=== PATIENT | female | born 1960 | race Caucasian/White ===

== ENCOUNTER 2017-03-01 17:16 | Emergency (ER) | payer MEDICAID, SELFPAY | END 2017-03-01 19:59 | disposition home or self-care (01) | PROVIDERS: Emergency Provider Emergency Medicine; Family Provider Internal Medicine Adolescent Medicine; Visit Provider Emergency Medicine | DX: R07.89 Other chest pain (principal); D61.818 Other pancytopenia; K74.69 Other cirrhosis of liver; I85.10 Secondary esophageal varices without bleeding; Z79.899 Other long term (current) drug therapy | CPT/HCPCS: 71020; 80053; 82550; 82553; 83605; 84484; 85025; 87040; 93005; 99284 ==

== ENCOUNTER → 2017-03-03 | Outpatient (CLI) | payer MEDICAID, SELFPAY | PROVIDERS: Visit Provider Internal Medicine Adolescent Medicine | DX: D50.9 Iron deficiency anemia, unspecified (principal) | CPT/HCPCS: 36415; 85025 ==

== ENCOUNTER → 2017-03-17 15:50 | Outpatient (CLI) | payer MEDICAID, SELFPAY ==
[2017-03-17 16:14] LABS: Eosinophils # 0.1 K/mm3 (0.0-0.4); Eosinophils % 2.9 % (0.1-12.0); Hematocrit 27.5 % (37.0-47.0); Hemoglobin 8.1 g/dL (12.2-16.2); Lymphocytes # 0.7 K/mm3 (0.7-4.5); Mean Corpuscular HGB Conc 29.3 g/dL (31.8-35.4); Mean Corpuscular Hemoglobin 21.8 pg (27.0-31.2); Mean Corpuscular Volume 74.4 fl (81-99); Mean Platelet Volume 8.9 fl (7.4-10.4); Monocytes # 0.2 K/mm3 (0.1-1.0); Neutrophils # 2.1 K/mm3 (1.8-7.8); Platelet Count 90 K/mm3 (142-424); Red Cell Distribution Width 15.5 % (11.5-17.5)
== END ==
PROVIDERS: PCP Internal Medicine Adolescent Medicine; Visit Provider Internal Medicine Adolescent Medicine
DX: D50.9 Iron deficiency anemia, unspecified (principal)
CPT/HCPCS: 36415; 85025

== ENCOUNTER → 2017-04-24 15:06 | Outpatient (CLI) | payer MEDICAID, SELFPAY ==
[2017-04-24 15:31] LABS: Eosinophils # 0.1 K/mm3 (0.0-0.4); Eosinophils % 2.9 % (0.1-12.0); Hematocrit 29.1 % (37.0-47.0); Hemoglobin 8.3 g/dL (12.2-16.2); Lymphocytes # 0.7 K/mm3 (0.7-4.5); Lymphocytes % 24.9 K/mm3 (10-50); Mean Corpuscular HGB Conc 28.6 g/dL (31.8-35.4); Mean Corpuscular Hemoglobin 21.1 pg (27.0-31.2); Mean Corpuscular Volume 73.8 fl (81-99); Mean Platelet Volume 10.1 fl (7.4-10.4); Monocytes # 0.1 K/mm3 (0.1-1.0); Monocytes % 4.5 % (1.7-9.3); Neutrophils % 66.7 % (37.0-80.0); Platelet Count 74 K/mm3 (142-424); Red Blood Count 3.95 M/mm3 (4.20-5.40); Red Cell Distribution Width 16.9 % (11.5-17.5)
[2017-04-24 16:42] LABS: Alanine Aminotransferase 35 U/L (12-78); Albumin Level 3.7 gm/dL (3.4-5.0); Albumin/Globulin Ratio 0.9 (1.1-1.8); Alkaline Phosphatase 134 U/L (46-116); Anion Gap 11.6 mEq/L (5-15); Aspartate Amino Transferase 38 U/L (15-37); Bilirubin,Total 0.5 mg/dL (0.2-1.0); Blood Urea Nitrogen 8 mg/dL (7-18); Calcium 8.7 mg/dL (8.5-10.1); Carbon Dioxide 28 mmol/L (21.0-32.0); Chloride 101 mmol/L (98-107); Creatinine,Serum 0.61 mg/dL (0.55-1.02); Estimated Glomerular Filt Rate 101 ml/min (>60); GFR (African American) 122 ML/MIN (>60); Globulin 4.3 gm/dl (1.3-3.2); Glucose 124 mg/dL (74-106); Potassium 3.6 mmoL/L (3.5-5.1); Sodium 137 mmol/L (136-145)
== END ==
PROVIDERS: PCP Internal Medicine Adolescent Medicine; Visit Provider Internal Medicine Adolescent Medicine
DX: D50.0 Iron deficiency anemia secondary to blood loss (chronic) (principal)
CPT/HCPCS: 36415; 80053; 85025

== ENCOUNTER → 2018-07-02 16:44 | Outpatient (CLI) | payer SELFPAY ==
[2018-07-02 17:51] LABS: Eosinophils # 0.1 K/mm3 (0.0-0.4); Eosinophils % 3.6 % (0.1-12.0); Hematocrit 27.4 % (37.0-47.0); Lymphocytes # 0.6 K/mm3 (0.7-4.5); Lymphocytes % 25.6 % (10-50); Mean Corpuscular HGB Conc 28.4 g/dL (31.8-35.4); Mean Corpuscular Hemoglobin 19.9 pg (27.0-31.2); Mean Corpuscular Volume 70.2 fl (81-99); Mean Platelet Volume 7.4 fl (7.4-10.4); Monocytes # 0.1 K/mm3 (0.1-1.0); Monocytes % 5.3 % (1.7-9.3); Neutrophils # 1.5 K/mm3 (1.8-7.8); Neutrophils % 64.5 % (37.0-80.0); Platelet Count 100 K/mm3 (142-424); Red Cell Distribution Width 18.3 % (11.5-17.5); White Blood Count 2.3 K/mm3 (4.8-10.8)
[2018-07-02 18:14] LABS: Hemoglobin 7.8 g/dL (12.2-16.2)
[2018-07-02 19:10] LABS: Alanine Aminotransferase 23 U/L (12-78); Albumin Level 3.7 gm/dL (3.4-5.0); Albumin/Globulin Ratio 0.8 (1.1-1.8); Alkaline Phosphatase 111 U/L (46-116); Anion Gap 10.6 mEq/L (5-15); Aspartate Amino Transferase 25 U/L (15-37); Bilirubin,Total 0.4 mg/dL (0.2-1.0); Blood Urea Nitrogen 8 mg/dL (7-18); Calcium 9.1 mg/dL (8.5-10.1); Carbon Dioxide 29 mmol/L (21.0-32.0); Chloride 101 mmol/L (98-107); Creatinine,Serum 0.98 mg/dL (0.55-1.02); Estimated Glomerular Filt Rate 58 ml/min (>60); Ferritin 4 ng/mL (8-388); GFR (African American) 71 ML/MIN (>60); Globulin 4.5 gm/dl (1.3-3.2); Glucose 89 mg/dL (74-106); Potassium 3.6 mmoL/L (3.5-5.1); Sodium 137 mmol/L (136-145); Thyroid Stimulating Hormone 2.18 uIU/ml (0.358-3.740); Total Protein,Serum 8.2 gm/dL (6.4-8.2)
[2018-07-04 09:13] LABS: Iron 14 ug/dL (27-159); UIBC 429 ug/dL (131-425)
[2018-07-05 07:09] LABS: Iron Saturation 3 % (15-55)
== END ==
PROVIDERS: Visit Provider Nurse Practitioner Family
DX: R05 Cough (principal); K74.60 Unspecified cirrhosis of liver; D50.9 Iron deficiency anemia, unspecified
CPT/HCPCS: 36415; 80053; 82728; 83540; 83550; 84443; 85025

== ENCOUNTER 2018-07-25 14:38 | Outpatient (CLI) | payer OTHER, SELFPAY ==
[2018-07-25 14:53] VITALS: BP 115/62; PULSE 86; RESP 18; TEMP 36.7; O2SAT 100
[2018-07-25 15:30] VITALS: BP 141/71; PULSE 81; RESP 18; O2SAT 99
== END 2018-07-25 15:43 | disposition home or self-care (01) ==
LOC: INF 14:38
PROVIDERS: Visit Provider Internal Medicine Medical Oncology
DX: D50.9 Iron deficiency anemia, unspecified (principal)
CPT/HCPCS: 96365; J1439

== ENCOUNTER 2018-08-01 14:32 | Outpatient (CLI) | payer OTHER, SELFPAY ==
[2018-08-01 14:47] VITALS: BP 120/69; PULSE 80; RESP 18; TEMP 36.6; O2SAT 96
[2018-08-01 15:17] VITALS: BP 119/66; PULSE 79; RESP 18; O2SAT 97
[2018-08-01 15:30] VITALS: BP 115/67; PULSE 76; RESP 18; O2SAT 96
== END 2018-08-01 15:30 | disposition home or self-care (01) ==
LOC: INF 14:32
PROVIDERS: Visit Provider Internal Medicine Medical Oncology
DX: D50.9 Iron deficiency anemia, unspecified (principal)
CPT/HCPCS: 96365; J1439

== ENCOUNTER → 2019-03-21 16:08 | Outpatient (CLI) | payer OTHER, SELFPAY ==
[2019-03-21 16:36] LABS: Activated Partial Thrombo Time 26.5 seconds (23.6-34.0); INR 1.07 (0.9-1.1); Prothrombin Time 11.1 seconds (9.4-11.8)
[2019-03-21 16:37] LABS: Eosinophils # 0.1 K/mm3 (0.0-0.4); Eosinophils % 3.4 % (0.1-12.0); Hematocrit 38.6 % (37.0-47.0); Hemoglobin 12.8 g/dL (12.2-16.2); Lymphocytes # 0.8 K/mm3 (0.7-4.5); Lymphocytes % 25.5 % (10-50); Mean Corpuscular HGB Conc 33.2 g/dL (31.8-35.4); Mean Corpuscular Hemoglobin 29.7 pg (27.0-31.2); Mean Corpuscular Volume 89.6 fl (81-99); Mean Platelet Volume 9.2 fl (7.4-10.4); Monocytes # 0.2 K/mm3 (0.1-1.0); Monocytes % 5.1 % (1.7-9.3); Platelet Count 73 K/mm3 (142-424); Red Blood Count 4.31 M/mm3 (4.20-5.40); Red Cell Distribution Width 13.5 % (11.5-17.5); White Blood Count 3.1 K/mm3 (4.8-10.8)
[2019-03-21 16:52] LABS: Ammonia < 10 umol/L (19-54)
[2019-03-21 17:11] LABS: Alanine Aminotransferase 34 U/L (12-78); Albumin Level 3.7 gm/dL (3.4-5.0); Albumin/Globulin Ratio 0.9 (1.1-1.8); Alkaline Phosphatase 164 U/L (46-116); Anion Gap 11.3 mEq/L (5-15); Aspartate Amino Transferase 33 U/L (15-37); Bilirubin,Total 0.5 mg/dL (0.2-1.0); Blood Urea Nitrogen 16 mg/dL (7-18); Carbon Dioxide 29 mmol/L (21.0-32.0); Chloride 99 mmol/L (98-107); Creatinine,Serum 0.67 mg/dL (0.55-1.02); Estimated Glomerular Filt Rate 90 ml/min (>60); GFR (African American) 109 ML/MIN (>60); Glucose 80 mg/dL (74-106); Potassium 4.3 mmoL/L (3.5-5.1); Sodium 135 mmol/L (136-145); Total Protein,Serum 7.7 gm/dL (6.4-8.2)
[2019-03-23 07:49] LABS: Iron 62 ug/dL (27-159); UIBC 308 ug/dL (131-425)
[2019-03-24 17:57] LABS: Iron Saturation 17 % (15-55)
== END ==
PROVIDERS: Visit Provider Internal Medicine Adolescent Medicine
DX: K74.60 Unspecified cirrhosis of liver (principal); D50.9 Iron deficiency anemia, unspecified
CPT/HCPCS: 36415; 80053; 82140; 83540; 83550; 85025; 85610; 85730

== ENCOUNTER → 2019-03-26 08:29 | Outpatient (CLI) | payer OTHER, SELFPAY ==
--- NOTE | 2019-03-26 08:38 | US_ITS ---
PROCEDURE: US ABDOMEN LIMITED CLINICAL INDICATION: NON ALCOHOLIC CIRRHOSIS COMPARISON: ABD US ABD(COMPLETE-MULTI ORGANS from 02/02/2015 FINDINGS: PANCREAS: Unremarkable. No obvious mass or abnormal fluid collection. No ductal dilatation LIVER: The liver has a cirrhotic appearance. There is appropriate direction of blood flow within a prominent portal vein which measures up to 17 mm. Common bile duct is not dilated. RIGHT KIDNEY: Unremarkable. Normal size and echogenicity. No hydronephrosis GALLBLADDER: Gallbladder wall appears slightly thickened measuring up to 4 mm. No gallstones apparent. IMPRESSION: 1. Cirrhotic appearing liver. 2. Enlarged portal vein suggesting portal hypertension with appropriate direction of blood flow within the portal vein. 3. Mild nonspecific gallbladder wall thickening Dictated by: Kiel Gaffney MD 03/27/2019 11:55 Electronically signed by Kiel Gaffney MD in [place] 03/27/2019 11:55
== END ==
PROVIDERS: PCP Internal Medicine Adolescent Medicine; Visit Provider Internal Medicine Adolescent Medicine
DX: K74.60 Unspecified cirrhosis of liver (principal)
CPT/HCPCS: 76705

== ENCOUNTER 2019-09-12 10:42 | Emergency (ER) | payer OTHER, SELFPAY ==
[2019-09-12 10:44] VITALS: BP 162/76; PULSE 95; RESP 21; O2SAT 98; BMI 21.7
--- NOTE | 2019-09-12 11:04 | XR_ITS ---
PROCEDURE: XR LUMBAR SPINE 2-3V CLINICAL INDICATION: pain COMPARISON: ABDPELW/O CT ABD PELVIS W/O CONTRAST from 07/01/2016 FINDINGS: Mild levoscoliosis of the lumbar spine. There is minimal wedging involving L3 superiorly P which was not present on a previous CT scan of 07/01/2016. Calcification noted in the left mid abdominal region at 3 mm and may be due to a E renal stone no other significant anomalies are evident. IMPRESSION: 1. Scoliosis with mild wedging of L3 age indeterminate 2. Left nephrolithiasis Dictated by: Kiel Gaffney MD 09/12/2019 11:53 Electronically signed by Kiel Gaffney MD in [place] 09/12/2019 11:53
--- NOTE | 2019-09-12 11:16 | PC.NURSE ---
Pt to rad. Prior to leaving pt states that she is unable to pee because she only urinates once a day and she has already peed this morning.
--- NOTE | 2019-09-12 12:07 | HMH.EDGENADL ---
ED Disposition Clinical Impression: Sacroiliac joint dysfunction of right side Disposition: Home, Self-Care Condition on Discharge: Good Instructions: DI for Acute Pain -- Adult Prescriptions: methylPREDNISolone [Medrol 4mg tab] 4 mg PO DIRECTED #21 tab Transmission Status: Pending to [facility] 493 Nabumetone 750 mg PO BID 10 Days #20 tab Transmission Status: Pending to [facility] 493 Tizanidine HCl [Zanaflex 4mg tablet] 4 mg PO TID 10 Days #30 tab Transmission Status: Pending to [facility] 493 Referrals: Gold Gongora MD [Primary Care Provider] - - Critical Care Critical Care Time: No Attestation: On 09/12/19, the high probability of a clinically significant, sudden or life threatening deterioration of the following system(s) required my full and direct attention, intervention and personal management. The time I documented below is in addition to time spent performing reported procedures but includes the following listed in this critical care notation. Medical Decision Making - Rufino Inquiry Pt receiving controlled substance: No Vital Signs: 09/12/19 10:44 Pulse Rate [Radial] 95 H Respiratory Rate 21 Blood Pressure [Right Arm] 162/76 H Blood Pressure Mean [Right Arm] 104 Blood Pressure Source [Right Arm] Automatic Cuff Blood Pressure Position [Right Arm] Sitting 02 Sat by Pulse Oximetry 98 Oxygen Delivery Method Room Air - Lab Data Lab results reviewed: Yes: I reviewed the patient's lab results. Orders (Tests/Meds): ED MEDICATIONS Discontinued Medications Generic Name Dose Route Start Last Admin Trade Name Freq PRN Reason Stop Dose Admin Ketorolac Tromethamine 60 mg 09/12/19 12:06 Toradol 60mg/2ml Vial IM 09/12/19 12:07 ONCE ONE Methylprednisolone Sodium Succinate 125 mg 09/12/19 12:06 Solu-Medrol 125mg/2ml Vial IM 09/12/19 12:07 ONCE ONE Orphenadrine Citrate 60 mg 09/12/19 12:06 Norflex 60mg/2ml Vial IM 09/12/19 12:07 ONCE ONE ORDERS Category Date Time Status UA [Urinalysis and Microscopic] Stat Lab 09/12/19 11:12 Ordered - Radiology Data #1 Image(s): L-Spine Preliminary Findings: Normal/NAD General Adult HPI - General Chief complaint: PAIN Stated complaint: back pain Time Seen by Provider: 09/12/19 12:03 Mode of Arrival: Ambulatory Source of Information: Patient Limitations: No Limitations Description of Symptoms (Recalled from ER Triage Doc. by RN): states she bent over and felt a pop in her lower back. states it hurts in her hips and legs. - History of Present Illness HPI narrative: We have a pleasant 58-year-old female who presents to emergency department with acute onset of lower back pain. She states she was at work and she when she bent over to not pick anything up just, twisted she felt a pop in her back and acute pain on the right side with some pain radiating down her leg. She states that this pain is about 8 out of 10 classifies as a sharp sensation. She states it is right at the belt line or maybe a little superior on the right with some pain going down to the gluteal region and also the back of her leg to about the knee. She states that the only alleviating factors is laying flat or standing straight up exacerbating factors include sitting and movement and ambulation. Patient denies any fever shakes or chills. Patient denies any bowel or bladder incontinence.Patient denies any recent cough or shortness of breath, patient denies any sore throat or headache, patient denies any loss of taste or smell, patient denies any malaise or fatigue, patient denies any abdominal pain nausea vomiting or diarrhea. - Related Data Home Medications Medication Instructions Recorded Confirmed Lactulose [Lactulose 10gm/15ml 10 gm PO DAILY 11/06/17 08/01/18 Oral Soln] Ferrous Sulfate [Ferrous Sulfate 325 mg PO DAILY 07/25/18 08/01/18 325mg Tablet] Previous Rx's Medication
[2019-09-12 12:27] VITALS: BP 162/76; PULSE 95; RESP 21; TEMP 36.7; O2SAT 98
== END 2019-09-12 12:37 | disposition home or self-care (01) ==
PROVIDERS: Emergency Provider Family Medicine; PCP Internal Medicine Adolescent Medicine
DX: M53.3 Sacrococcygeal disorders, not elsewhere classified (principal); X50.0XXA Overexertion from strenuous movement or load, initial encounter; Y92.89 Other specified places as the place of occurrence of the external cause
CPT/HCPCS: 72100; 96372; 99282

== ENCOUNTER 2019-09-20 12:57 | Emergency (ER) | payer OTHER, SELFPAY ==
--- NOTE | 2019-09-20 13:12 | XR_ITS ---
PROCEDURE: XR SHOULDER RT MIN 2V CLINICAL INDICATION: fall Pain following injury COMPARISON: No exams were available for comparison FINDINGS: No fracture or dislocation. There are few small sub chondral cystic areas in the humeral head. Artifact is present with curvilinear areas of increased density posterior to the scapula consistent with a garment artifact. IMPRESSION: No acute findings. Dictated by: Kiel Gaffney MD 09/20/2019 13:41 Electronically signed by Kiel Gaffney MD in [place] 09/20/2019 13:41
[2019-09-20 13:14] VITALS: BP 114/78; PULSE 92; RESP 21; TEMP 36.6; O2SAT 100; BMI 20.8
--- NOTE | 2019-09-20 13:19 | HMH.EDUTC ---
[facility] [place] Clinical Impression: Contusion, shoulder /upper arm Disposition: Home, Self-Care Condition on Discharge: Good Instructions: How To Perform RICE (Rest, Ice, Compress, Elevate), How to Use a Sling, DI for Shoulder Pain, Ibuprofen Additional Instructions: *RICE, Rest the extremity, Ice 15-20 minutes 3-4 times daily, Compress- wear the haja wrap as discussed as much as possible to help reduce swelling and pain, Elevate the extremity when at rest *Sling/Haja wrap is for support and help control swelling, use it except in the shower. Be sure that is not to tight but not to loose either *Elevate when resting *Ibuprofen 600-800mg every 6-8 hours as needed for pain an inflammation.Over the counter Muscle rubs like biofreeze may help with sore muscles Immediately follow up with your family doctor for new or worsening of symptoms, or no noticeable improvement over the next 3-5 days Return if needed Straight to ER if any life threatening symptoms Continue taking Nabumetone as prescribed for pain Referrals: Gold Gongora MD [Primary Care Provider] - As needed Time of Disposition: 13:48 Medical Decision Making - Rufino Inquiry Pt receiving controlled substance: No Rufino was queried for this patient: No Vital Signs: 09/20/19 13:14 Temperature 97.9 F Temperature Source Oral Pulse Rate [Left Brachial] 92 H Respiratory Rate 21 Blood Pressure [Left Arm] 114/78 Blood Pressure Mean [Left Arm] 90 Blood Pressure Source [Left Arm] Automatic Cuff Blood Pressure Position [Left Arm] Sitting 02 Sat by Pulse Oximetry 100 Oxygen Delivery Method Room Air Orders (Tests/Meds): ORDERS Category Date Time Status XR shoulder RT min 2V Stat Exams 09/20/19 13:12 Taken - Radiology Data #1 Image(s): Shoulder Image Reviewed: Yes I have reviewed radiologist's interpretation Preliminary Findings: No Fracture Seen No acute findings [facility] [place]PI - General Stated complaint: AO [id number] fell on right shoulder Time Seen by Provider: 09/20/19 13:20 Mode of Arrival: Ambulatory Source of Information: Patient Limitations: No Limitations Description of Symptoms (Recalled from Triage Doc. by RN): PATIENT C/O RIGHT SHOULDER PAIN AFTER FALLING ON 09/17/19 HEENT Symptoms (Recalled from RN notes): No Resp Symptoms (Recalled from RN notes): No Skin Symptoms (Recalled from RN notes): No MS Symptoms (Recalled from RN notes): Yes Functional Status (Recalled from RN notes): WNL - History of Present Illness Provider Complaint: Patient states that she has been staying and helping to care for her grandson at [facility] when she tripped and fell on 09/17/2019 and landed on her right shoulder States that ever since she has been having pain in her right shoulder area and hurts when she moves or raises her arm States they tried to get her to go to the ER right after she fell but she refused and today she came in to get it checked before she went back to the hospital Denies any other injury - Related Data Home Medications Medication Instructions Recorded Confirmed Lactulose [Lactulose 10gm/15ml 10 gm PO DAILY 11/06/17 09/20/19 Oral Soln] Allergies Allergy/AdvReac Type Severity Reaction Status Date / Time No Known Allergies Allergy Unverified 07/19/18 14:32 - Worker's Comp Is this a Worker's Comp case?: No [facility] History - Hepatitis A Screen Drug use history?: No High risk sexual behaviors?: No History of sexually transmitted infection?: No Currently employed?: No Childcare worker?: No Do you have indoor plumbing?: Yes Do you have electricity?: Yes Attestation statement:: This patient has been screened for Hepatitis A risk factors. I have reviewed the patient's past medical history: Yes Medical History: Denies:: Diabetes Mellitus Type 1, Diabetes Mellitus Type 2 Other Medical History: Reports: Anemia - Social History Smoking Status: Never smoker Alcohol Intake: never Substance Use Type: denies use Occu
[2019-09-20 13:52] VITALS: BP 114/78; PULSE 92; RESP 21; TEMP 36.6; O2SAT 100
== END 2019-09-20 14:04 | disposition home or self-care (01) ==
PROVIDERS: Emergency Provider Nurse Practitioner; PCP Internal Medicine Adolescent Medicine
DX: S40.011A Contusion of right shoulder, initial encounter (principal); W01.0XXA Fall on same level from slipping, tripping and stumbling without subsequent striking against object, initial encounter; Y92.019 Unspecified place in single-family (private) house as the place of occurrence of the external cause
CPT/HCPCS: 73030; 99201

== ENCOUNTER 2019-12-31 13:16 | Emergency (ER) | payer OTHER, SELFPAY ==
[2019-12-31 13:23] VITALS: BP 107/71; PULSE 91; RESP 20; TEMP 36.8; O2SAT 98; BMI 23.3
[2019-12-31 13:34] VITALS: BP 142/73; PULSE 97; RESP 19; TEMP 36.8; O2SAT 97; BMI 22.6
--- NOTE | 2019-12-31 13:51 | HMH.EDUTC ---
[facility] [place] Clinical Impression: Low back pain Qualifiers: Chronicity: acute Back pain laterality: bilateral Sciatica presence: with sciatica Sciatica laterality: sciatica of left side Qualified Code(s): M54.42 - Lumbago with sciatica, left side Radiculopathy Qualifiers: Spinal region: unspecified Qualified Code(s): M54.10 - Radiculopathy, site unspecified UTI (urinary tract infection) Qualifiers: Urinary tract infection type: site unspecified Hematuria presence: with hematuria Qualified Code(s): N39.0 - Urinary tract infection, site not specified Disposition: Home, Self-Care Condition on Discharge: Good Instructions: Urinary Tract Infection, DI for Low Back Pain, DI for Sciatica Additional Instructions: Go home and rest. It would be best if you rested tomorrow too. Drink plenty of fluids. No heavy lifting. No twisting. Take the oral medications as directed. The muscle relaxer (robaxin) will make you drowsy, so don't drive or operate heavy machinery after taking it. Follow up with your regular doctor. GO TO THE ER FOR ANY WORSENING SYMPTOMS OR CONCERN, ESPECIALLY BOWEL OR BLADDER ISSUES, SADDLE AREA NUMBNESS, FEVER, ETC Prescriptions: Sulfamethoxazole/Trimethoprim [Bactrim DS tablet] 1 each PO BID 7 Days #14 tab [facility] methylPREDNISolone [Medrol] 4 mg PO DIRECTED 6 Days #21 tab.ds.pk [facility]: [facility] 493 Phenazopyridine HCl [Pyridium 200mg Tablet] 200 pow PO TID #6 tab Transmission Status: Received by [facility] 493 Methocarbamol [Robaxin 500mg Tab] 500 mg PO BIDP PRN #30 tab PRN Reason: Muscle Spasm [facility] Referrals: Gold Gongora MD [Primary Care Provider] - Forms: Work/School Release Time of Disposition: 14:54 Medical Decision Making - Medical Records Medical records reviewed: No: I reviewed the patient's medical records. - Rufino Inquiry Pt receiving controlled substance: No Vital Signs: 12/31/19 13:23 12/31/19 13:34 12/31/19 15:33 Temperature 98.3 F 98.3 F 98.3 F Temperature Source Oral Oral Pulse Rate 97 H Pulse Rate [Radial] 91 H 97 H Respiratory Rate 20 19 19 Blood Pressure 142/73 H Blood Pressure [Right Radial Artery] 107/71 L 142/73 H Blood Pressure Mean [Right Radial Artery] 83 96 Blood Pressure Source Automatic Cuff Blood Pressure Source [Right Radial Artery] Automatic Cuff Blood Pressure Position Sitting Blood Pressure Position [Right Radial Artery] Sitting Sitting 02 Sat by Pulse Oximetry 98 97 Oxygen Delivery Method Room Air Room Air - Lab Data Lab results reviewed: Yes: I reviewed the patient's lab results. Lab Results 12/31/19 15:11: Urine Color [place], Urine Appearance Cloudy, Urine pH 6.0, Ur Specific [place] 1.025, Urine Protein 1+, Urine Glucose (UA) Negative, Urine Ketones Negative, Urine Blood 2+, Urine Nitrate Positive A, Urine Bilirubin 2+ A, Urine Urobilinogen 1, Ur Leukocyte Esterase 1+ A Orders (Tests/Meds): ED MEDICATIONS Discontinued Medications Generic Name Dose Route Start Last Admin Trade Name Freq PRN Reason Stop Dose Admin Ceftriaxone Sodium 1 gm 12/31/19 14:48 12/31/19 15:07 Ceftriaxone 1gm Vial IM 12/31/19 14:49 1 gm ONCE ONE Administration Protocol Ketorolac Tromethamine 60 mg 12/31/19 14:48 12/31/19 15:07 Ketorolac 60mg/2ml Vial IM 12/31/19 14:49 60 mg ONCE ONE Administration Lidocaine HCl 0 ml 12/31/19 14:48 12/31/19 15:07 Lidocaine 1% 5ml Pf Vial IM 12/31/19 14:49 2.1 ml ONCE ONE Administration ORDERS Category Date Time Status Urine Culture Routine Micro 12/31/19 15:12 Ordered - Radiology Data #1 Image(s): L-Spine Image Reviewed: Yes I reviewed the patient's radiology image, Yes I have reviewed radiologist's interpretation Preliminary Findings: Abnormal PROCEDURE: XR LUMBAR SPINE 2-3V CLI
--- NOTE | 2019-12-31 13:57 | XR_ITS ---
PROCEDURE: XR LUMBAR SPINE 2-3V CLINICAL INDICATION: low back pain COMPARISON: CR XR LUMBAR SPINE 2-3V from 09/12/2019 FINDINGS: There is mild wedging of L3 which is increased compared to the previous exam. There is loss of height anteriorly of approximately 30 percent with anterior osteophyte noted. No obvious retropulsion. There is mild lumbar scoliosis convex left. Other findings:None. IMPRESSION: Slight increase wedging of L3 with scoliosis Dictated by: Kiel Gaffney MD 12/31/2019 14:39 Kiel Gaffney MD in [place] 12/31/2019 14:39
[2019-12-31 15:33] VITALS: BP 142/73; PULSE 97; RESP 19; TEMP 36.8; O2SAT 97
[2019-12-31 15:33] LABS: Apearance,Urine Cloudy (Clear); Color,Urine Amber (Yellow); Protein,Urine 1+ (Negative); Specific Gravity, Urine 1.025 (1.005-1.030)
[2019-12-31 15:34] LABS: Bilirubin,Urine 2+ (Negative); Blood, Urine 2+ (Negative); Glucose,Urine (UA) Negative (Negative); Ketones,Urine Negative (Negative); Urobilinogen,Urine 1 EU/dl (0.2)
[2019-12-31 15:35] LABS: UTC Leukocyte Esterase,Urine 1+ (Negative); UTC Nitrate,Urine Positive (Negative)
== END 2019-12-31 15:34 | disposition home or self-care (01) ==
LOC: ER 13:23 → UTC 13:24
PROVIDERS: Emergency Provider Nurse Practitioner Family; PCP Internal Medicine Adolescent Medicine
DX: M54.42 Lumbago with sciatica, left side (principal); M54.10 Radiculopathy, site unspecified; N39.0 Urinary tract infection, site not specified
CPT/HCPCS: 72100; 81003; 87086; 87088; 87186; 96372; 99202

== ENCOUNTER 2020-01-02 13:59 | Observation (INO) | payer OTHER, SELFPAY ==
[2020-01-02] VITALS (10 sets, daily range): BP systolic 96–129; BP diastolic 54–87; PULSE 69–103; RESP 17–20; TEMP 36.8–39.4; O2SAT 95–100; BMI 21.9; BMI 22.3
--- NOTE | 2020-01-02 14:18 | XR_ITS ---
PROCEDURE: XR CHEST PORTABLE CLINICAL HISTORY: cough COMPARISON: CR CXR CHEST(2 VIEWS-NOT PORTABLE) from 05/25/2015 CR CXR CHEST(2 VIEWS-NOT PORTABLE) from 02/12/2017 CR CXR CHEST(2 VIEWS-NOT PORTABLE) from 03/01/2017 FINDINGS: The cardiomediastinal silhouette and pulmonary vascularity are within normal limits. COPD changes. Slightly elevated left hemidiaphragm. No lobar consolidation or collapse. No acute bony abnormalities. IMPRESSION: No acute findings. Dictated by: Kiel Gaffney MD 01/03/2020 17:05 Kiel Gaffney MD in [place] 01/03/2020 17:05
--- NOTE | 2020-01-02 14:21 | CT_ITS ---
PROCEDURE: CT ABDOMEN PELVIS W CON CLINICAL INDICATION: flank pain Bilateral flank pain COMPARISON: CT ABDPELW/O CT ABD PELVIS W/O CONTRAST from 07/01/2016 CR XR LUMBAR SPINE 2-3V from 12/31/2019 TECHNIQUE: IV Contrast: 75ML OPTIRAY 350 Oral Contrast None Axial images obtained with sagittal and coronal reformats. All CT scans at the facility use one or more dose reduction, viz: automated exposure control, ma/kV adjustment per patient size (including targeted exams where dose is matched to indication, i.e. head), or iterative reconstruction technique. FINDINGS: LOWER THORAX: There are mild atelectatic changes in the right lung base. ABDOMEN & PELVIS: The liver has an irregular contour consistent with cirrhosis. There is lobularity of the anterior segment of the right hepatic lobe. The spleen is enlarged at 17 cm. There is enlargement of the splenic vein and the portal vein. The portal vein measures up 2 cm consistent with portal hypertension. There are scattered small varices noted in the gastrohepatic area and in the perisplenic region. There are bilateral renal calculi measuring up to 3 mm in the upper pole on the right and 4 mm in the lower pole on the left. No ureteral calculi are evident. There are small retroperitoneal lymph nodes. The the appendix is mildly thickened at 8 mm however, there is air present within the appendiceal lumen. No stranding of the periappendiceal fat. Multiple unopacified bowel loops in the abdomen or pelvis which could obscure or mimic pathology. If symptoms persist, consider repeat exam with IV and oral contrast.. Calcification is present in the left adnexal region. There are fluid-filled loops of small bowel in the pelvis which are nondistended with few scattered air-fluid levels which are nonspecific. There is mild lumbar scoliosis convex left with mild wedging involving the L3 vertebral body. This has developed since the previous exam with loss of height anteriorly of approximately 30 percent. IMPRESSION: Cirrhosis of the liver with splenomegaly and portal hypertension with large portal vein. Scattered nondistended fluid-filled loops of small bowel in the pelvis. There are few air-fluid levels. This is nonspecific and may be due to enteritis or ileus. Multiple unopacified bowel loops in the abdomen or pelvis which could obscure or mimic pathology. If symptoms persist, consider repeat exam with IV and oral contrast.. The appendix is slightly prominent however, this is similar compared to the previous exam. Mild wedging of L3 with loss of height anteriorly of approximately 30 percent. This is age indeterminate not readily apparent on the previous exam. Bilateral nephrolithiasis. No obstructing ureteral calculi evident. Dictated by: Kiel Gaffney MD 01/02/2020 15:34 Kiel Gaffney MD in [place] 01/02/2020 15:34
[2020-01-02 14:29] LABS: Appearance,Urine CLEAR (Clear); Blood, Urine TRACE-I (Negative); Color,Urine YELLOW (Yellow); Glucose,Urine (UA) TRACE (Negative); Ketones,Urine TRACE (Negative); Leukocyte Esterase,Urine 2+ (Negative); Microscopic, Urine URINE MICROSCOPIC (MICROSCOPIC); Nitrate,Urine POSITIVE (Negative); Protein,Urine 1+ (Negative); Urobilinogen,Urine >=8.0 EU/dl (0.2)
--- NOTE | 2020-01-02 14:29 | PC.NURSE ---
MD stated he wished to initiate sepsis bolus regardless of her not meeting criteria yet, MD stated he still wish to initiate the fluids.
[2020-01-02 14:32] LABS: Basophils % 0.3 % (0.1-2.0); Eosinophils % 0.3 % (0.1-12.0); Hematocrit 28.9 % (37.0-47.0); Hemoglobin 9.1 g/dL (12.2-16.2); Lymphocytes # 0.5 K/mm3 (0.7-4.5); Lymphocytes % 15.2 % (10-50); Mean Corpuscular HGB Conc 31.6 g/dL (31.8-35.4); Mean Corpuscular Hemoglobin 24.2 pg (27.0-31.2); Mean Corpuscular Volume 76.4 fl (81-99); Mean Platelet Volume 9.4 fl (7.4-10.4); Monocytes # 0.2 K/mm3 (0.1-1.0); Neutrophils # 2.4 K/mm3 (1.8-7.8); Neutrophils % 79.3 % (37.0-80.0); Platelet Count 73 K/mm3 (142-424); Red Blood Count 3.78 M/mm3 (4.20-5.40); Red Cell Distribution Width 16.1 % (11.5-17.5)
[2020-01-02 14:32] LABS: Bilirubin,Urine 2+ (Negative)
--- NOTE | 2020-01-02 14:33 | HMH.EDFEV ---
ED Disposition Clinical Impression: Pyelonephritis, Thrombocytopenia Sepsis Qualifiers: Sepsis type: Escherichia coli Sepsis acute organ dysfunction status: without acute organ dysfunction Qualified Code(s): A41.51 - Sepsis due to Escherichia coli [E. coli] Anemia Qualifiers: Anemia type: other cause Other causes of anemia: other cause, not classified Qualified Code(s): D64.89 - Other specified anemias Leukopenia Qualifiers: Leukopenia type: other Qualified Code(s): D72.818 - Other decreased white blood cell count Disposition: Admitted As Inpatient Condition on Discharge: Serious - Critical Care Critical Care Time: Yes Attestation: On 01/02/20, the high probability of a clinically significant, sudden or life threatening deterioration of the following system(s) required my full and direct attention, intervention and personal management. The time I documented below is in addition to time spent performing reported procedures but includes the following listed in this critical care notation. Total Critical Care Time: 30 Vital system(s) involved:: Circulatory Failure, Metabolic Failure, Shock (Septic) My critical care processes included: Assessment & monitoring of V/S, Initial and Re-exams, Data Review/Interpretation, Coordinating Care, Medication Orders and management, Documentation Medical Decision Making - Medical Records Medical records reviewed: Yes: I reviewed the patient's medical records. - Rufino Inquiry Pt receiving controlled substance: No Vital Signs: 01/02/20 14:00 01/02/20 14:30 01/02/20 15:23 Temperature 103 F H Temperature Source Oral Pulse Rate [Right] 103 H 90 86 Respiratory Rate 17 Blood Pressure [Right Arm] 129/83 110/68 107/58 L Blood Pressure Mean [Right Arm] 98 82 74 Blood Pressure Source [Right Arm] Automatic Cuff Automatic Cuff Blood Pressure Position [Right Arm] Sitting Sitting 02 Sat by Pulse Oximetry 98 100 97 Oxygen Delivery Method Room Air Room Air 01/02/20 16:00 Temperature Temperature Source Pulse Rate [Right] 90 Respiratory Rate Blood Pressure [Right Arm] 105/56 L Blood Pressure Mean [Right Arm] 72 Blood Pressure Source [Right Arm] Automatic Cuff Blood Pressure Position [Right Arm] Sitting 02 Sat by Pulse Oximetry 97 Oxygen Delivery Method Room Air - Lab Data Lab Results 01/02/20 14:19: Urine Color Yellow, Urine Appearance Clear, Urine pH 6.0, Ur Specific [place] 1.010, Urine Protein 1+, Urine Glucose (UA) Trace, Urine Ketones Trace, Urine Blood Trace-i, Urine Nitrate Positive, Urine Bilirubin 2+ A, Urine Urobilinogen >=8.0, Ur Leukocyte Esterase 2+ A, Urine RBC 10-20, Urine WBC 5-10, Ur Squamous Epith Cells 3-5, Urine Bacteria 1+ 01/02/20 14:25: WBC 3.0 L, RBC 3.78 L, Hgb 9.1 L, Hct 28.9 L, MCV 76.4 L, MCH 24.2 L, MCHC 31.6 L, RDW 16.1, Plt Count 73 L, MPV 9.4, Neut % (Auto) 79.3, Lymph % (Auto) 15.2, Mcintosh % (Auto) 5.0, Eos % (Auto) 0.3, Baso % (Auto) 0.3, Neut # (Auto) 2.4, Lymph # (Auto) 0.5 L, Mcintosh # (Auto) 0.2, Eos # (Auto) 0.0, Baso # (Auto) 0.0 01/02/20 14:25: Sodium 129 L, Potassium 3.2 L, Chloride 97 L, Carbon Dioxide 23, Anion Gap 12.2, BUN 12, Creatinine 0.90, Estimated Creat Clear 65, Estimated GFR 64, Est GFR ( Amer) 77, Glucose 106 H, Calcium 9.2, Total Bilirubin 1.2, AST 32, ALT 19, Alkaline Phosphatase 130 H, Troponin I < 0.01, Total Protein 8.2, Albumin 4.0, Globulin 4.2 H, Albumin/Globulin Ratio 1.0 L, Lipase 82 01/02/20 14:25: Lactate 1.7 01/02/20 14:25: PT 12.4 H, INR 1.13 H, APTT 28.6 01/02/20 14:25: Ammonia < 9 L Result diagrams: 01/02/20 14:25 01/02/20 14:25 Orders (Tests/Meds): ED MEDICATIONS Generic Name Dose Route Start Last Admin Trade Name Freq PRN Reason Stop Dose Admin Ceftriaxone Sodium 1 gm/ 50 mls @ 100 mls/hr 01/02/20 14:30 01/02/20 14:36 Sodium Chloride IV 01/16/20 14:29 100 mls/hr Q24H DORINA Administration Protocol Sodium Chloride 1,850 mls @ 925 mls/hr 01/02/20 14:28 01/02/20 14:36 Sod
[2020-01-02 14:34] LABS: Bacteria,Urine 1+ /lpf
[2020-01-02 14:35] LABS: Chloride 97 mmol/L (98-107)
[2020-01-02 14:36] LABS: Sodium 129 mmol/L (136-145)
[2020-01-02 14:38] LABS: Blood Urea Nitrogen 12 mg/dl (7-17); Creatinine Clearance Estimated 65 mL/min (50-200); Estimated Glomerular Filt Rate 64 ml/min (>60); GFR (African American) 77 ML/MIN (>60)
[2020-01-02 14:39] LABS: Alanine Aminotransferase 19 U/L (12-78); Alkaline Phosphatase 130 U/L (38-126); Aspartate Amino Transferase 32 U/L (14-36); Bilirubin,Total 1.2 mg/dl (0.2-1.3); Calcium 9.2 mg/dl (8.4-10.2); Carbon Dioxide 23 mmol/L (22.0-30.0); Globulin 4.2 g/dL (1.3-3.2); Glucose 106 mg/dl (74-100); Lipase 82 U/L (23-300); Total Protein,Serum 8.2 g/dl (6.3-8.2)
[2020-01-02 14:40] LABS: Ammonia < 9 umol/L (9-30); Lactic Acid 1.7 mmol/L (0.7-2.1)
[2020-01-02 14:45] LABS: Activated Partial Thrombo Time 28.6 seconds (23.6-34.0); INR 1.13 (0.9-1.1); Prothrombin Time 12.4 seconds (9.4-11.8)
[2020-01-02 15:03] LABS: Troponin I < 0.01 ng/ml (0.00-0.034)
[2020-01-02 15:07] LABS: Anion Gap 12.2 mEq/L (5-15); Potassium 3.2 mmoL/L (3.5-5.1)
--- NOTE | 2020-01-02 16:18 | PC.NURSE ---
Dr Gongora called and spoke to Dr Jon
--- NOTE | 2020-01-02 16:19 | HMH.PHAVTE ---
[facility] Pharmacy VTE Monitoring - Patient Demographics Admission date: 01/02/20 Report Date: 01/02/20 Time: 16:19 Allergies/Adverse Reactions: Patient Allergies No Known Allergies Allergy (Unverified 07/19/18 14:32) Height: 1.68 m Weight: 61.689 kg Patient Problems: Current Active Problems Anemia (Acute) Thrombocytopenia (Acute) Leukopenia (Acute) Pyelonephritis (Acute) Sepsis (Acute) - VTE Risk Labs: VTE Related Lab Results Hgb 9.1 g/dL (12.2-16.2) L 01/02/20 14:25 Hct 28.9 % (37.0-47.0) L 01/02/20 14:25 Plt Count 73 K/mm3 (142-424) L 01/02/20 14:25 PT 12.4 seconds (9.4-11.8) H 01/02/20 14:25 INR 1.13 (0.9-1.1) H 01/02/20 14:25 APTT 28.6 seconds (23.6-34.0) 01/02/20 14:25 BUN 12 mg/dl (7-17) 01/02/20 14:25 Creatinine 0.90 mg/dl (0.52-1.04) 01/02/20 14:25 Estimated Creat Clear 65 mL/min (50-200) 01/02/20 14:25 - Prophylaxis VTE Prophylaxis Ordered?: Yes Types of VTE Prophylaxis: TEDS Knee High Location of Applied Device: Bilateral Lower Extremeties
[2020-01-02 16:30] LABS: Coronavirus 19 IgG Antibody Negative (Negative); Coronavirus 19 IgM Antibody Negative (Negative)
--- NOTE | 2020-01-02 16:42 | PC.NURSE ---
Notified 2nd floor of pt being ready for transport
--- NOTE | 2020-01-02 17:42 | HMH.HP ---
*Admission Date: 01/02/20 *Chief complaint: Fever and chills *History of present illness: 59-year-old white female with history of nonalcoholic cirrhosis and chronic anemia secondary to multiple medical problems who came to the emergency department 2 days ago, was diagnosed with mechanical back pain, and sent home with muscle relaxer. She failed to improve and was on the phone with one of my nurse practitioner colleagues this morning doing a telehealth visit and complained of fever, disorientation and chills. Sent to the emergency department. Found to have pyelonephritis, culture from 2 days ago has grown E. coli, pansensitive, she was given fluid boluses, ceftriaxone, felt much better and transferred to the floor. [facility] History I have reviewed the patient's past medical history: Yes Medical History: Denies:: Cancer, Diabetes Mellitus Type 1, Diabetes Mellitus Type 2, MRSA *Have you ever received a pneumonia vaccine?: No *Have you received a flu vaccine this season?: No Other Medical History: Reports: Anemia Comment:: Nonalcoholic liver cirrhosis Other Surgeries: Yes: Amputation: No Fractures: No - *Social History Last grade of school completed: High school graduate Smoking Status: Never smoker Alcohol Intake: never Substance Use Type: denies use *Occupational Status:: employed Housing: house Household Members: spouse *Travel in the last 8 weeks: None Family Hx:: No significant family history Review of Systems - Review of Systems Review of systems:: pertinent systems reviewed and negative unless documented below - *Neurologic Denies headache(s) Meds Home Medications Medication Instructions Recorded Confirmed Type Lactulose [Lactulose 10gm/15ml 10 gm PO DAILY 11/06/17 01/02/20 History Oral Soln] Methocarbamol [Robaxin 500mg Tab] 500 mg PO BIDP PRN #30 tab 12/31/19 01/02/20 Rx Phenazopyridine HCl [Pyridium 200 pow PO TID 01/02/20 01/02/20 History 200mg Tablet] Sulfamethoxazole/Trimethoprim 1 each PO BID 01/02/20 01/02/20 History [Bactrim DS tablet] methylPREDNISolone [Medrol] 4 mg PO DIRECTED 01/02/20 01/02/20 History Allergies Allergy/AdvReac Type Severity Reaction Status Date / Time No Known Allergies Allergy Unverified 07/19/18 14:32 Exam Vital signs and Labs for Last 24 Hours: Temp Pulse Resp BP Pulse Ox 98.6 F 69 20 96/58 L 97 01/02/20 17:39 01/02/20 17:39 01/02/20 17:39 01/02/20 17:39 01/02/20 17:39 Laboratory Results - last 24 hr 01/02/20 14:19: Urine Color Yellow, Urine Appearance Clear, Urine pH 6.0, Ur Specific [place] 1.010, Urine Protein 1+, Urine Glucose (UA) Trace, Urine Ketones Trace, Urine Blood Trace-i, Urine Nitrate Positive, Urine Bilirubin 2+ A, Urine Urobilinogen >=8.0, Ur Leukocyte Esterase 2+ A, Urine RBC 10-20, Urine WBC 5-10, Ur Squamous Epith Cells 3-5, Urine Bacteria 1+ 01/02/20 14:25: WBC 3.0 L, RBC 3.78 L, Hgb 9.1 L, Hct 28.9 L, MCV 76.4 L, MCH 24.2 L, MCHC 31.6 L, RDW 16.1, Plt Count 73 L, MPV 9.4, Neut % (Auto) 79.3, Lymph % (Auto) 15.2, [place] % (Auto) 5.0, Eos % (Auto) 0.3, Baso % (Auto) 0.3, Neut # (Auto) 2.4, Lymph # (Auto) 0.5 L, [place] # (Auto) 0.2, Eos # (Auto) 0.0, Baso # (Auto) 0.0 01/02/20 14:25: Sodium 129 L, Potassium 3.2 L, Chloride 97 L, Carbon Dioxide 23, Anion Gap 12.2, BUN 12, Creatinine 0.90, Estimated Creat Clear 65, Estimated GFR 64, Est GFR ( Amer) 77, Glucose 106 H, Calcium 9.2, Total Bilirubin 1.2, AST 32, ALT 19, Alkaline Phosphatase 130 H, Troponin I < 0.01, Total Protein 8.2, Albumin 4.0, Globulin 4.2 H, Albumin/Globulin Ratio 1.0 L, Lipase 82 01/02/20 14:25: Lactate 1.7 01/02/20 14:25: PT 12.4 H, INR 1.13 H, APTT 28.6 01/02/20 14:25: Ammonia < 9 L 01/02/20 14:25: SARS-CoV-2 IgG Ab (Rapid) Negative, SARS-CoV-2 IgM Ab (Rapid) Negative I & O for Last 24 hours: Intake & Output 12/31/19 01/01/20 01/02/20 01/03/20 11:59 11:59 11:59 11:59 Intake Total 1999 Balance 1999 Weight 296
[2020-01-02 18:09] LABS: Troponin I < 0.01 ng/ml (0.00-0.034)
[2020-01-02 21:21] LABS: Troponin I < 0.01 ng/ml (0.00-0.034)
[2020-01-03 04:00] VITALS: BP 113/57; PULSE 67; RESP 16; TEMP 36.8; O2SAT 100
[2020-01-03 05:00] VITALS: BMI 22.4
[2020-01-03 06:28] LABS: Basophils % 0.4 % (0.1-2.0); Eosinophils % 1.7 % (0.1-12.0); Hematocrit 26.1 % (37.0-47.0); Lymphocytes # 0.3 K/mm3 (0.7-4.5); Lymphocytes % 18.8 % (10-50); Mean Corpuscular HGB Conc 30.8 g/dL (31.8-35.4); Mean Corpuscular Hemoglobin 24.5 pg (27.0-31.2); Mean Corpuscular Volume 79.3 fl (81-99); Monocytes # 0.1 K/mm3 (0.1-1.0); Monocytes % 6.4 % (1.7-9.3); Neutrophils # 1.1 K/mm3 (1.8-7.8); Neutrophils % 72.7 % (37.0-80.0); Platelet Count 64 K/mm3 (142-424); Red Blood Count 3.29 M/mm3 (4.20-5.40); Red Cell Distribution Width 16.5 % (11.5-17.5)
[2020-01-03 06:35] LABS: Chloride 107 mmol/L (98-107); Sodium 136 mmol/L (136-145)
[2020-01-03 06:37] LABS: Blood Urea Nitrogen 11 mg/dl (7-17); Creatinine Clearance Estimated 96 mL/min (50-200); Estimated Glomerular Filt Rate 102 ml/min (>60); GFR (African American) 123 ML/MIN (>60)
[2020-01-03 06:38] LABS: Albumin/Globulin Ratio 0.9 (1.1-1.8); Alkaline Phosphatase 99 U/L (38-126); Anion Gap 9.2 mEq/L (5-15); Aspartate Amino Transferase 25 U/L (14-36); Bilirubin,Total 0.6 mg/dl (0.2-1.3); Carbon Dioxide 23 mmol/L (22.0-30.0); Globulin 3.5 g/dL (1.3-3.2); Total Protein,Serum 6.5 g/dl (6.3-8.2)
[2020-01-03 07:37] LABS: Hemoglobin 8.1 g/dL (12.2-16.2); White Blood Count 1.5 K/mm3 (4.8-10.8)
[2020-01-03 07:47] LABS: Alanine Aminotransferase 11 U/L (12-78); Glucose 80 mg/dl (74-100)
[2020-01-03 07:48] LABS: Calcium 8.1 mg/dl (8.4-10.2); Potassium 3.2 mmoL/L (3.5-5.1)
[2020-01-03 08:00] VITALS: BP 112/61; PULSE 76; RESP 20; TEMP 36.9; O2SAT 100
--- NOTE | 2020-01-03 08:31 | HMH.PHAINT ---
home medication list clarified with [facility]
--- NOTE | 2020-01-03 08:56 | HMH.ACPN2 ---
Internal Medicine - PN: Subj *Date: 01/03/20 *Time: 08:00 Interval history: Ms. Brothers feels significantly better this morning. Still having some back pain but improved. Afebrile overnight. Denies chest pain, shortness of breath, nausea, vomiting. Urine culture growing E. coli, obtained in ER on Monday. Patient interactive and pleasant on interview. Exam Vital signs and Labs for Last 24 Hours: Temp Pulse Resp BP Pulse Ox 98.5 F 76 20 112/61 100 01/03/20 08:00 01/03/20 08:00 01/03/20 08:00 01/03/20 08:00 01/03/20 08:00 Laboratory Results - last 24 hr 01/02/20 14:19: Urine Color Yellow, Urine Appearance Clear, Urine pH 6.0, Ur Specific [place] 1.010, Urine Protein 1+, Urine Glucose (UA) Trace, Urine Ketones Trace, Urine Blood Trace-i, Urine Nitrate Positive, Urine Bilirubin 2+ A, Urine Urobilinogen >=8.0, Ur Leukocyte Esterase 2+ A, Urine RBC 10-20, Urine WBC 5-10, Ur Squamous Epith Cells 3-5, Urine Bacteria 1+ 01/02/20 14:25: WBC 3.0 L, RBC 3.78 L, Hgb 9.1 L, Hct 28.9 L, MCV 76.4 L, MCH 24.2 L, MCHC 31.6 L, RDW 16.1, Plt Count 73 L, MPV 9.4, Neut % (Auto) 79.3, Lymph % (Auto) 15.2, [place] % (Auto) 5.0, Eos % (Auto) 0.3, Baso % (Auto) 0.3, Neut # (Auto) 2.4, Lymph # (Auto) 0.5 L, [place] # (Auto) 0.2, Eos # (Auto) 0.0, Baso # (Auto) 0.0 01/02/20 14:25: Sodium 129 L, Potassium 3.2 L, Chloride 97 L, Carbon Dioxide 23, Anion Gap 12.2, BUN 12, Creatinine 0.90, Estimated Creat Clear 65, Estimated GFR 64, Est GFR ( Amer) 77, Glucose 106 H, Calcium 9.2, Total Bilirubin 1.2, AST 32, ALT 19, Alkaline Phosphatase 130 H, Troponin I < 0.01, Total Protein 8.2, Albumin 4.0, Globulin 4.2 H, Albumin/Globulin Ratio 1.0 L, Lipase 82 01/02/20 14:25: Lactate 1.7 01/02/20 14:25: PT 12.4 H, INR 1.13 H, APTT 28.6 01/02/20 14:25: Ammonia < 9 L 01/02/20 14:25: SARS-CoV-2 IgG Ab (Rapid) Negative, SARS-CoV-2 IgM Ab (Rapid) Negative 01/02/20 17:33: Troponin I < 0.01 01/02/20 20:15: Troponin I < 0.01 01/03/20 05:56: WBC 1.5 L* D, RBC 3.29 L, Hgb 8.1 L D, Hct 26.1 L, MCV 79.3 L, MCH 24.5 L, MCHC 30.8 L, RDW 16.5, Plt Count 64 L, MPV 9.0, Neut % (Auto) 72.7, Lymph % (Auto) 18.8, [place] % (Auto) 6.4, Eos % (Auto) 1.7, Baso % (Auto) 0.4, Neut # (Auto) 1.1 L, Lymph # (Auto) 0.3 L, [place] # (Auto) 0.1, Eos # (Auto) 0.0, Baso # (Auto) 0.0 01/03/20 05:56: Sodium 136, Potassium 3.2 L, Chloride 107, Carbon Dioxide 23, Anion Gap 9.2, BUN 11, Creatinine 0.60 D, Estimated Creat Clear 96, Estimated GFR 102, Est GFR ( Amer) 123 D, Glucose 80 D, Calcium 8.1 L D, Total Bilirubin 0.6, AST 25, ALT 11 L D, Alkaline Phosphatase 99, Total Protein 6.5, Albumin 3.0 L D, Globulin 3.5 H, Albumin/Globulin Ratio 0.9 L I & O for Last 24 hours: Intake & Output 12/31/19 01/01/20 01/02/20 01/03/20 23:59 23:59 23:59 23:59 Intake Total 2099 480 / 480 Balance 2099 480 / 480 Weight 60.923 kg 61.144 kg - Constitutional no acute distress, thin - *Routine HEENT Exam Head: Present: normocephalic Eye: Present: EOMI, PERRL ENT: Present: mucous membranes moist - *Routine Neck Exam Present: supple. Absent: lymphadenopathy - *Routine Respiratory Exam Present: CTA bilaterally - *Routine Cardiovascular Exam Present: RRR - *Routine Abdominal Exam Present: soft, normoactive bowel sounds. Absent: tenderness - *Routine Extremities Exam Absent: cyanosis, clubbing, edema - Routine Back/Spine/Pelvis Exam Back/Spine: Absent: CVA tenderness - *Routine Skin Exam Present: warm. Absent: rash - *Routine Neurological Exam Present: alert, oriented X3 Assessment and Plan (1) Sepsis Status: Acute Qualifiers: Sepsis type: Escherichia coli Sepsis acute organ dysfunction status: without acute organ dysfunction Qualified Code(s): A41.51 - Sepsis due to Escherichia coli [E. coli] Category: Medical Code(s): A41.9 - Sepsis, unspecified organism (2) Anemia Status: Acute Qualifiers: Anemia type: other cause Other cause
[2020-01-03 15:34] VITALS: BP 102/56; PULSE 63; RESP 18; TEMP 36.8; O2SAT 98
--- NOTE | 2020-01-03 16:45 | PC.NURSE ---
PT IS RESTING IN BED. PT STATES SHE JUST HAS SOME MILD PAIN IN HER LOWER BACK. ALERT AND ORIENTED X4. LUNG SOUNDS CLEAR. ABDOMEN SOFT/NON TENDER. VSS. PT HAS BEEN UP AMBULATING TO THE BATHROOM. WILL CONTINUE TO MONITOR.
[2020-01-03 20:00] VITALS: O2SAT 96
[2020-01-03 20:15] VITALS: BP 111/62; PULSE 79; RESP 19; TEMP 37.4; O2SAT 96
[2020-01-04] VITALS (24 sets, daily range): BP systolic 102–138; BP diastolic 55–89; PULSE 63–83; RESP 17–18; TEMP 36.7–37.8; O2SAT 96–99; BMI 23.1
--- NOTE | 2020-01-04 00:08 | PC.NURSE ---
She is A&Ox3. She reports that she has not slept well despite the fact that it looks like she is sleeping. She stated she has been resting with her eyes closed. She received PRN pain medication for back pain of which she rated a 10/10. She reports 3 BM of diarrhea today. MD fashion photographer stated he did not want a diarrhea panel. She continues in neutropenic precautions r/t WBC 1.5.
[2020-01-04 07:06] LABS: Basophils % 0.6 % (0.1-2.0); Eosinophils % 3.2 % (0.1-12.0); Hematocrit 24.1 % (37.0-47.0); Lymphocytes # 0.5 K/mm3 (0.7-4.5); Mean Corpuscular HGB Conc 31.4 g/dL (31.8-35.4); Mean Corpuscular Hemoglobin 24.6 pg (27.0-31.2); Mean Corpuscular Volume 78.3 fl (81-99); Mean Platelet Volume 9.9 fl (7.4-10.4); Monocytes # 0.1 K/mm3 (0.1-1.0); Monocytes % 5.9 % (1.7-9.3); Neutrophils # 0.8 K/mm3 (1.8-7.8); Neutrophils % 58.2 % (37.0-80.0); Platelet Count 59 K/mm3 (142-424); Red Blood Count 3.08 M/mm3 (4.20-5.40); Red Cell Distribution Width 16.2 % (11.5-17.5); White Blood Count 1.4 K/mm3 (4.8-10.8)
[2020-01-04 07:11] LABS: Hemoglobin 7.6 g/dL (12.2-16.2)
[2020-01-04 07:13] LABS: Chloride 104 mmol/L (98-107); Sodium 132 mmol/L (136-145)
[2020-01-04 07:15] LABS: Blood Urea Nitrogen 7 mg/dl (7-17); Creatinine Clearance Estimated 99 mL/min (50-200); Estimated Glomerular Filt Rate 102 ml/min (>60); GFR (African American) 123 ML/MIN (>60)
[2020-01-04 07:16] LABS: Alanine Aminotransferase 10 U/L (12-78); Albumin Level 2.8 g/dl (3.5-5.0); Albumin/Globulin Ratio 0.8 (1.1-1.8); Alkaline Phosphatase 94 U/L (38-126); Aspartate Amino Transferase 26 U/L (14-36); Bilirubin,Total 0.5 mg/dl (0.2-1.3); Calcium 7.9 mg/dl (8.4-10.2); Carbon Dioxide 23 mmol/L (22.0-30.0); Globulin 3.5 g/dL (1.3-3.2); Glucose 82 mg/dl (74-100); Magnesium 1.8 mg/dl (1.6-2.3); Total Protein,Serum 6.3 g/dl (6.3-8.2)
--- NOTE | 2020-01-04 08:11 | P.PN_ITS ---
Internal Medicine - PN: Subj *Date: 01/04/20 *Time: 08:11 Interval history: Patient had no fevers, back pain is better, she feels extremely fatigued. Exam Vital signs and Labs for Last 24 Hours: Temp Pulse Resp BP Pulse Ox 98.5 F 63 18 138/89 99 01/04/20 08:00 01/04/20 08:00 01/04/20 08:00 01/04/20 08:00 01/04/20 08:00 Laboratory Results - last 24 hr 01/04/20 06:51: WBC 1.4 L*, RBC 3.08 L, Hgb 7.6 L*, Hct 24.1 L, MCV 78.3 L, MCH 24.6 L, MCHC 31.4 L, RDW 16.2, Plt Count 59 L, MPV 9.9, Neut % (Auto) 58.2, Lymph % (Auto) 32.0, [place] % (Auto) 5.9, Eos % (Auto) 3.2, Baso % (Auto) 0.6, Neut # (Auto) 0.8 L*, Lymph # (Auto) 0.5 L, [place] # (Auto) 0.1, Eos # (Auto) 0.0, Baso # (Auto) 0.0 01/04/20 06:51: Sodium 132 L, Potassium 3.0 L, Chloride 104, Carbon Dioxide 23, Anion Gap 8.0, BUN 7 D, Creatinine 0.60, Estimated Creat Clear 99, Estimated GFR 102, Est GFR ( Amer) 123, Glucose 82, Calcium 7.9 L, Magnesium 1.8, Total Bilirubin 0.5, AST 26, ALT 10 L, Alkaline Phosphatase 94, Total Protein 6.3, Albumin 2.8 L, Globulin 3.5 H, Albumin/Globulin Ratio 0.8 L I & O for Last 24 hours: Intake & Output 01/01/20 01/02/20 01/03/20 01/04/20 11:59 11:59 11:59 11:59 Intake Total 2580 / 2580 1370 / 1370 Output Total 500 / 500 Balance 2580 / 2580 870 / 870 Weight 134 lb 12.8 oz 138 lb 8 oz Microbiology Reports for the Last 24 Hours: Microbiology 01/02/20 14:19 Urine,Clean Catch Urine Culture - Preliminary Narrative: Pleasant, alert, oriented. Lungs clear, heart rate regular. No CVA tenderness. Neurologic exam intact. Oropharynx mucosa moist but pale. Sclera pale. Abdomen soft and nontender. Assessment and Plan (1) Sepsis Status: Acute Qualifiers: Sepsis type: Escherichia coli Sepsis acute organ dysfunction status: without acute organ dysfunction Qualified Code(s): A41.51 - Sepsis due to Escherichia coli [E. coli] Category: Medical Code(s): A41.9 - Sepsis, unspecified organism Overall improving. Continue current antibiotics. Switch to p.o. tomorrow with hopeful discharge (2) Anemia Status: Acute Qualifiers: Anemia type: other cause Other causes of anemia: other cause, not classified Qualified Code(s): D64.89 - Other specified anemias Category: Medical Code(s): D64.9 - Anemia, unspecified Given her history of autoimmune anemia and pancytopenia patient needs 2 units of packed cells today, combination of infectious complication and hemodilution. (3) Pyelonephritis Status: Acute Category: Medical Code(s): N12 - Tubulo-interstitial nephritis, not specified as acute or chronic (4) Thrombocytopenia Status: Acute Category: Medical Code(s): D69.6 - Thrombocytopenia, unspecified (5) Cirrhosis Status: Chronic Category: Medical Code(s): K74.60 - Unspecified cirrhosis of liver (6) Leukopenia Status: Acute Qualifiers: Leukopenia type: other Qualified Code(s): D72.818 - Other decreased white blood cell count Category: Medical Code(s): D72.819 - Decreased white blood cell count, unspecified
--- NOTE | 2020-01-04 16:38 | PC.NURSE ---
PT AO*4, DENIES DIZZINESS AND SOA, TWO UNITS RBCS INFUSED THIS SHIFT, NO COMPLICATINS NOTED, TOLERATED WELL, PT DENIES N/V/D, AMBULATES TOLERATED TO RESTROOM, TOLERATING RA WELL, LUNG SOUNDS CLEAR, MEDICATED*1 WITH PRN MORPHINE PER MAR, ADEQUATE PAIN CONTROL ACHIEVED, PT ROLERATED DIET WELL, ATE NEARLY ALL OF HER THREE MEALS, NO NEEDS AT THIS TIME WILL CONTINUE TO MONITOR
[2020-01-04 16:50] LABS: Hemoglobin 9.7 g/dL (12.2-16.2)
--- NOTE | 2020-01-04 22:03 | PC.NURSE ---
She is A&Ox4. She received PRN pain medication for back pain that she rated 10/10. She refused TEDS. Denies nausea, vomiting, and diarrhea. States he last BM was on 01/04/20. She continues on RA. Continues in neutropenic precautions r/t WBC 1.4. She reports that she ambulates independently.
--- NOTE | 2020-01-05 03:35 | PC.NURSE ---
no changes since prior assessment or note
[2020-01-05 04:00] VITALS: BP 115/64; PULSE 72; RESP 18; TEMP 36.6; O2SAT 94
[2020-01-05 05:00] VITALS: BMI 22.8
[2020-01-05 06:16] LABS: Lymphocytes # 0.3 K/mm3 (0.7-4.5); Monocytes # 0.1 K/mm3 (0.1-1.0); Neutrophils # 0.7 K/mm3 (1.8-7.8); White Blood Count 1.1 K/mm3 (4.8-10.8)
[2020-01-05 06:18] LABS: Chloride 105 mmol/L (98-107); Potassium 3.4 mmoL/L (3.5-5.1); Sodium 134 mmol/L (136-145)
[2020-01-05 06:21] LABS: Blood Urea Nitrogen 6 mg/dl (7-17); Creatinine Clearance Estimated 119 mL/min (50-200); Estimated Glomerular Filt Rate 126 ml/min (>60); GFR (African American) 152 ML/MIN (>60)
[2020-01-05 06:22] LABS: Anion Gap 9.4 mEq/L (5-15); Basophils % 0.1 % (0.1-2.0); Calcium 8.3 mg/dl (8.4-10.2); Carbon Dioxide 23 mmol/L (22.0-30.0); Glucose 83 mg/dl (74-100); Lymphocytes % 29.3 % (10-50); Mean Corpuscular HGB Conc 34.9 g/dL (31.8-35.4); Mean Corpuscular Hemoglobin 27.5 pg (27.0-31.2); Mean Corpuscular Volume 78.8 fl (81-99); Mean Platelet Volume 9.2 fl (7.4-10.4); Monocytes % 7.4 % (1.7-9.3); Neutrophils % 61.2 % (37.0-80.0); Red Blood Count 2.98 M/mm3 (4.20-5.40); Red Cell Distribution Width 16.3 % (11.5-17.5)
[2020-01-05 06:24] LABS: Hemoglobin 8.2 g/dL (12.2-16.2)
[2020-01-05 06:25] LABS: Hematocrit 23.5 % (37.0-47.0); Platelet Count 50 K/mm3 (142-424)
[2020-01-05 08:00] VITALS: BP 112/65; PULSE 77; RESP 18; RESP 20; TEMP 36.8; O2SAT 96; O2SAT 97
--- NOTE | 2020-01-05 08:02 | HMH.ACPN2 ---
Internal Medicine - PN: Subj *Date: 01/05/20 *Time: 08:02 Interval history: Patient feels better than yesterday but still feels very fatigued, denies fevers, reports that her back pain is improving. Labs from this morning reviewed in detail with patient. Exam Vital signs and Labs for Last 24 Hours: Temp Pulse Resp BP Pulse Ox 97.8 F 72 18 115/64 94 L 01/05/20 04:00 01/05/20 04:00 01/05/20 04:00 01/05/20 04:00 01/05/20 04:00 Laboratory Results - last 24 hr 01/04/20 09:00: Blood Type A Positive, Antibody Screen Negative, Crossmatch (AHG) See Detail 01/04/20 16:30: Hgb 9.7 L D, Hct 30.0 L 01/05/20 05:45: WBC 1.1 L*, RBC 2.98 L, Hgb 8.2 L D, Hct 23.5 L*, MCV 78.8 L, MCH 27.5, MCHC 34.9, RDW 16.3, Plt Count 50 L, MPV 9.2, Neut % (Auto) 61.2, Lymph % (Auto) 29.3, [place] % (Auto) 7.4, Eos % (Auto) 2.0, Baso % (Auto) 0.1, Neut # (Auto) 0.7 L*, Lymph # (Auto) 0.3 L, [place] # (Auto) 0.1, Eos # (Auto) 0.0, Baso # (Auto) 0.0 01/05/20 05:45: Sodium 134 L, Potassium 3.4 L, Chloride 105, Carbon Dioxide 23, Anion Gap 9.4, BUN 6 L, Creatinine 0.50 L, Estimated Creat Clear 119, Estimated GFR 126, Est GFR ( Amer) 152 D, Glucose 83, Calcium 8.3 L I & O for Last 24 hours: Intake & Output 01/02/20 01/03/20 01/04/20 01/05/20 11:59 11:59 11:59 11:59 Intake Total 2580 / 2580 1370 / 1370 2709 / 2709 Output Total 500 / 500 Balance 2580 / 2580 870 / 870 2709 / 2709 Weight 134 lb 12.8 oz 138 lb 8 oz 137 lb 1 oz Microbiology Reports for the Last 24 Hours: Microbiology 01/02/20 14:19 Urine,Clean Catch Urine Culture - Preliminary Gram Positive Cocci 01/02/20 14:25 Blood Blood Culture - Preliminary NO GROWTH AFTER 48 HOURS 01/02/20 14:25 Blood Blood Culture - Preliminary NO GROWTH AFTER 48 HOURS Narrative: Patient appears more talkative and a little bit more energetic but still appears chronically and acutely ill but not toxic. Lungs are clear, better air entry. No CVA tenderness today. Abdomen soft, minimal left flank pain but improving. Heart rate regular. Neurologic exam nonfocal. Oropharynx clear. No evidence of skin rash or petechiae. Assessment and Plan (1) Sepsis Status: Acute Qualifiers: Sepsis type: Escherichia coli Sepsis acute organ dysfunction status: without acute organ dysfunction Qualified Code(s): A41.51 - Sepsis due to Escherichia coli [E. coli] Category: Medical Code(s): A41.9 - Sepsis, unspecified organism (2) Anemia Status: Acute Qualifiers: Anemia type: other cause Other causes of anemia: other cause, not classified Qualified Code(s): D64.89 - Other specified anemias Category: Medical Code(s): D64.9 - Anemia, unspecified Anemia secondary to chronic iron deficiency secondary to poor absorption from her multiple GI issues and liver cirrhosis. Pancytopenia is also attributed to this according to most recent hematology note. Her blood counts have responded to transfusion but white count and platelet count are somewhat low, I think from the pressure of the infection and her acute illness. Plan for some Solu-Medrol today to see if this helps her counts tomorrow and helps her feel better secondary to physiologic stress. Continue current IV antibiotics. (3) Pyelonephritis Status: Acute Category: Medical Code(s): N12 - Tubulo-interstitial nephritis, not specified as acute or chronic (4) Thrombocytopenia Status: Acute Category: Medical Code(s): D69.6 - Thrombocytopenia, unspecified (5) Cirrhosis Status: Chronic Category: Medical Code(s): K74.60 - Unspecified cirrhosis of liver (6) Leukopenia Status: Acute Qualifiers: Leukopenia type: other Qualified Code(s): D72.818 - Other decreased white blood cell count Category: Medical Code(s): D72.819 - Decreased white blood cell count, unspecified
[2020-01-05 16:00] VITALS: BP 122/66; PULSE 68; RESP 17; TEMP 36.9; O2SAT 96
--- NOTE | 2020-01-05 17:13 | PC.NURSE ---
SHE IS AO*4, DENIES PAIN, DENIES SOA, NO N.V.D, HAS TOLERATED DIET WELL, TOLERATES AMBULATION TO BATHROOM WELL, ON ROOM AIR, HAS RESTED FOR MOST OF SHIFT BUT DOES AMBULATE FREQUENTLY, STATES THAT SHE FEELS BETTER, NO NEEDS AT THIS TIME, WILL CONTINUE TO MONITOR.
[2020-01-05 19:54] VITALS: BP 126/71; PULSE 75; RESP 18; TEMP 36.4; O2SAT 99
--- NOTE | 2020-01-06 02:38 | PC.NURSE ---
Pt is alert and oriented x4. No acute changes noted from previous shift. Pt rested well with eyes closed t/o shift with no complaints. Denies pain when asked by this RN. Tolerated RA well with no c/o SOA. Bilateral breath sounds noted clear t/o upon auscultation. Abdomen noted soft and non-tender upon palpation. No edema noted. Refused TEDS. Tolerated independent ambulation well in room. Adequate urine output noted. Urine noted clear and bright yellow in color. VSS. Remains safe. Call light within reach. Will continue to monitor.
[2020-01-06 03:49] VITALS: BP 125/69; PULSE 55; RESP 18; TEMP 36.4; O2SAT 95
[2020-01-06 05:00] VITALS: BMI 22.6
[2020-01-06 07:03] LABS: Basophils % 0.1 % (0.1-2.0); Eosinophils % 0.5 % (0.1-12.0); Hematocrit 34.2 % (37.0-47.0); Hemoglobin 10.8 g/dL (12.2-16.2); Lymphocytes # 0.3 K/mm3 (0.7-4.5); Lymphocytes % 12.5 % (10-50); Mean Corpuscular HGB Conc 31.7 g/dL (31.8-35.4); Mean Corpuscular Hemoglobin 25.4 pg (27.0-31.2); Mean Corpuscular Volume 80.4 fl (81-99); Mean Platelet Volume 9.6 fl (7.4-10.4); Monocytes % 1.8 % (1.7-9.3); Neutrophils % 85.1 % (37.0-80.0); Platelet Count 71 K/mm3 (142-424); Red Blood Count 4.26 M/mm3 (4.20-5.40); Red Cell Distribution Width 16.4 % (11.5-17.5); White Blood Count 2.4 K/mm3 (4.8-10.8)
[2020-01-06 07:07] LABS: MANUAL DIFFERENTIAL MANUAL DIFFERENTIAL (MANUAL DIFF)
[2020-01-06 07:11] LABS: Chloride 106 mmol/L (98-107); Sodium 135 mmol/L (136-145)
[2020-01-06 07:14] LABS: Alanine Aminotransferase 15 U/L (12-78); Albumin Level 3.3 g/dl (3.5-5.0); Albumin/Globulin Ratio 0.9 (1.1-1.8); Alkaline Phosphatase 121 U/L (38-126); Aspartate Amino Transferase 30 U/L (14-36); Bilirubin,Total 0.6 mg/dl (0.2-1.3); Blood Urea Nitrogen 8 mg/dl (7-17); Calcium 8.8 mg/dl (8.4-10.2); Carbon Dioxide 24 mmol/L (22.0-30.0); Creatinine Clearance Estimated 117 mL/min (50-200); Estimated Glomerular Filt Rate 126 ml/min (>60); GFR (African American) 152 ML/MIN (>60); Globulin 3.8 g/dL (1.3-3.2); Glucose 150 mg/dl (74-100); Total Protein,Serum 7.1 g/dl (6.3-8.2)
[2020-01-06 07:53] VITALS: BP 110/57; PULSE 80; RESP 18; TEMP 36.6; O2SAT 95
--- NOTE | 2020-01-06 08:33 | HMH.DCSUM ---
General - General Admission date:: 01/02/20 Discharge date: 01/06/20 HPI HPI: 59-year-old white female with history of nonalcoholic cirrhosis and chronic anemia secondary to multiple medical problems who came to the emergency department 2 days ago, was diagnosed with mechanical back pain, and sent home with muscle relaxer. She failed to improve and was on the phone with one of my nurse practitioner colleagues this morning doing a telehealth visit and complained of fever, disorientation and chills. Sent to the emergency department. Found to have pyelonephritis, culture from 2 days ago has grown E. coli, pansensitive, she was given fluid boluses, ceftriaxone, felt much better and transferred to the floor. Hospital Course Hospital Course: Patient was admitted, initially improved with treatment for sepsis and her pyelonephritis. [place] somewhat tired and lethargic over the next couple of days, noted to have some pancytopenia. 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 This morning she feels much better, all cell lines have improved and she wishes to be discharged home. Plan will be to discharge home today with cefdinir for her pyelonephritis orally, 5 days of steroids to assist with her pancytopenia issues and then follow-up in office on with labs. Objective Vital signs: Temp Pulse Resp BP Pulse Ox 97.8 F 80 18 110/57 L 95 01/06/20 07:53 01/06/20 07:53 01/06/20 07:53 01/06/20 07:53 01/06/20 07:53 no acute distress, thin, chronically ill appearing - *Routine HEENT Exam Head: Present: normocephalic Eye: Present: EOMI, PERRL ENT: Present: mucous membranes moist - *Routine Neck Exam Present: supple - *Routine Respiratory Exam Present: CTA bilaterally - *Routine Cardiovascular Exam Present: RRR - *Routine Abdominal Exam Present: soft, normoactive bowel sounds. Absent: tenderness - *Routine Extremities Exam Absent: cyanosis, clubbing, edema - *Routine Skin Exam Present: warm. Absent: rash - Detailed Eye Exam Eyelids: Bilateral normal inspection Results Labs on day of discharge: Labs from last 24 hours 01/06/20 01/06/20 06:03 06:03 WBC 2.4 L D RBC 4.26 D Hgb 10.8 L Hct 34.2 L MCV 80.4 L MCH 25.4 L MCHC 31.7 L RDW 16.4 Plt Count 71 L D MPV 9.6 Neut % (Auto) 85.1 H Lymph % (Auto) 12.5 [place] % (Auto) 1.8 Eos % (Auto) 0.5 Baso % (Auto) 0.1 Neut # (Auto) 2.0 Lymph # (Auto) 0.3 L [place] # (Auto) 0.0 L Eos # (Auto) 0.0 Baso # (Auto) 0.0 Sodium 135 L Potassium 4.0 Chloride 106 Carbon Dioxide 24 Anion Gap 9.0 BUN 8 D Creatinine 0.50 L Estimated Creat Clear 117 Estimated GFR 126 Est GFR ( Amer) 152 Glucose 150 H Calcium 8.8 Total Bilirubin 0.6 AST 30 ALT 15 D Alkaline Phosphatase 121 Total Protein 7.1 Albumin 3.3 L Globulin 3.8 H Albumin/Globulin Ratio 0.9 L Preliminary micro results at discharge 01/02/20 14:19 Urine Culture - Preliminary Urine,Clean Catch Gram Positive Cocci 01/02/20 14:25 Blood Culture - Preliminary Blood NO GROWTH AFTER 48 HOURS 01/02/20 14:25 Blood Culture - Preliminary Blood NO GROWTH AFTER 48 HOURS DS: Diagnosis - Discharge Diagnosis (1) Sepsis Status: Resolved (2) Anemia Status: Chronic (3) Pyelonephritis Status: Resolved (4) Thrombocytopenia Status: Chronic (5) Cirrhosis Status: Chronic (6) Leukopenia Status: Chronic Discharge Plan - Patient Discharge Instructions ACTIVITY: Continue current activity DIET: continue same diet Patient Instructions: Kidney Infection, Cirrhosis, Escherichia coli Infection, Platelet Count, DI for Kidney Infection - Follow up Plan Follow up with: Gold Gongora MD [Primary Care Provider] - 01/09/20 Deedee Bains MD [Staff Physician] - 2 weeks Disposition: [place]
--- NOTE | 2020-01-06 08:37 | PC.NURSE ---
made aware that patient urine culture came back MRSA
--- NOTE | 2020-01-06 09:34 | HMH.PHAINT ---
DISCHARGE COUNSELING COMPLETED ON PATIENT. NEW PRESCRIPTIONS INCLUDE CEFDINIR AND PREDNISONE. BOTH OF THESE PRESCRIPTIONS WERE SENT TO [facility] IN [place]. PATIENT IS TO CONTINUE ALL OTHER HOME MEDICATIONS WITH THE EXCEPTION OF BACRIM, MEDROL, AND PYRIDIUM. PATIENT VERBALIZED UNDERSTANDING AND HAD NO QUESTIONS AT THIS TIME. -EMMA GONZALEZ, JEMIMAD
[2020-01-06 09:47] LABS: Lymphocytes % 6 % (10-50); Monocytes % 2 % (2-9); Neutrophils % 92 % (42-76); Platelet Estimate Slight Decrease; RBC Morphology Normal; Total Cells Counted 100
--- NOTE | 2020-01-06 09:50 | HMH.ACPN ---
Internal Medicine - PN: Subj *Date: 01/06/20 *Time: 09:50 Exam Vital signs and Labs for Last 24 Hours: Temp Pulse Resp BP Pulse Ox 97.8 F 80 18 110/57 L 95 01/06/20 07:53 01/06/20 07:53 01/06/20 07:53 01/06/20 07:53 01/06/20 07:53 Laboratory Results - last 24 hr 01/06/20 06:03: WBC 2.4 L D, RBC 4.26 D, Hgb 10.8 L, Hct 34.2 L, MCV 80.4 L, MCH 25.4 L, MCHC 31.7 L, RDW 16.4, Plt Count 71 L D, MPV 9.6, Neut % (Auto) 85.1 H, Lymph % (Auto) 12.5, [place] % (Auto) 1.8, Eos % (Auto) 0.5, Baso % (Auto) 0.1, Neut # (Auto) 2.0, Lymph # (Auto) 0.3 L, [place] # (Auto) 0.0 L, Eos # (Auto) 0.0, Baso # (Auto) 0.0, Total Counted 100, Neutrophils % (Manual) 92 H, Lymphocytes % (Manual) 6 L, Monocytes % (Manual) 2, Platelet Estimate Slight decrease, RBC Morphology Normal 01/06/20 06:03: Sodium 135 L, Potassium 4.0, Chloride 106, Carbon Dioxide 24, Anion Gap 9.0, BUN 8 D, Creatinine 0.50 L, Estimated Creat Clear 117, Estimated GFR 126, Est GFR ( Amer) 152, Glucose 150 H, Calcium 8.8, Total Bilirubin 0.6, AST 30, ALT 15 D, Alkaline Phosphatase 121, Total Protein 7.1, Albumin 3.3 L, Globulin 3.8 H, Albumin/Globulin Ratio 0.9 L I & O for Last 24 hours: Intake & Output 01/03/20 01/04/20 01/05/20 01/06/20 23:59 23:59 23:59 23:59 Intake Total 480 / 480 2440 / 2440 2879 / 3359 980 / 980 Output Total 500 / 500 1900 / 2500 925 / 925 Balance 480 / 480 1940 / 1940 979 / 859 55 / 55 Weight 61.144 kg 62.823 kg 62.171 kg 61.802 kg Microbiology Reports for the Last 24 Hours: Microbiology 01/02/20 14:19 Urine,Clean Catch Urine Culture - Preliminary Staphylococcus aureus Assessment and Plan (1) Sepsis Status: Resolved Qualifiers: Sepsis type: Escherichia coli Sepsis acute organ dysfunction status: without acute organ dysfunction Qualified Code(s): A41.51 - Sepsis due to Escherichia coli [E. coli] Category: Medical Code(s): A41.9 - Sepsis, unspecified organism (2) Anemia Status: Chronic Qualifiers: Anemia type: other cause Other causes of anemia: other cause, not classified Qualified Code(s): D64.89 - Other specified anemias Category: Medical Code(s): D64.9 - Anemia, unspecified (3) Pyelonephritis Status: Resolved Category: Medical Code(s): N12 - Tubulo-interstitial nephritis, not specified as acute or chronic (4) Thrombocytopenia Status: Chronic Category: Medical Code(s): D69.6 - Thrombocytopenia, unspecified (5) Cirrhosis Status: Chronic Category: Medical Code(s): K74.60 - Unspecified cirrhosis of liver (6) Leukopenia Status: Chronic Qualifiers: Leukopenia type: other Qualified Code(s): D72.818 - Other decreased white blood cell count Category: Medical Code(s): D72.819 - Decreased white blood cell count, unspecified The patient's infection will respond to the chosen ABx?: Yes Is the patient receiving the right drug, dose, and route?: Yes Could a more targeted ABx be ordered?: No (PT DISCHARGED ON PO CEFDINIR, URINE CULTURE CONSIDERED CONTAMINANT BY PCP)
--- NOTE | 2020-01-31 12:47 | PC.NURSE ---
VERIFICATION FOR BLOOD TRANSFUSION 01/04/2020, [facility] ROOM 213, VERIFICATION TIMED OUT DURING DOWNTIME PERIOD, BLOOD PRODUCT VERIFIED WITH LARRY BUCHANAN RN, START TIME: 1050 END TIME: 1255 VTBI: 230 ML
== END 2020-01-06 10:03 | disposition home or self-care (01) ==
LOC: ER 14:10 → 2ND 16:10
PROVIDERS: Internal Medicine Adolescent Medicine; Admitting Provider Internal Medicine Adolescent Medicine; Emergency Provider Emergency Medicine; PCP Internal Medicine Adolescent Medicine; Visit Provider Internal Medicine Adolescent Medicine
DX: D64.89 Other specified anemias (principal); N12 Tubulo-interstitial nephritis, not specified as acute or chronic; A41.9 Sepsis, unspecified organism; D69.6 Thrombocytopenia, unspecified; K74.60 Unspecified cirrhosis of liver
CPT/HCPCS: 36430; 36415; 71045; 74177; 80048; 80053; 81001; 82140; 83605; 83690; 83735; 84484; 85007; 85014; 85018; 85025; 85610; 85730; 86328; 86850; 87040; 87086; 87088; 87186; 96365; 96366; 96367; 99284; G0378; P9016; Q9967

== ENCOUNTER → 2020-01-23 13:34 | Outpatient (CLI) | payer OTHER, SELFPAY ==
[2020-01-23 14:22] LABS: Basophils % 0.7 % (0.1-2.0); Eosinophils # 0.1 K/mm3 (0.0-0.4); Hematocrit 36.7 % (37.0-47.0); Hemoglobin 11.9 g/dL (12.2-16.2); Lymphocytes # 0.6 K/mm3 (0.7-4.5); Lymphocytes % 24.1 % (10-50); Mean Corpuscular HGB Conc 32.5 g/dL (31.8-35.4); Mean Corpuscular Hemoglobin 26.1 pg (27.0-31.2); Mean Corpuscular Volume 80.2 fl (81-99); Mean Platelet Volume 8.1 fl (7.4-10.4); Monocytes # 0.1 K/mm3 (0.1-1.0); Monocytes % 3.2 % (1.7-9.3); Neutrophils # 1.7 K/mm3 (1.8-7.8); Platelet Count 93 K/mm3 (142-424); Red Blood Count 4.57 M/mm3 (4.20-5.40); Red Cell Distribution Width 17.3 % (11.5-17.5); White Blood Count 2.4 K/mm3 (4.8-10.8)
[2020-01-23 15:45] LABS: Iron 49 ug/dL (37-170)
[2020-01-23 15:56] LABS: Total Iron Binding Capacity 355 ug/dL (265-497)
[2020-01-23 16:20] LABS: Ferritin 90.6 ng/ml (11.1-264)
== END ==
PROVIDERS: Visit Provider Internal Medicine Medical Oncology
DX: D50.9 Iron deficiency anemia, unspecified (principal)
CPT/HCPCS: 36415; 82728; 83540; 83550; 85025

== ENCOUNTER 2020-01-29 14:49 | Outpatient (CLI) | payer OTHER, SELFPAY ==
[2020-01-29 14:53] VITALS: BP 125/87; PULSE 88; RESP 18; TEMP 36.2; O2SAT 99
[2020-01-29 15:45] VITALS: BP 132/75; PULSE 91; RESP 18; O2SAT 99
== END 2020-01-29 15:52 | disposition home or self-care (01) ==
LOC: INF 14:49
PROVIDERS: Visit Provider Internal Medicine Medical Oncology
DX: D50.9 Iron deficiency anemia, unspecified (principal)
CPT/HCPCS: 96365; J1439

== ENCOUNTER → 2020-03-16 15:00 | Outpatient (CLI) | payer OTHER, SELFPAY ==
--- NOTE | 2020-03-16 15:12 | XR_ITS ---
PROCEDURE: XR SACROILIAC JOINT BI MIN 3V CLINICAL INDICATION: SACROCOCCYGEAL DISORDERS,LT HIP PAIN,LOW BACK PAIN COMPARISON: No exams were available for comparison FINDINGS: No fracture or dislocation. No lytic or blastic change. There is normal mineralization. The joint spaces are well-preserved. No significant degenerative/arthritic changes. No erosive changes evident. Other findings:None. IMPRESSION: Negative SI joints Dictated by: Kiel Gaffney MD 03/16/2020 16:15 Kiel Gaffney MD in [facility] 03/16/2020 16:15
--- NOTE | 2020-03-16 15:12 | XR_ITS ---
PROCEDURE: XR LUMBAR SPINE MIN 4V CLINICAL INDICATION: SACROCOCCYGEAL DISORDERS,LT HIP PAIN,LOW BACK PAIN COMPARISON: CR XR LUMBAR SPINE 2-3V from 12/31/2019 FINDINGS: Chronic wedge compression changes involves the L3 vertebral body with loss of height anteriorly of approximately 30 percent. There is degenerative disc disease at L2-L3. No acute fracture or dislocation evident. No lytic or blastic change. IMPRESSION: Degenerative disc disease at L2-L3 with chronic wedge compression changes at L3. Dictated by: Kiel Gaffney MD 03/16/2020 16:03 Kiel Gaffney MD in [facility] 03/16/2020 16:03
--- NOTE | 2020-03-16 15:12 | XR_ITS ---
PROCEDURE: XR HIP RT 2-3V W/PELVIS CLINICAL INDICATION: SACROCOCCYGEAL DISORDERS,LT HIP PAIN,LOW BACK PAIN COMPARISON: No exams were available for comparison FINDINGS: No fracture or dislocation is evident. No significant degenerative change. No lytic or blastic change. Unremarkable soft tissues. IMPRESSION: Negative right hip Dictated by: Kiel Gaffney MD 03/16/2020 16:13 Kiel Gaffney MD in [facility] 03/16/2020 16:13
--- NOTE | 2020-03-16 15:12 | XR_ITS ---
PROCEDURE: XR HIP LT 2-3V W/PELVIS CLINICAL INDICATION: SACROCOCCYGEAL DISORDERS,LT HIP PAIN,LOW BACK PAIN COMPARISON: CR XR HIP RT 2-3V W/PELVIS from 03/16/2020 FINDINGS: No fracture or dislocation. No lytic or blastic change. There is slight decrease in the left hip joint space suggesting minimal osteoarthritic change. IMPRESSION: Minimal osteoarthritis of the left hip Dictated by: Kiel Gaffney MD 03/16/2020 16:14 Kiel Gaffney MD in [facility] 03/16/2020 16:14
[2020-03-16 15:23] LABS: Basophils % 0.3 % (0.1-2.0); Eosinophils # 0.1 K/mm3 (0.0-0.4); Eosinophils % 1.3 % (0.1-12.0); Hematocrit 33.1 % (37.0-47.0); Hemoglobin 10.6 g/dL (12.2-16.2); Lymphocytes # 0.7 K/mm3 (0.7-4.5); Mean Corpuscular Hemoglobin 28.7 pg (27.0-31.2); Mean Corpuscular Volume 89.7 fl (81-99); Mean Platelet Volume 7.8 fl (7.4-10.4); Monocytes # 0.2 K/mm3 (0.1-1.0); Monocytes % 4.1 % (1.7-9.3); Neutrophils # 4.6 K/mm3 (1.8-7.8); Neutrophils % 82.4 % (37.0-80.0); Platelet Count 162 K/mm3 (142-424); Red Blood Count 3.69 M/mm3 (4.20-5.40); Red Cell Distribution Width 19.5 % (11.5-17.5); White Blood Count 5.5 K/mm3 (4.8-10.8)
[2020-03-16 16:07] LABS: Alanine Aminotransferase 23 U/L (12-78); Albumin Level 3.9 g/dl (3.5-5.0); Albumin/Globulin Ratio 0.9 (1.1-1.8); Alkaline Phosphatase 372 U/L (38-126); Anion Gap 13.4 mEq/L (5-15); Aspartate Amino Transferase 34 U/L (14-36); Bilirubin,Total 1.3 mg/dl (0.2-1.3); Blood Urea Nitrogen 11 mg/dl (7-17); Calcium 9.8 mg/dl (8.4-10.2); Carbon Dioxide 28 mmol/L (22.0-30.0); Chloride 96 mmol/L (98-107); Estimated Glomerular Filt Rate 102 ml/min (>60); GFR (African American) 123 ML/MIN (>60); Globulin 4.4 g/dL (1.3-3.2); Glucose 93 mg/dl (74-100); Potassium 4.4 mmoL/L (3.5-5.1); Sodium 133 mmol/L (136-145); Total Protein,Serum 8.3 g/dl (6.3-8.2)
== END ==
PROVIDERS: Visit Provider Internal Medicine Adolescent Medicine
DX: M54.5 Low back pain (principal); M53.3 Sacrococcygeal disorders, not elsewhere classified; M25.552 Pain in left hip; D50.9 Iron deficiency anemia, unspecified
CPT/HCPCS: 36415; 72110; 72202; 73502; 80053; 85025

== ENCOUNTER → 2020-03-27 14:14 | Outpatient (CLI) | payer OTHER, SELFPAY ==
--- NOTE | 2020-03-27 14:19 | MR_ITS ---
PROCEDURE: MR LUMBAR SPINE WO CON CLINICAL INDICATION: COLLAPSE OF LUMBAR VERTEBRA FALL SEPTEMBER 2019, LOW BACK PAIN, COMPRESSION FX. PRIOR XRAYS COMPARISON: CR XR LUMBAR SPINE 2-3V from 12/31/2019 CR XR LUMBAR SPINE MIN 4V from 03/16/2020 TECHNIQUE: Standard multiplanar multiecho sequences are performed without contrast. 3-D MIP and myelographic images are also rendered and reviewed FINDINGS: There is normal alignment. Spinal cord ends at the L1 level. L1-L2: Unremarkable. L2-L3: Degenerative disc disease. There is a Schmorl's node along the inferior endplate of L2. There are mild wedge compression changes L3 superiorly. Along the superior endplate of L3 there is focal increased T2 signal centrally and anteriorly which is contiguous with the endplate and also contiguous with the Schmorl's node along the inferior endplate of L2. The compression changes at L3 have been present since 12/31/2019 as seen on previous radiograph. There is approximately 30 percent loss of height anteriorly of L3. There is decreased T1 and increased T2 signal at L2 and L3. There is concentric bulging disc with an associated broad-based left paracentral, foraminal and lateral disc protrusion/disc osteophyte complex. There is fullness of the soft tissues on the left in the paravertebral region. There is severe left lateral recess narrowing and left-sided foraminal narrowing. Endplate osteophytes are present posteriorly and eccentric toward the left. Facet and ligamentum hypertrophy noted at this level as well contributing to the lateral recess and foraminal narrowing and canal stenosis. L3-L4: Mild facet and ligamentum hypertrophy. Increased T1 signal noted at L4 consistent with lipomatosis involvement. L4-5: Unremarkable. L5-S1: Unremarkable. IMPRESSION: 1. There is an abnormal appearance of L2 and L3 with compression change of L3 of approximately 30 percent. Bone marrow edema is noted at L2 and L3 with Schmorl's nodes and a prominent left paracentral foraminal and lateral disc osteophyte complex along with facet and ligamentum hypertrophy causing severe left lateral recess and foraminal narrowing with canal stenosis at this level. There is some prominence of the soft tissues in the left paravertebral region. The overall findings does raise the suspicion of spondylo discitis. Please correlate with clinical parameters. 2. Other degenerative changes as described above. Dictated by: Kiel Gaffney MD 03/28/2020 05:48 Kiel Gaffney MD in [place] 03/28/2020 05:48
== END ==
PROVIDERS: PCP Internal Medicine Adolescent Medicine; Visit Provider Internal Medicine Adolescent Medicine
DX: M48.56XA Collapsed vertebra, not elsewhere classified, lumbar region, initial encounter for fracture (principal)
CPT/HCPCS: 72148; 76376

== ENCOUNTER → 2020-04-02 14:35 | Outpatient (POV) | payer OTHER, SELFPAY ==
[2020-04-02 14:54] VITALS: BP 110/71; PULSE 65; RESP 18; TEMP 36.8; O2SAT 99; BMI 19.4
--- NOTE | 2020-04-02 17:18 | HMH.PMCON ---
Assessment and Plan (1) Compression fracture Status: Acute Category: Medical (2) Low back pain Status: Acute Category: Medical Code(s): M54.5 - Low back pain - Assessment and plan all Dx Assessment and Plan for all problems:: We will refer the patient to a neurosurgeon as soon as possible. We will provide her with a brace. Patient is uninterested in injections at this time. I will follow-up with her after she seen by the surgeon. Dr. Villalobos has reviewed this note and agrees with this plan of care. This note was dictated using voice recognition software and may contain errors or omissions HPI - Data of Consult Consult date: 04/02/20 Requesting Physician: Melva Turner APRN Primary Care Provider: Gold Gongora MD - Consult Narrative Reason for consult: Compression fracture History of present illness: Ms. Leblanc is a 59 year old female who presents today for consultation in regards to her compression fracture she has compression changes at L3 that were present 12/31/2019 but she has L3 compression changes at this time. She does have a Schmorl's node also in that area. I discussed with Dr. Solitario in regards to kyphoplasty at this time he feels more comfortable sending her to a surgeon. Patient is not interested in any epidural injections. Patient and I discussed bracing to which she states you will not touch my body . I did provide her with a brace to go home with. I asked her if she would like to go to the emergency room she states no patient states that her pain is a 10 out of 10. She does look visibly uncomfortable patient states that she will have to get disability. CC: Melva Turner APRN [facility] History I have reviewed the patient's past medical history: Yes Medical History: Reports:: Valvular Heart Disease Denies:: Cancer, Diabetes Mellitus Type 1, Diabetes Mellitus Type 2, MRSA *Have you ever received a pneumonia vaccine?: Yes *Have you received a flu vaccine this season?: Yes Other Medical History: Reports: Anemia, Arthritis, Cataracts, Liver Disease Other Surgeries: Yes: Amputation: No Fractures: No - *Social History Smoking Status: Never smoker Alcohol Intake: never Substance Use Type: denies use *Occupational Status:: employed Housing: house Household Members: significant other *Travel in the last 8 weeks: None Family Hx:: Unable to obtain Review of Systems - Review of Systems ROS General: no recent weight change, no fever, no sleep disturbances Respiratory: no cough, no shortness of air, no recurring pulmonary infections Cardiovascular/Peripheral Vascular: No chest pain, No palpitations, no edema, no shortness of breath. Gastrointestinal: no new onset incontinence, normal bowel movements reported Genitourinary: no new onset incontinence Musculoskeletal: Back pain Psychiatric: normal mood/ affect Neurological: [denies new onset weakness in extremities], [denies new onset balance issues] Meds Home Medications Medication Instructions Recorded Confirmed Type Lactulose [Lactulose 10gm/15ml 10 gm PO DAILY 11/06/17 01/29/20 History Oral Soln] Allergies Allergy/AdvReac Type Severity Reaction Status Date / Time No Known Allergies Allergy Unverified 01/23/20 13:11 Objective Vital signs: Temp Pulse Resp BP Pulse Ox 98.2 F 65 18 110/71 99 04/02/20 14:54 04/02/20 14:54 04/02/20 14:54 04/02/20 14:54 04/02/20 14:54 Narrative: Physical Exam General: Alert and oriented x3, no acute distress, pleasant and cooperative, [on room air] Lungs: Resps E/U, Symmetrical chest expansion, Eyes: PERRL Musculoskeletal: Flexion and extension of lumbar spine somewhat guarded secondary to pain, deep tendon reflexes normal, strength in upper and lower extremities [5/5], [abnormal gait noted] Neurological: speech clear, 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
== END ==
PROVIDERS: PCP Internal Medicine Adolescent Medicine; Visit Provider Clinical Nurse Specialist Family Health
DX: S32.038A Other fracture of third lumbar vertebra, initial encounter for closed fracture (principal)
CPT/HCPCS: 99202; G0463

== ENCOUNTER 2020-06-28 12:15 | Emergency (ER) | payer OTHER, SELFPAY ==
[2020-06-28 12:15] VITALS: BP 125/69; PULSE 80; RESP 17; TEMP 37; O2SAT 99; BMI 16.9
--- NOTE | 2020-06-28 12:37 | XR_ITS ---
PROCEDURE: XR FEMUR RT 2V CLINICAL INDICATION: PAIN COMPARISON: No exams were available for comparison FINDINGS: No fracture or dislocation. No lytic or blastic change. There is normal mineralization. The joint spaces are well-preserved. No significant degenerative/arthritic changes. No erosive changes evident. Other findings:None. IMPRESSION: No acute findings. Dictated by: Kiel Gaffney MD 06/28/2020 13:15 Kiel Gaffney MD in [place] 06/28/2020 13:15
--- NOTE | 2020-06-28 12:39 | HMH.EDUTC ---
[facility] [place] Clinical Impression: Sciatic leg pain Disposition: Home, Self-Care Condition on Discharge: Good Instructions: Sciatica, DI for Sciatica, Methocarbamol, Methylprednisolone Additional Instructions: Take medication as prescribed FOllow up with your Family Doctor and Surgeon for further evaluation and treatment Straight to ER if any loss of control of bowel or bladder Make sure to follow up Return if needed Prescriptions: methylPREDNISolone [Medrol 4mg tab] 4 mg PO DIRECTED #21 tab Transmission Status: Pending to [id number] methocarbamoL [Methocarbamol 500mg Tablet] 500 mg PO BID PRN 5 Days #10 tab PRN Reason: Muscle Spasm Transmission Status: Pending to [id number] Referrals: Gold Gongora MD [Primary Care Provider] - As needed Time of Disposition: 14:51 Medical Decision Making - Rufino Inquiry Pt receiving controlled substance: No Rufino was queried for this patient: No Vital Signs: 06/28/20 12:15 06/28/20 13:25 Temperature 98.6 F 98.6 F Temperature Source Oral Pulse Rate 80 Pulse Rate [Right Brachial] 80 Respiratory Rate 17 17 Blood Pressure 125/69 Blood Pressure [Right Arm] 125/69 Blood Pressure Mean [Right Arm] 87 Blood Pressure Source [Right Arm] Automatic Cuff Blood Pressure Position [Right Arm] Sitting 02 Sat by Pulse Oximetry 99 Oxygen Delivery Method Room Air - Radiology Data #1 Image Reviewed: Yes I reviewed the patient's radiology image w/the ED provider Preliminary Findings: No Fracture Seen [facility] [place] - General Stated complaint: right leg numb and brett from hip to knee Time Seen by Provider: 06/28/20 12:39 Mode of Arrival: Ambulatory Source of Information: Patient Limitations: No Limitations Description of Symptoms (Recalled from Triage Doc. by RN): PATIENT C/O NUMBNESS, TINGLING, AND PAIN TO RIGHT LEG SINCE YESTERDAY HEENT Symptoms (Recalled from RN notes): No Resp Symptoms (Recalled from RN notes): No Skin Symptoms (Recalled from RN notes): No MS Symptoms (Recalled from RN notes): Yes Functional Status (Recalled from RN notes): WNL - History of Present Illness Provider Complaint: Patient state that she recently had back surgery States that she just went back to work last week and has been walking alot State that since returning to work she has been having pain on and off in her right hip area and for the last couple of days she has been having pain in her right upper leg area States that she is unsure how to describe the pain but it is like a toothache and hurts when she raises her leg Denies loss of control of bowel or bladder Denies known injury - Related Data Home Medications Medication Instructions Recorded Confirmed Lactulose [Lactulose 10gm/15ml 10 gm PO DAILY 11/06/17 06/28/20 Oral Soln] Previous Rx's Medication Instructions Recorded methocarbamoL [Methocarbamol 500mg 500 mg PO BID PRN 5 Days #10 tab 06/28/20 Tablet] methylPREDNISolone [Medrol 4mg 4 mg PO DIRECTED #21 tab 06/28/20 tab] Allergies Allergy/AdvReac Type Severity Reaction Status Date / Time No Known Allergies Allergy Verified 06/28/20 12:36 - Worker's Comp Is this a Worker's Comp case?: No [facility] History - Hepatitis A Screen Drug use history?: No High risk sexual behaviors?: No History of sexually transmitted infection?: No Currently employed?: No Childcare worker?: No Do you have indoor plumbing?: Yes Do you have electricity?: Yes Attestation statement:: This patient has been screened for Hepatitis A risk factors. I have reviewed the patient's past medical history: Yes Medical History: Reports:: Valvular Heart Disease Denies:: Cancer, Diabetes Mellitus Type 1, Diabetes Mellitus Type 2, MRSA Other Medical History: Reports: Anemia, Arthritis, Cataracts, Liver Disease Comment: Nonalcoholic liver cirrhosis Other Surgeries: Yes: Amputation: No Fractures: No - Social History Carmina
[2020-06-28 13:25] VITALS: BP 125/69; PULSE 80; RESP 17; TEMP 37; O2SAT 99
== END 2020-06-28 13:27 | disposition home or self-care (01) ==
PROVIDERS: Emergency Provider Nurse Practitioner; PCP Internal Medicine Adolescent Medicine
DX: M54.41 Lumbago with sciatica, right side (principal)
CPT/HCPCS: 73552; 99202; G0463

== ENCOUNTER → 2020-07-18 09:26 | Outpatient (CLI) | payer OTHER, SELFPAY ==
--- NOTE | 2020-07-18 09:30 | MR_ITS ---
PROCEDURE INFORMATION: Exam: MR Lumbar Spine Without Contrast Exam date and time: 07/18/2020 9:30 AM Age: 59 years old Clinical indication: Sciatica; Right; Prior surgery; Surgery date: 1-6 months; Surgery type: PT states they put cement in her back where the FX was and exposed the nerve. ; Patient HX: PT C/O severe RT leg pain with HX of lumbar surgery May 11, 2020. PT also C/O soft tissue lump on back since the surgery, area marked with a marker. TECHNIQUE: Imaging protocol: Multiplanar magnetic resonance images of the lumbar spine without intravenous contrast. COMPARISON: MR LUMBAR SPINE WO CON 03/27/2020 2:38 PM FINDINGS: Vertebrae: There is a moderate decrease in vertebral height at the L3 vertebral level, which has mildly progressed. Disc edema is identified at L2-L3, with marrow edema at the L2 and L3 vertebral levels. These findings are again concerning for discitis/osteomyelitis in the appropriate clinical setting. There is a progression of marrow edema within the L 2 vertebral body, with a decrease in disc edema. Marrow edema at the L3 vertebral level has improved. There is extension of marrow edema into the posterior elements bilaterally, with progression on the right side. Mild retrolisthesis of L2 on L3. Moderate levoscoliosis of the lumbar spine, new compared to the prior study. Spinal epidural space: No visualized epidural fluid collection. This evaluation is limited by the absence of postcontrast images. Spinal cord: The distal end of the conus medullaris ends at L1, normal in position. L1-L2: There is no significant narrowing of the thecal sac or neural foramina. L2-L3: Mild spinal canal stenosis visualized, without progression compared to the prior study. Severe right neural foraminal narrowing, with compression of the exiting right L3 nerve root. This has progressed. Mild left neural foraminal narrowing. L3-L4: Mild facet arthropathy. There is no significant narrowing of the thecal sac or neural foramina. L4-L5: Minimal disc bulging. No significant spinal canal stenosis. Mild left neural foraminal narrowing. No significant narrowing of the right neural foramen. Mild bilateral facet arthropathy. L5-S1: Bilateral facet arthropathy. There is no significant narrowing of the thecal sac or neural foramina. Sacrum/coccyx: A few small sacral meningeal cysts are visualized. Within the right iliac bone, there is a 7 mm hypointense nonspecific sclerotic lesion. Soft tissues: Posterior paraspinal swelling is identified bilaterally. Paravertebral swelling is identified extending from L1-L2 through L3-L4. Kidneys and ureters: A subcentimeter T2 hyperintense cyst is identified at the midpole of the left kidney. Intraperitoneal space: There is a small amount of free fluid within the right adnexa, which extends out of the field of view of this study. IMPRESSION: 1. There is a moderate decrease in vertebral height at the L3 vertebral level, which has mildly progressed. Disc edema is identified at L2-L3, with marrow edema at the L2 and L3 vertebral levels. These findings are again concerning for discitis/osteomyelitis in the appropriate clinical setting. There is a progression of marrow edema within the L 2 vertebral body, with a decrease in disc edema. Marrow edema at the L3 vertebral level has improved. There is extension of marrow edema into the posterior elements bilaterally, with progression on the right side. 2. Paraspinal swelling. 3. Mild retrolisthesis of L2 on L3. 4. Degenerative changes are identified at multiple lumbar levels, as described above. 5. Mild spinal canal stenosis at L2-L3, without progression.
== END ==
PROVIDERS: PCP Internal Medicine Adolescent Medicine; Visit Provider Internal Medicine Adolescent Medicine
DX: M54.31 Sciatica, right side (principal)
CPT/HCPCS: 72148; 76376

== ENCOUNTER → 2020-08-28 16:18 | Outpatient (CLI) | payer OTHER, SELFPAY | PROVIDERS: Visit Provider Internal Medicine Adolescent Medicine | DX: R30.0 Dysuria (principal); B96.29 Other Escherichia coli [E. coli] as the cause of diseases classified elsewhere | CPT/HCPCS: 87086; 87088; 87186 ==

== ENCOUNTER → 2020-09-24 16:55 | Outpatient (CLI) | payer OTHER, SELFPAY ==
[2020-09-24 17:58] LABS: Basophils % 0.6 % (0.1-2.0); Eosinophils # 0.1 K/mm3 (0.0-0.4); Eosinophils % 4.7 % (0.1-12.0); Hematocrit 31.7 % (37.0-47.0); Hemoglobin 10.8 g/dL (12.2-16.2); Lymphocytes # 0.5 K/mm3 (0.7-4.5); Lymphocytes % 22.4 % (10-50); Mean Corpuscular Hemoglobin 31.2 pg (27.0-31.2); Mean Corpuscular Volume 91.7 fl (81-99); Mean Platelet Volume 8.6 fl (7.4-10.4); Monocytes # 0.1 K/mm3 (0.1-1.0); Monocytes % 5.6 % (1.7-9.3); Neutrophils # 1.6 K/mm3 (1.8-7.8); Neutrophils % 66.7 % (37.0-80.0); Platelet Count 79 K/mm3 (142-424); Red Blood Count 3.45 M/mm3 (4.20-5.40); Red Cell Distribution Width 15.3 % (11.5-17.5); White Blood Count 2.4 K/mm3 (4.8-10.8)
[2020-09-24 18:49] LABS: INR 0.93 (0.9-1.1)
[2020-09-24 19:50] LABS: Alanine Aminotransferase 64 U/L (12-78); Albumin Level 3.9 g/dl (3.5-5.0); Albumin/Globulin Ratio 1.1 (1.1-1.8); Alkaline Phosphatase 257 U/L (38-126); Anion Gap 12.7 mEq/L (5-15); Aspartate Amino Transferase 84 U/L (14-36); Bilirubin,Total 0.7 mg/dl (0.2-1.3); Blood Urea Nitrogen 14 mg/dl (7-17); Calcium 9.1 mg/dl (8.4-10.2); Carbon Dioxide 27 mmol/L (22.0-30.0); Chloride 103 mmol/L (98-107); Estimated Glomerular Filt Rate 102 ml/min (>60); GFR (African American) 123 ML/MIN (>60); Globulin 3.7 g/dL (1.3-3.2); Glucose 75 mg/dl (74-100); Magnesium 1.8 mg/dl (1.6-2.3); Potassium 3.7 mmoL/L (3.5-5.1); Sodium 139 mmol/L (136-145); Total Protein,Serum 7.6 g/dl (6.3-8.2)
== END ==
PROVIDERS: Visit Provider Internal Medicine Adolescent Medicine
DX: D50.9 Iron deficiency anemia, unspecified (principal); K74.60 Unspecified cirrhosis of liver
CPT/HCPCS: 36415; 80053; 83735; 85025; 85610

== ENCOUNTER → 2020-12-09 17:02 | Outpatient (CLI) | payer OTHER, SELFPAY ==
[2020-12-09 17:19] LABS: Basophils % 0.8 % (0.1-2.0); Eosinophils # 0.1 K/mm3 (0.0-0.4); Eosinophils % 4.6 % (0.1-12.0); Hematocrit 35.6 % (37.0-47.0); Hemoglobin 11.5 g/dL (12.2-16.2); Lymphocytes # 0.7 K/mm3 (0.7-4.5); Lymphocytes % 24.4 % (10-50); Mean Corpuscular HGB Conc 32.2 g/dL (31.8-35.4); Mean Corpuscular Volume 93.2 fl (81-99); Mean Platelet Volume 8.7 fl (7.4-10.4); Monocytes # 0.1 K/mm3 (0.1-1.0); Monocytes % 4.8 % (1.7-9.3); Neutrophils # 1.8 K/mm3 (1.8-7.8); Neutrophils % 65.3 % (37.0-80.0); Platelet Count 83 K/mm3 (142-424); Red Blood Count 3.83 M/mm3 (4.20-5.40); Red Cell Distribution Width 13.9 % (11.5-17.5); White Blood Count 2.8 K/mm3 (4.8-10.8)
[2020-12-09 17:31] LABS: INR 1.04 (0.9-1.1)
[2020-12-09 17:46] LABS: Chloride 102 mmol/L (98-107); Potassium 4.3 mmoL/L (3.5-5.1); Sodium 137 mmol/L (136-145)
[2020-12-09 17:48] LABS: Alanine Aminotransferase 39 U/L (12-78); Aspartate Amino Transferase 64 U/L (14-36); Blood Urea Nitrogen 9 mg/dl (7-17); Estimated Glomerular Filt Rate 85 ml/min (>60); GFR (African American) 103 ML/MIN (>60)
[2020-12-09 17:49] LABS: Alkaline Phosphatase 199 U/L (38-126); Anion Gap 11.3 mEq/L (5-15); Bilirubin,Total 0.7 mg/dl (0.2-1.3); Calcium 9.1 mg/dl (8.4-10.2); Carbon Dioxide 28 mmol/L (22.0-30.0); Globulin 3.9 g/dL (1.3-3.2); Glucose 82 mg/dl (74-100); Total Protein,Serum 7.9 g/dl (6.3-8.2)
== END ==
PROVIDERS: Visit Provider Internal Medicine Adolescent Medicine
DX: K74.60 Unspecified cirrhosis of liver (principal); D50.9 Iron deficiency anemia, unspecified
CPT/HCPCS: 36415; 80053; 85025; 85610

== ENCOUNTER → 2021-01-16 10:37 | Outpatient (CLI) | payer OTHER, SELFPAY ==
--- NOTE | 2021-01-16 10:50 | XR_ITS ---
PROCEDURE INFORMATION: Exam: XR Left Ribs with PA Chest Exam date and time: 01/16/2021 10:50 AM Age: 60 years old Clinical indication: Other: Rib pain; Additional info: Pain, no fall just pain from back comes around the left side of ribs-- TECHNIQUE: Imaging protocol: XR Left ribs with PA chest. Views: 3 views COMPARISON: CR XR CHEST PORTABLE 01/02/2020 3:16 PM FINDINGS: Lungs: No focal airspace disease. Pleural spaces: Unremarkable. No pleural effusion. No pneumothorax. Heart/Mediastinum: Cardiomediastinal silhouette is within normal limits. Bones/joints: No displaced rib fractures identified. IMPRESSION: 1. No acute cardiopulmonary abnormality. 2. No displaced rib fractures identified.
== END ==
PROVIDERS: PCP Internal Medicine Adolescent Medicine; Referring Provider Internal Medicine Adolescent Medicine; Visit Provider Internal Medicine Adolescent Medicine
DX: R07.81 Pleurodynia (principal)
CPT/HCPCS: 71101

== ENCOUNTER 2021-01-19 17:01 | Emergency (ER) | payer OTHER, SELFPAY ==
[2021-01-19 17:11] VITALS: BP 137/78; PULSE 68; RESP 18; TEMP 36.7; O2SAT 100; BMI 21.9
--- NOTE | 2021-01-19 17:17 | XR_ITS ---
PROCEDURE INFORMATION: Exam: XR Left Wrist Exam date and time: 01/19/2021 5:17 PM Age: 60 years old Clinical indication: Injury or trauma; Fall; Blunt trauma (contusions or hematomas); Wrist; Left TECHNIQUE: Imaging protocol: XR Left wrist. Views: 3 or more views. COMPARISON: CR XR HAND LT MIN 3V 01/19/2021 5:26 PM FINDINGS: Bones/joints: Moderate osteoarthritis at the radiocarpal joint and 1st carpometacarpal joint, as manifested by moderately decreased joint space, moderate osteophyte formation, and subchondral sclerosis. Chronic appearing ulnar styloid avulsion fracture. No other acutely displaced fractures are identified. There is no evidence of joint dislocation. No aggressive osseous lesions. Soft tissues: There is no significant soft tissue swelling. IMPRESSION: 1. Chronic appearing ulnar styloid avulsion fracture. Consider correlation with point tenderness at this level. 2. No other acute skeletal pathology identified.
--- NOTE | 2021-01-19 17:17 | XR_ITS ---
PROCEDURE INFORMATION: Exam: XR Left Shoulder Exam date and time: 01/19/2021 5:17 PM Age: 60 years old Clinical indication: Injury or trauma; Fall; Blunt trauma (contusions or hematomas); Shoulder; Left TECHNIQUE: Imaging protocol: XR Left shoulder. Views: 2 or more views. COMPARISON: CR XR RIBS LT MIN 3V W CXR1V 01/16/2021 10:52 AM FINDINGS: Bones/joints: Diffusely decreased bone density, as could be seen with osteopenia. Osseous anatomic alignment is well preserved. No acutely displaced fracture or dislocation. Joint spaces are well preserved. Vasculature: Calcified aortic knob. Soft tissues: Visualized chest is unremarkable. There is no significant soft tissue swelling. IMPRESSION: Negative for acute skeletal pathology.
--- NOTE | 2021-01-19 17:17 | XR_ITS ---
PROCEDURE INFORMATION: Exam: XR Left Hand Exam date and time: 01/19/2021 5:17 PM Age: 60 years old Clinical indication: Injury or trauma; Fall; Blunt trauma (contusions or hematomas); Hand; Left TECHNIQUE: Imaging protocol: XR Left hand. Views: 3 or more views. COMPARISON: No relevant prior studies available. FINDINGS: Bones/joints: Moderate osteoarthritis at the distal interphalangeal joints, radiocarpal joint, and 1st carpometacarpal joint. This is manifested by moderately decreased joint space, moderate osteophyte formation, and subchondral sclerosis. There is chronic/degenerative fusion of the index finger distal interphalangeal joint. There is severe osteoarthritis at the 3rd finger distal interphalangeal joint. There is no evidence of acutely displaced fractures. There is no evidence of joint dislocation. No aggressive osseous lesions. Soft tissues: There is no significant soft tissue swelling. IMPRESSION: 1. Negative for acute skeletal pathology. 2. Moderate to severe osteoarthritis.
--- NOTE | 2021-01-19 17:17 | XR_ITS ---
PROCEDURE INFORMATION: Exam: XR Left Elbow Exam date and time: 01/19/2021 5:17 PM Age: 60 years old Clinical indication: Injury or trauma; Fall; Blunt trauma (contusions or hematomas); Wrist; Left TECHNIQUE: Imaging protocol: XR Left elbow. Views: 3 or more views. COMPARISON: CR XR WRIST LT MIN 3V 01/19/2021 5:28 PM FINDINGS: Bones/joints: Osseous anatomic alignment is well preserved. No acutely displaced fracture or dislocation. Joint spaces are well preserved. Soft tissues: No significant soft tissue swelling. IMPRESSION: No acute findings.
--- NOTE | 2021-01-19 17:17 | XR_ITS ---
PROCEDURE INFORMATION: Exam: XR Left Humerus Exam date and time: 01/19/2021 5:17 PM Age: 60 years old Clinical indication: Injury or trauma; Fall; Blunt trauma (contusions or hematomas); Arm, upper; Left TECHNIQUE: Imaging protocol: XR Left humerus. Views: 2 or more views. COMPARISON: CR XR SHOULDER LT MIN 2V 01/19/2021 5:19 PM FINDINGS: Bones/joints: There is diffusely decreased bone density. There is no evidence of acutely displaced fractures. There is no evidence of joint dislocation. No aggressive osseous lesions. Soft tissues: There is no significant soft tissue swelling. Visualized chest is unremarkable. IMPRESSION: Negative for acute skeletal pathology.
--- NOTE | 2021-01-19 17:17 | XR_ITS ---
PROCEDURE INFORMATION: Exam: XR Left Forearm Exam date and time: 01/19/2021 5:17 PM Age: 60 years old Clinical indication: Injury or trauma; Fall; Blunt trauma (contusions or hematomas); Arm, lower; Left TECHNIQUE: Imaging protocol: XR Left forearm. Views: 2 views. COMPARISON: CR XR WRIST LT MIN 3V 01/19/2021 5:28 PM FINDINGS: Bones/joints: Old/healed ulnar styloid avulsion fracture. There is no evidence of acutely displaced fractures. There is no evidence of joint dislocation. No aggressive osseous lesions. Soft tissues: There is no significant soft tissue swelling. IMPRESSION: Negative for acute skeletal pathology.
--- NOTE | 2021-01-19 17:25 | PC.NURSE ---
pt to xray
--- NOTE | 2021-01-19 18:03 | HMH.EDGENADL ---
ED Disposition Clinical Impression: Contusion of left shoulder Qualifiers: Encounter type: initial encounter Qualified Code(s): S40.012A - Contusion of left shoulder, initial encounter Contusion of left arm Qualifiers: Encounter type: initial encounter Qualified Code(s): S40.022A - Contusion of left upper arm, initial encounter Forehead abrasion Qualifiers: Encounter type: initial encounter Qualified Code(s): S00.81XA - Abrasion of other part of head, initial encounter Fall Qualifiers: Encounter type: initial encounter Qualified Code(s): W19.XXXA - Unspecified fall, initial encounter Disposition: Home, Self-Care Condition on Discharge: Good Instructions: How to Use a Sling, DI for Shoulder Pain Additional Instructions: Sling for 3 days. Ice 20 minutes 3-4 times a day for pain and swelling. Tylenol No. 3 as needed for pain. Follow-up with orthopedics, Dr. Mcknight, call tomorrow to make appointment. Additional instructions for CONTROLLED SUBSTANCES: You have been prescribed a medication that is a controlled substance. Controlled substances include pain medications known as opiates and sedative nerve medications known as benzodiazepines. Tramadol, fioricet, and gabapentin are also controlled substances. Some common opiates include: Codeine (such as Tylenol #3) Hydrocodone (Vicodin, Lortab, Lorcet, [place]) Oxycodone (Percocet, Percodan, Oxycodone, Oxy IR) Some common benzodiazepines include: Diazepam (Valium) Lorazepam (Ativan) Alprazolam (Xanax) Clonazepam (Klonopin) Oxazepam (Serax) All of these controlled substances are highly addictive and frequently abused. Misuse can and frequently does lead to addiction as well as overdose and . Medication should be stored in a locked cabinet or other secure storage unit. Do not store the medication in a motor vehicle. Short term supplies, 3 days or less, are prescribed because of the highly addictive nature of the medication. Any of the controlled substance medication NOT taken should be disposed of properly and NOT SAVED. The recommended method of disposing of unused medications is: Place the medicines in a sealable plastic bag. If the medicine is a solid, crush it or add water to dissolve it. Add something undesirable (cat litter, coffee grounds, etc.) Dispose of sealed bag in household trash Do not flush or pour unused medicines down a sink or drain. Controlled substances should not be shared, given away or sold. Because of the addictive nature and frequent abuse, these medications are sometimes stolen. These medications should be kept in a safe place where they cannot be stolen. Do not keep them in your car or purse. Lost or stolen prescriptions for controlled substances WILL NOT BE REFILLED in this emergency department, regardless of whether a police report was filed. Prescriptions: Acetaminophen with Codeine [Tylenol with Codeine #3 tablet] 1 tab PO Q6HP PRN #8 tab PRN Reason: Moderate Pain Transmission Status: Sent to [id number] Referrals: Gold Gongora MD [Primary Care Provider] - - Critical Care Critical Care Time: No Attestation: On 01/19/21, the high probability of a clinically significant, sudden or life threatening deterioration of the following system(s) required my full and direct attention, intervention and personal management. The time I documented below is in addition to time spent performing reported procedures but includes the following listed in this critical care notation. Medical Decision Making - Rufino Inquiry Pt receiving controlled substance: Yes Rufino was queried for this patient: Yes (Has had Tylenol 3, [place], Percocet in the past) Risks and benefits of using a controlled substance: were discussed with pt by me Vital Signs: 01/19/21 17:11 Temperature 98.0 F Temperature Source Oral Pulse Rate [Right Radial] 68 Respiratory Rate 18 Blood Pressure [Right Arm] 137/78 Blood Pressure Me
[2021-01-19 18:30] VITALS: BP 140/75; PULSE 70; RESP 20; TEMP 36.7; O2SAT 99
== END 2021-01-19 18:30 | disposition home or self-care (01) ==
PROVIDERS: Emergency Provider Emergency Medicine; PCP Internal Medicine Adolescent Medicine
DX: S40.012A Contusion of left shoulder, initial encounter (principal); S40.022A Contusion of left upper arm, initial encounter; S00.81XA Abrasion of other part of head, initial encounter; W01.0XXA Fall on same level from slipping, tripping and stumbling without subsequent striking against object, initial encounter; Y92.89 Other specified places as the place of occurrence of the external cause; K74.60 Unspecified cirrhosis of liver
CPT/HCPCS: 73030; 73060; 73080; 73090; 73110; 73130; 99283

== ENCOUNTER → 2021-01-28 10:35 | Outpatient (CLI) | payer OTHER, SELFPAY ==
--- NOTE | 2021-01-28 10:39 | XR_ITS ---
PROCEDURE: XR HAND LT MIN 3V CLINICAL INDICATION: LT HAND PAIN COMPARISON: CR XR HAND LT MIN 3V from 01/19/2021 FINDINGS: No fracture or dislocation. No lytic or blastic change. There is normal mineralization. There are osteoarthritic changes at the 1st carpal metacarpal joint, 3rd DIP joint 4th and 5th DIP joints most extensive at the 3rd DIP joint. There appears to be fusion of the 2nd DIP joint. Subchondral cystic changes are present at the distal ulna Other findings:None. IMPRESSION: Osteoarthritis Dictated by: Kiel Gaffney MD 01/28/2021 16:03 Kiel Gaffney MD in [place] 01/28/2021 16:03
== END ==
PROVIDERS: PCP Internal Medicine Adolescent Medicine; Visit Provider Internal Medicine Adolescent Medicine
DX: M79.642 Pain in left hand (principal)
CPT/HCPCS: 73130

== ENCOUNTER → 2021-06-10 16:28 | Outpatient (CLI) | payer OTHER, SELFPAY ==
[2021-06-10 16:34] LABS: Microscopic, Urine URINE MICROSCOPIC (MICROSCOPIC)
[2021-06-10 16:52] LABS: Basophils % 0.6 % (0.1-2.0); Eosinophils # 0.1 K/mm3 (0.0-0.4); Eosinophils % 1.9 % (0.1-12.0); Hematocrit 31.3 % (37.0-47.0); Hemoglobin 10.2 g/dL (12.2-16.2); Lymphocytes # 0.8 K/mm3 (0.7-4.5); Lymphocytes % 24.3 % (10-50); Mean Corpuscular HGB Conc 32.5 g/dL (31.8-35.4); Mean Corpuscular Hemoglobin 29.8 pg (27.0-31.2); Mean Corpuscular Volume 91.7 fl (81-99); Mean Platelet Volume 9.1 fl (7.4-10.4); Monocytes # 0.2 K/mm3 (0.1-1.0); Monocytes % 5.2 % (1.7-9.3); Neutrophils # 2.2 K/mm3 (1.8-7.8); Neutrophils % 67.9 % (37.0-80.0); Platelet Count 104 K/mm3 (142-424); Red Blood Count 3.42 M/mm3 (4.20-5.40); Red Cell Distribution Width 13.9 % (11.5-17.5); White Blood Count 3.2 K/mm3 (4.8-10.8)
[2021-06-10 17:09] LABS: INR 1.06 (0.9-1.1); Prothrombin Time 11.9 seconds (10.1-12.5)
[2021-06-10 17:44] LABS: Appearance,Urine CLEAR (Clear); Blood, Urine TRACE-I (Negative); Color,Urine YELLOW (Yellow); Glucose,Urine (UA) Negative (Negative); Ketones,Urine Negative (Negative); Leukocyte Esterase,Urine 2+ (Negative); Nitrate,Urine POSITIVE (Negative); Protein,Urine Negative (Negative); Specific Gravity, Urine 1.025 (1.005-1.030)
[2021-06-10 17:54] LABS: Chloride 104 mmol/L (98-107); Sodium 135 mmol/L (136-145)
[2021-06-10 17:55] LABS: Bilirubin,Urine 1+ (Negative); Potassium 3.9 mmoL/L (3.5-5.1)
[2021-06-10 17:57] LABS: Alanine Aminotransferase 25 U/L (12-78); Alkaline Phosphatase 242 U/L (38-126); Anion Gap 8.9 mEq/L (5-15); Aspartate Amino Transferase 49 U/L (14-36); Bilirubin,Total 1.2 mg/dl (0.2-1.3); Blood Urea Nitrogen 8 mg/dl (7-17); Carbon Dioxide 26 mmol/L (22.0-30.0); Estimated Glomerular Filt Rate 102 ml/min (>60); GFR (African American) 123 ML/MIN (>60)
[2021-06-10 17:58] LABS: Albumin Level 3.8 g/dl (3.5-5.0); Calcium 8.3 mg/dl (8.4-10.2); Globulin 3.7 g/dL (1.3-3.2); Glucose 89 mg/dl (74-100); Total Protein,Serum 7.5 g/dl (6.3-8.2)
[2021-06-10 18:11] LABS: Bacteria,Urine 4+ /lpf; RBC,Urine Occasional #/hpf (0-3); Squamous Epithelial Cell,Urine Occasional #/hpf (0-5); WBC,Urine 20-50 #/hpf (0-3)
== END ==
LOC: LAB 16:29
PROVIDERS: PCP Internal Medicine Adolescent Medicine; Visit Provider Internal Medicine Adolescent Medicine
DX: K64.4 Residual hemorrhoidal skin tags (principal)
CPT/HCPCS: 36415; 80053; 81001; 85025; 85610; 87086; 87088; 87186

== ENCOUNTER 2022-02-27 23:44 | Emergency (ER) | payer BC, SELFPAY ==
[2022-02-27 23:55] VITALS: BP 120/69; PULSE 114; RESP 21; TEMP 36.8; O2SAT 100; BMI 20.9
--- NOTE | 2022-02-28 00:02 | CT_ITS ---
PROCEDURE INFORMATION: Exam: CT Abdomen And Pelvis With Contrast Exam date and time: 02/28/2022 1:15 AM Age: 61 years old Clinical indication: Vomiting; Additional info: Vomiting bleed TECHNIQUE: Imaging protocol: Computed tomography of the abdomen and pelvis with contrast. Radiation optimization: All CT scans at this facility use at least one of these dose optimization techniques: automated exposure control; mA and/or kV adjustment per patient size (includes targeted exams where dose is matched to clinical indication); or iterative reconstruction. Contrast material: ISOVUE; Contrast volume: 75 ml; Contrast route: IV; COMPARISON: CT ABDOMEN PELVIS W CON 01/02/2020 2:52 PM FINDINGS: Lungs: Visualized lung bases are clear. Heart: Heart size normal. Mediastinal space: Visualized distal esophagus demonstrates moderate-severe submucosal varices which are progressed/increased since 2019. Submucosal varices in the gastric cardia also visualized. No intraluminal contrast accumulation to suggest active hemorrhage is identified currently. There is moderate food content in the stomach. Liver: Irregular liver contour consistent with hepatic cirrhosis. No mass lesions. Chronic slight intrahepatic biliary ductal dilatation in the central liver dome unchanged from 2019. Gallbladder and bile ducts: Normal. No calcified stones. No ductal dilation. Pancreas: There is mild stranding around the pancreatic neck, body, and tail. This might be related to generalized anasarca/edema but seems slightly greater near the pancreas and could indicate mild changes of pancreatitis, correlate with lipase. No evidence of pancreatic necrosis. No fluid collections or ductal dilatation. Spleen: Severe splenomegaly consistent with portal hypertension measuring up to 17.7 cm. No focal splenic lesions. Adrenal glands: Normal. No adrenal mass. Kidneys and ureters: There are 2 small nonobstructive right renal stones measuring 1-2 mm each. There is 6 small nonobstructive left renal stones measuring up to 4 mm. No hydronephrosis or hydroureter. No ureteral stones are identified. Mild chronic left renal cortical scarring unchanged. Stomach and bowel: Mild-moderate bowel wall thickening in the small bowel and colon probably related to hepatic cirrhosis with hepatic enteropathy/colopathy secondary to hypoproteinemia and wall edema. Cannot exclude elements of infectious/inflammatory enteritis/colitis. No evidence of bowel obstruction, perforation, or abscess. There is hyperdense content in the lumen of the proximal colon which could represent acute blood products although no definite contrast accumulation to suggest active GI hemorrhage is currently identified. Appendix: Patulous appendix measuring up to 7 mm diameter with slight wall thickening, which is similar to the previous appearance on 01/02/2020 and given the generalized bowel wall thickening present throughout the abdomen, this probably represents additional changes of hepatic colopathy. The lumen is aerated throughout and there is absent stranding along its lateral margin, and the findings are not felt to be consistent with acute appendicitis. Intraperitoneal space: Small volume ascites in the pelvis. No free air. Vasculature: Dilated main portal vein consistent with portal hypertension. Recanalized periumbilical veins, prominent gastroesophageal varices, and splenorenal shunt vascularity are all consistent with portal hypertension and portosystemic shunting. Dilated left gonadal vein and prominent left adnexal veins suggests chronic changes of pelvic congestion syndrome. Lymph nodes: No adenopathy. Urinary bladder: The
[2022-02-28 00:12] LABS: Eosinophils # 0.1 K/mm3 (0.0-0.4); Monocytes # 0.2 K/mm3 (0.1-1.0); White Blood Count 4.1 K/mm3 (4.8-10.8)
[2022-02-28 00:13] LABS: Basophils % 0.2 % (0.1-2.0); Eosinophils % 2.6 % (0.1-12.0); Lymphocytes # 0.7 K/mm3 (0.7-4.5); Mean Corpuscular HGB Conc 31.2 g/dL (31.8-35.4); Mean Corpuscular Hemoglobin 22.4 pg (27.0-31.2); Mean Corpuscular Volume 71.8 fl (81-99); Mean Platelet Volume 8.6 fl (7.4-10.4); Monocytes % 3.7 % (1.7-9.3); Neutrophils # 3.2 K/mm3 (1.8-7.8); Neutrophils % 76.5 % (37.0-80.0); Platelet Count 117 K/mm3 (142-424); Red Blood Count 2.58 M/mm3 (4.20-5.40); Red Cell Distribution Width 20.7 % (11.5-17.5)
[2022-02-28 00:14] LABS: Alanine Aminotransferase 25 U/L (12-78); Albumin Level 2.8 g/dl (3.5-5.0); Albumin/Globulin Ratio 0.8 (1.1-1.8); Alkaline Phosphatase 211 U/L (38-126); Anion Gap 10.5 mEq/L (5-15); Aspartate Amino Transferase 47 U/L (14-36); Blood Urea Nitrogen 23 mg/dl (7-17); Calcium 8.9 mg/dl (8.4-10.2); Carbon Dioxide 24 mmol/L (22.0-30.0); Chloride 104 mmol/L (98-107); Creatinine Clearance Estimated 53 mL/min (50-200); Estimated Glomerular Filt Rate 73 ml/min (>60); GFR (African American) 88 ML/MIN (>60); Globulin 3.6 g/dL (1.3-3.2); Glucose 112 mg/dl (74-100); Hematocrit 18.5 % (37.0-47.0); Hemoglobin 5.8 g/dL (12.2-16.2); Potassium 3.5 mmoL/L (3.5-5.1); Sodium 135 mmol/L (136-145); Total Protein,Serum 6.4 g/dl (6.3-8.2)
--- NOTE | 2022-02-28 00:14 | PC.NURSE ---
Leroy in lab called a critical h&h of 5.8/18.5. Notified.
[2022-02-28 00:15] LABS: INR 1.19 (0.9-1.1); Prothrombin Time 12.7 seconds (10.1-12.5)
[2022-02-28 00:41] VITALS: BP 101/62; BP 106/56; BP 99/59; PULSE 101; PULSE 108; PULSE 97
[2022-02-28 01:02] LABS: Coronavirus 19, PCR Not Detected (NotDetected); Influenza A, PCR Not Detected (NotDetected); Influenza B, PCR Not Detected (NotDetected)
--- NOTE | 2022-02-28 01:03 | HMH.EDGIBL ---
Discharge Plan Disposition Patient Disposition: Xfer Short-Term Hosp Chief Complaint: GI Bleed Prescriptions Prescriptions: No Action lactulose 10 GM/15 ML solution 10 gm PO DAILY Referrals Follow up/Referrals: Gold Gongora MD [Primary Care Provider] - See instructions Clinical Impressions Clinical Impression: Cirrhosis, Acute upper gastrointestinal bleeding, Bleeding esophageal varices, Hypertension, portal, ABLA (acute blood loss anemia) Instructions Patient Instructions: DI for Gastrointestinal Bleeding Discharge ED Provider: Az Rivera GI Bleed HPI General Chief complaint: GI Bleed Stated complaint: vomiting blood Time Seen by Provider: 02/27/22 23:50 Mode of Arrival: Ambulatory Source of Information: Patient Limitations: No Limitations Description of Symptoms (Recalled from ER Triage Doc. by RN): Pt reports vomiting up chunks of blood aprox 45 min prior to arrival. Pt has no other complaints at this time and denies recent illness. She says the clots were dark and not bright red blood. History of Present Illness HPI Narrative: pt has had dx of liver dis over the last 10 yrs denied known etiology but reports had hep as child - no etoh and no prev bleeding but has been told has esopahgeal varicies - no known ht dis or diabetes - no tob - had nausea and dark stool which started yesterday - no abd pain - last admit 2019 for pyelo and reported op spine procedure 2020 complaint: gross hematemesis and melena Onset (ago): hour(s) Consistency: intermittent Severity: moderate Context: liver disease and known esophageal varices Associated symptoms: nausea Treatments Prior to Arrival: none Related Data Home Medications Medication Instructions Recorded Confirmed lactulose 10 gram/15 mL oral 10 gm PO DAILY CIRRHOSIS 11/06/17 06/28/20 solution Allergies Allergy/AdvReac Type Severity Reaction Status Date / Time No Known Allergies Allergy Verified 06/28/20 12:36 [facility] Disclaimer: The information contained in this section may have been updated after the patient was seen, as this information can be updated by other users. Social History Smoking Status: Never smoker alcohol intake: never substance use type: denies use current occupational status: other Travel in the last 8 weeks: None household members: significant other housing: house caffeine: No ROS Obtained: Yes All systems reviewed & no additional complaints except as documented Physical Exam General General appearance: alert Head Head exam: normocephalic Eye Eye exam: Present PERRL, EOMI and other (pale tongue and conj); Absent scleral icterus ENT ENT exam: Present mucous membranes moist Neck Neck exam: Present full ROM and trachea midline Respiratory Respiratory exam: Present normal lung sounds bilaterally; Absent respiratory distress Cardiovascular Cardiovascular exam: Present regular rate and systolic murmur Abdominal Exam Abdominal exam: Present soft; Absent tenderness, guarding, rebound, rigidity or ascites Rectal Exam Rectal exam: Present heme (+) stool Extremities Exam Extremities exam: Present edema; Absent joint swelling or calf tenderness Back Exam Back exam: Absent full ROM Neurological Exam Neurological exam: Present alert, oriented X3 and CN II-XII intact; Absent motor sensory deficit Psychiatric Psychiatric exam: Present normal affect Skin Skin exam: Absent rash Medical Decision Making Medical Records Medical records reviewed: Yes I reviewed the patient's medical records. Rufino Inquiry Pt receiving controlled substance: No Vital Signs: 02/27/22 23:55 02/28/22 00:41 Temperature 98.3 F Temperature Source Oral Pulse Rate [Orthostatic Lying] 97 H Pulse Rate [Orthostatic Sitting] 101 H Pulse Rate [Orthostatic Standing] 108 H Pulse Rate [Right Radial] 114 H Respiratory Rate 21 Blood Pressure [Orthostatic Lying] 106/56 L Blood Pressure [Orthostatic Sitting] 1
--- NOTE | 2022-02-28 01:38 | ECG_ITS ---
APPROVED REPORT Exam: Resting ECG HR:98 bpm ECG Measurements Heart Rate 98 AXES AK 143 P 64 QRSd 95 QRS 24 QT 352 T 61 QTc 407 Conclusion SINUS RHYTHM NORMAL ECG UNCONFIRMED REPORT Electronically signed by : Gold Gongora MD 02/28/2022 12:16:20
--- NOTE | 2022-02-28 01:51 | PC.NURSE ---
pt accidentally pulled her LAC IV out. New site accessed at R forearm, 20g.
[2022-02-28 01:56] LABS: Occult Blood,Stool Positive (Negative)
--- NOTE | 2022-02-28 02:01 | PC.NURSE ---
RICH esquivel MD [facility] and asked this RN to s/w RICH. I did s/w with the reading radiologist Dr Morgan and let him know that Dr. Rivera was s/w another MD regarding this pt's transfer and asked me to relay his findings. Radiologist was assured we received the report and this was handed to Dr. Rivera directly.
[2022-02-28 02:17] VITALS: BP 116/70; PULSE 100; RESP 18; TEMP 36.6; O2SAT 98
--- NOTE | 2022-02-28 02:53 | PC.NURSE ---
[facility] here for pt transport to [facility]. Reports, records, disc of images, and labs given to [facility]. Report to [facility] ER already given to Romi.
== END 2022-02-28 02:58 | disposition short-term general hospital (02) ==
PROVIDERS: Emergency Provider Emergency Medicine; PCP Internal Medicine Adolescent Medicine
DX: K92.0 Hematemesis (principal); K92.1 Melena; D64.9 Anemia, unspecified; R01.1 Cardiac murmur, unspecified; I85.00 Esophageal varices without bleeding; K76.6 Portal hypertension; K76.9 Liver disease, unspecified
CPT/HCPCS: 36415; 74177; 80053; 82272; 85025; 85610; 86850; 93005; 96361; 96374; 99285; C9803; G0328; J2405; Q9967; U0003; U0005

== ENCOUNTER 2022-03-11 13:16 | Emergency (ER) | payer BC, SELFPAY ==
--- NOTE | 2022-03-11 14:12 | PC.NURSE ---
TRIAGED PT AT THIS TIME, AFTER EVALUATION, PT AND FAMILY WISH FOR PT TO BE SEEN AT .
[2022-03-11 14:14] VITALS: BP 110/60; PULSE 88; RESP 18; TEMP 36.8; O2SAT 99
== END 2022-03-11 14:14 | disposition left against medical advice (07) ==
PROVIDERS: Emergency Provider Emergency Medicine; PCP Internal Medicine Adolescent Medicine
DX: R42 Dizziness and giddiness (principal); E86.0 Dehydration; Z53.21 Procedure and treatment not carried out due to patient leaving prior to being seen by health care provider; W19.XXXA Unspecified fall, initial encounter
CPT/HCPCS: 99211

== ENCOUNTER 2022-05-27 08:33 | Outpatient (CLI) | payer BC, SELFPAY ==
[2022-05-27] VITALS (10 sets, daily range): BP systolic 110–142; BP diastolic 44–70; PULSE 74–85; RESP 18; TEMP 35.8–36.3; O2SAT 98–100; BMI 19.3
[2022-05-27 09:11] LABS: Basophils % 0.7 % (0.1-2.0); Eosinophils # 0.1 K/mm3 (0.0-0.4); Hematocrit 25.6 % (37.0-47.0); Lymphocytes # 0.5 K/mm3 (0.7-4.5); Lymphocytes % 20.4 % (10-50); Mean Corpuscular HGB Conc 31.2 g/dL (31.8-35.4); Mean Corpuscular Hemoglobin 26.1 pg (27.0-31.2); Mean Corpuscular Volume 83.6 fl (81-99); Mean Platelet Volume 9.9 fl (7.4-10.4); Monocytes # 0.1 K/mm3 (0.1-1.0); Monocytes % 2.8 % (1.7-9.3); Neutrophils # 1.9 K/mm3 (1.8-7.8); Neutrophils % 73.1 % (37.0-80.0); Platelet Count 116 K/mm3 (142-424); Red Blood Count 3.06 M/mm3 (4.20-5.40); Red Cell Distribution Width 15.6 % (11.5-17.5); White Blood Count 2.6 K/mm3 (4.8-10.8)
--- NOTE | 2022-05-27 13:05 | PC.NURSE ---
1305-collected 1 hour post h&H and took to lab
[2022-05-27 13:21] LABS: Hematocrit 28.4 % (37.0-47.0); Hemoglobin 9.1 g/dL (12.2-16.2)
== END 2022-05-27 13:05 | disposition home or self-care (01) ==
LOC: INF 08:33
PROVIDERS: PCP Internal Medicine Adolescent Medicine; Visit Provider Internal Medicine Adolescent Medicine
DX: D64.9 Anemia, unspecified (principal)
CPT/HCPCS: 36430; 85014; 85018; 85025; 86850; P9016

== ENCOUNTER → 2022-10-19 13:59 | Outpatient (CLI) | payer BC, SELFPAY ==
[2022-10-19 14:45] LABS: Basophils % 0.3 % (0.1-2.0); Eosinophils # 0.1 K/mm3 (0.0-0.4); Eosinophils % 4.6 % (0.1-12.0); Hematocrit 25.6 % (37.0-47.0); Hemoglobin 7.9 g/dL (12.2-16.2); Lymphocytes # 0.6 K/mm3 (0.7-4.5); Lymphocytes % 28.3 % (10-50); Mean Corpuscular HGB Conc 30.7 g/dL (31.8-35.4); Mean Corpuscular Hemoglobin 23.3 pg (27.0-31.2); Mean Corpuscular Volume 75.9 fl (81-99); Mean Platelet Volume 8.8 fl (7.4-10.4); Monocytes # 0.1 K/mm3 (0.1-1.0); Monocytes % 4.6 % (1.7-9.3); Neutrophils # 1.4 K/mm3 (1.8-7.8); Neutrophils % 62.3 % (37.0-80.0); Platelet Count 100 K/mm3 (142-424); Red Blood Count 3.37 M/mm3 (4.20-5.40); Red Cell Distribution Width 16.6 % (11.5-17.5); White Blood Count 2.2 K/mm3 (4.8-10.8)
== END ==
PROVIDERS: PCP Internal Medicine Adolescent Medicine; Visit Provider Internal Medicine Adolescent Medicine
DX: D50.9 Iron deficiency anemia, unspecified (principal)
CPT/HCPCS: 36415; 85025

== ENCOUNTER 2023-04-13 14:20 | Outpatient (CLI) | payer BC, SELFPAY ==
[2023-04-13 14:48] VITALS: BMI 19.7
--- NOTE | 2023-04-13 14:54 | ECG_ITS ---
APPROVED REPORT Exam: Resting ECG HR:81 bpm ECG Measurements Heart Rate 81 AXES ID 152 P 50 QRSd 86 QRS 14 QT 386 T 58 QTc 423 Conclusion SINUS RHYTHM NORMAL ECG UNCONFIRMED REPORT Electronically signed by : Gold Gongora MD 04/13/2023 16:29:51
[2023-04-13 14:59] LABS: Microscopic, Urine URINE MICROSCOPIC (MICROSCOPIC)
[2023-04-13 15:03] LABS: Appearance,Urine CLOUDY (Clear); Basophils % 0.8 % (0.1-2.0); Bilirubin,Urine Negative (Negative); Blood, Urine 2+ (Negative); Color,Urine YELLOW (Yellow); Eosinophils # 0.1 K/mm3 (0.0-0.4); Eosinophils % 3.8 % (0.1-12.0); Glucose,Urine (UA) Negative (Negative); Hematocrit 26.1 % (37.0-47.0); Hemoglobin 8.1 g/dL (12.2-16.2); Ketones,Urine Negative (Negative); Leukocyte Esterase,Urine 2+ (Negative); Lymphocytes # 0.6 K/mm3 (0.7-4.5); Lymphocytes % 22.1 % (10-50); Mean Corpuscular HGB Conc 30.8 g/dL (31.8-35.4); Mean Corpuscular Hemoglobin 22.9 pg (27.0-31.2); Mean Corpuscular Volume 74.2 fl (81-99); Monocytes # 0.1 K/mm3 (0.1-1.0); Monocytes % 5.4 % (1.7-9.3); Neutrophils # 1.7 K/mm3 (1.8-7.8); Neutrophils % 67.9 % (37.0-80.0); Nitrate,Urine POSITIVE (Negative); Platelet Count 113 K/mm3 (142-424); Protein,Urine Negative (Negative); Red Blood Count 3.52 M/mm3 (4.20-5.40); Red Cell Distribution Width 19.4 % (11.5-17.5); Specific Gravity, Urine 1.025 (1.005-1.030); White Blood Count 2.5 K/mm3 (4.8-10.8)
--- NOTE | 2023-04-13 15:03 | PC.NURSE ---
04/13/23 1550 Pt presents to dept with an order from an orthopedic surgeon at [facility] for preoperative tests prior to her surgery scheduled for wed (04/19/23). Pt states that she was given an order from the nurse and told to take the order to any hospital to have the tests done about 1 week prior to the surgery. Order noted for pt to have labs drawn, an ekg done, and a cxr. Venipuncture performed on pt using a butterfly access needle to pts rt ac x 1 stick by Diane Schwarz RN. Nasal swab performed per Diane Schwarz RN. Appropriate blood drawn and specimens sent to lab for analysis-pt also provided a UA specimen that was also sent. Resp dept staff came to pt and performed the EKG. Pt then taken to the radiology dept with the order for the cxr. Pt ok to be d/c'd from that point and return home.
[2023-04-13 15:06] LABS: Chloride 101 mmol/L (98-107)
[2023-04-13 15:07] LABS: Potassium 3.8 mmoL/L (3.5-5.1); Sodium 135 mmol/L (136-145)
[2023-04-13 15:09] LABS: Alanine Aminotransferase 20 U/L (12-78); Alkaline Phosphatase 153 U/L (38-126); Aspartate Amino Transferase 39 U/L (14-36); Bilirubin,Total 0.8 mg/dl (0.2-1.3); Blood Urea Nitrogen 6 mg/dl (7-17); Creatinine Clearance Estimated 50 mL/min (50-200); Estimated Glomerular Filt Rate 85 ml/min (>60); GFR (African American) 102 ML/MIN (>60)
--- NOTE | 2023-04-13 15:09 | XR_ITS ---
FINAL REPORT CLINICAL HISTORY: SOA FINDINGS: There is no evidence of effusion or other pleural disease. There is mild elevation of the left hemidiaphragm. The cardiac silhouette is unremarkable. IMPRESSION: Unremarkable chest exam. Reviewed, Interpreted and Dictated by Hayes Baker MD Transcribed by Jackie Engle Authenticated and [facility]
[2023-04-13 15:10] LABS: Albumin Level 3.8 g/dl (3.5-5.0); Albumin/Globulin Ratio 0.9 (1.1-1.8); Anion Gap 8.8 mEq/L (5-15); Calcium 8.6 mg/dl (8.4-10.2); Carbon Dioxide 29 mmol/L (22.0-30.0); Globulin 4.2 g/dL (1.3-3.2); Glucose 90 mg/dl (74-100)
[2023-04-13 15:15] LABS: Activated Partial Thrombo Time 27.5 seconds (22.8-30.6); INR 1.07 (0.9-1.1); Prothrombin Time 11.5 seconds (10.1-12.5)
[2023-04-13 15:25] LABS: Bacteria,Urine 4+ /lpf
== END 2023-04-13 15:05 | disposition home or self-care (01) ==
PROVIDERS: PCP Internal Medicine Adolescent Medicine; Visit Provider Orthopaedic Surgery Adult Reconstructive Orthopaedic Surgery
DX: Z01.818 Encounter for other preprocedural examination (principal); S52.502A Unspecified fracture of the lower end of left radius, initial encounter for closed fracture
CPT/HCPCS: 71046; 80053; 81001; 85025; 85610; 85730; 87086; 87635; 93005; G0463

== ENCOUNTER 2023-04-25 13:10 | Outpatient (CLI) | payer BC, SELFPAY ==
--- NOTE | 2023-04-25 13:14 | XR_ITS ---
FINAL REPORT CLINICAL HISTORY: Left wrist fx FINDINGS: Left wrist Three views were obtained. Splint obscures bony detail. There is an impacted fracture of the distal radius. Degenerative changes are present. IMPRESSION: Fracture as above. Reviewed, Interpreted and Dictated by Fredrick Hurley III, MD Transcribed by Jackie Engle Authenticated and [facility]
== END 2023-04-25 23:59 ==
LOC: RAD 13:11
PROVIDERS: PCP Internal Medicine Adolescent Medicine; Visit Provider Orthopaedic Surgery
DX: S62.102A Fracture of unspecified carpal bone, left wrist, initial encounter for closed fracture (principal); Y99.9 Unspecified external cause status
CPT/HCPCS: 73110

== ENCOUNTER 2023-05-16 13:03 | Outpatient (CLI) | payer BC, SELFPAY ==
--- NOTE | 2023-05-16 13:06 | XR_ITS ---
FINAL REPORT CLINICAL HISTORY: lt wrist pain, fell Mar.21 COMPARISON: 02/23/2024 FINDINGS: LEFT WRIST Three views were obtained. There is a subacute, impacted fracture of the distal radius. The bones are osteopenic. There is no change in alignment. Moderate degenerative changes are present. IMPRESSION: Fracture as above. Reviewed, Interpreted and Dictated by Fredrick Hurley III, MD Transcribed by Jackie Engle Authenticated and . [facility]
== END 2023-05-16 23:59 ==
LOC: RAD 13:03
PROVIDERS: PCP Internal Medicine Adolescent Medicine; Visit Provider Orthopaedic Surgery
DX: S52.92XP Unspecified fracture of left forearm, subsequent encounter for closed fracture with malunion (principal)
CPT/HCPCS: 73110

== ENCOUNTER 2023-06-27 13:25 | Outpatient (CLI) | payer BC, SELFPAY ==
--- NOTE | 2023-06-27 13:29 | XR_ITS ---
FINAL REPORT CLINICAL HISTORY: left wrist fx COMPARISON: 05/16/2023 FINDINGS: Left wrist Three views were obtained. There is a transverse fracture through the distal radial metaphysis with increased callus formation. There is mild dorsal angulation of the distal fracture fragment. The bones are osteopenic. There are mild hypertrophic changes at the basilar joint. IMPRESSION: Healing fracture as detailed above. Reviewed, Interpreted and Dictated by Tarun Lutz MD Transcribed by Jackie Engle Authenticated and [facility][1]
== END 2023-06-27 23:59 ==
LOC: RAD 13:25
PROVIDERS: PCP Internal Medicine Adolescent Medicine; Visit Provider Orthopaedic Surgery
DX: M25.532 Pain in left wrist (principal); S52.92XD Unspecified fracture of left forearm, subsequent encounter for closed fracture with routine healing
CPT/HCPCS: 73110

== ENCOUNTER 2024-04-30 10:37 | Outpatient (CLI) | payer BC, SELFPAY ==
--- NOTE | 2024-04-30 10:40 | XR_ITS ---
FINAL REPORT CLINICAL HISTORY: right fore arm fx FINDINGS: Right forearm Two views were obtained. There are no acute findings in the proximal two thirds of the forearm. Cast material obscures a fracture of the distal radial metaphysis. There is posterior displacement of the distal radial fracture. Intra-articular extension is not excluded. There is soft tissue edema IMPRESSION: Fracture as above. Reviewed, Interpreted and Dictated by Codie Rodriguez MD Transcribed by Jackie Engle Authenticated and [facility]
== END 2024-04-30 23:59 | disposition home or self-care (01) ==
LOC: RAD 10:38
PROVIDERS: PCP Internal Medicine Adolescent Medicine; Visit Provider Physician Assistant Surgical
DX: S52.601A Unspecified fracture of lower end of right ulna, initial encounter for closed fracture (principal)
CPT/HCPCS: 73090

== ENCOUNTER 2024-05-13 18:21 | Emergency (ER) | payer BC, SELFPAY ==
[2024-05-13 18:44] VITALS: BP 131/57; PULSE 94; RESP 16; TEMP 36.6; O2SAT 100; BMI 18.9
--- NOTE | 2024-05-13 19:27 | PC.NURSE ---
pt maribel moved to room 10 at this time. pt ambulatory.
--- NOTE | 2024-05-13 19:41 | PC.NURSE ---
20G IV placed to LAC. type and screen collected and witnessed by lab
--- NOTE | 2024-05-13 19:45 | ED_ITS ---
Discharge Plan Disposition Patient Disposition: Home, Self-Care Condition: Good Prescriptions Prescriptions: New hydrocortisone acetate [Anusol-HC] 25 mg suppository 25 mg RI DAILY 14 Days Qty: 24 0RF No Action diclofenac sodium [Voltaren Arthritis Pain] 1 % gel 2 g topical QID Qty: 100 3RF Rx Instructions: apply to single elbow, wrist or hand; for hand includes palm/fingers/back of hand oxycodone 5 mg capsule PO Patient Comments: TAKE 1 CAPSULE BY MOUTH TWICE DAILY NEEDED FOR SEVERE PAIN (7-10 PAIN SCALE) lactulose 10 GM/15 ML solution 10 g PO DAILY Referrals Follow up/Referrals: Jarret Paez II, MD [Staff Physician] - See instructions Gold Gongora MD [Primary Care Provider] - See instructions Activity Restrictions/Add. Instructions Additional Instructions/Restrictions: You were evaluated in the emergency department today. At this time, your bleeding appears to have stopped. Please follow-up very closely with your primary care provider as well as with your GI doctor. copy supervisor your suppositories. Continue using your lactulose at home as prescribed. Return to the emergency department right away for new or worsening symptoms or recurrence of bleeding. Clinical Impressions Clinical Impression: Chronic anemia, Cirrhosis, Hemorrhoid Instructions Patient Instructions: DI for Hemorrhoids, DI for Gastrointestinal Bleeding Print Language Print Language: [place] Discharge ED Provider: Tiara De La O General Adult HPI General Chief complaint: GI Bleed Stated complaint: Rectal Bleeding Time Seen by Provider: 05/13/24 18:59 Mode of Arrival: Ambulatory Source of Information: Patient Description of Symptoms (Recalled from ER Triage Doc. by RN): Patient reports having hemorrhoids and that she has had a stream of blood from it all day today. States in the past month she has had to receive four units of blood. History of Present Illness HPI narrative: This patient is a 63-year-old female with a history of cirrhosis, esophageal varices status post banding, hemorrhoids, chronic anemia requiring blood transfusion presenting to the emergency department for evaluation with concern for bright red blood per rectum. She notes that she had a steady stream dripping at home that has been going on all day today. She notes that in the past month, she has had to receive 4 units of blood, which is an increase in frequency from her baseline blood transfusions that she is given. She denies any melena since her esophageal variceal banding. She denies any abdominal pain. She states that she knows this is coming from hemorrhoids, as she has had issues with them in the past. No other concerns noted at this time. Related Data Home Medications ?Medication ?Instructions ?Recorded ?Confirmed lactulose 10 gram/15 mL oral 10 g PO DAILY CIRRHOSIS 11/06/17 06/27/23 solution oxycodone 5 mg capsule mg PO 04/30/24 04/30/24 Previous Rx's ?Medication ?Instructions ?Recorded diclofenac sodium 1 % topical gel 2 g topical QID #100 grams 06/27/23 (Voltaren Arthritis Pain) hydrocortisone acetate 25 mg 25 mg RI DAILY 2 weeks #24 ea 05/13/24 rectal suppository (Anusol-HC) Allergies Allergy/AdvReac Type Severity Reaction Status Date / Time No Known Allergies Allergy Verified 04/30/24 11:16 [facility] Disclaimer: The information contained in this section may have been updated after the patient was seen, as this information can be updated by other users. Medical History Osteoporosis Liver disease Arthritis Valvular heart disease Vocal cord nodule Hx of esophageal varices Surgical History Hx of esophagogastroduodenoscopy H/O colonoscopy H/O section Family History Other Family history of Alzheimer's disease Family history of cancer Family history of diabetes mellitus type II Family history of stroke Social History Smoking Status: Never smoker alcohol intake: never substance use type: denies use current occupational status: employed and other Travel in the last 8 weeks: None household members: significant other housing: house caffeine: No Have you lived/traveled outside [place] in past 30 days?: No Contact w/someone who lives/traveled outside [place] past 30 days?: No Exposure to someone with infectious disease in past 14 days?: No Do you have a fever (greater than 100.4 F or 38 C)?: No Have you tested positive for COVID-19: No Exposed to someone with COVID-19 in past 14 days?: No Do you have a sore throat?: No Do you have a cough?: No Do you have any weakness?: No Do you have any diarrhea?: No Are you experiencing any unusual bleeding?: No Do you have any muscle aches/pain?: No Do you have any abdominal pain?: No Are you experiencing loss of taste or smell?: No Other Medical History Have you received the Flu Vaccine for this season: Yes Have you received the Pneumonia Vaccine: No ROS Obtained: Yes All systems reviewed & no additional complaints except as documented Physical Exam General General appearance: alert and in no apparent distress Head Head exam: atraumatic and normocephalic Eye Eye exam: Present normal appearance, PERRL and EOMI ENT ENT exam: Present normal exam, normal oropharynx, mucous membranes moist and normal external ear exam Neck Neck exam: Present normal inspection, full ROM and trachea midline; Absent tenderness Chest Chest inspection: Present normal inspection and symmetric chest wall rise; Absent tenderness Respiratory Respiratory exam: Present normal lung sounds bilaterally; Absent respiratory distress, wheezes, stridor or accessory muscle use Cardiovascular Cardiovascular exam: Present regular rate and normal rhythm Abdominal Exam Abdominal exam: Present soft; Absent distention, tenderness or guarding Extremities Exam Extremities exam: Present normal inspection, full ROM and normal capillary refill; Absent tenderness or edema Back Exam Back exam: Present normal inspection and full ROM; Absent tenderness Neurological Exam Neurological exam: Present alert, oriented X3, CN II-XII intact and normal gait; Absent motor sensory deficit Psychiatric Psychiatric exam: Present normal affect and normal mood Skin Skin exam: Present warm and dry Medical Decision Making Medical Records Medical records reviewed: Yes I reviewed the patient's medical records. Screening: Per USPSTF and CDC recommendations, given the prevalence of disease in our region, it is our hospital?s policy to screen for HIV and viral Hepatitis for all patients aged 18 and over and those with ongoing risk factors. Rufino Inquiry Pt receiving controlled substance: No Vital Signs: 05/13/24 18:44 05/13/24 20:01 05/13/24 20:12 Temperature 97.9 F Temperature Source Oral Pulse Rate 85 93 H Pulse Rate [Radial] 94 H Respiratory Rate 16 Blood Pressure 108/63 L 119/69 Blood Pressure [Right Arm] 131/57 L Blood Pressure Mean [Right Arm] 81 Blood Pressure Source Blood Pressure Source [Right Arm] Automatic Cuff Blood Pressure Position Blood Pressure Position [Right Arm] Sitting 02 Sat by Pulse Oximetry 100 98 99 Oxygen Delivery Method Room Air 05/13/24 20:30 05/13/24 20:53 Temperature 98.4 F Temperature Source Oral Pulse Rate 89 92 H Pulse Rate [Radial] Respiratory Rate 17 Blood Pressure 122/63 124/71 Blood Pressure [Right Arm] Blood Pressure Mean [Right Arm] Blood Pressure Source Automatic Cuff Blood Pressure Source [Right Arm] Blood Pressure Position Sitting Blood Pressure Position [Right Arm] 02 Sat by Pulse Oximetry 98 Oxygen Delivery Method Room Air Lab Data Lab results reviewed: Yes I reviewed the patient's lab results. Lab Results 05/13/24 19:37: WBC 3.9 L, RBC 3.35 L, Hgb 8.0 L, Hct 27.3 L, MCV 81.5, MCH 23.9 L, MCHC 29.3 L, RDW 23.3 H, Plt Count 136 L, MPV 9.5, Neut % (Auto) 77.0, Lymph % (Auto) 13.0, [place] % (Auto) 6.1, Eos % (Auto) 2.8, Baso % (Auto) 0.8, Neut # (Auto) 3.0, Lymph # (Auto) 0.5 L, [place] # (Auto) 0.2, Eos # (Auto) 0.1, Baso # (Auto) 0.0, PT 11.0, INR 1.00, APTT 24.7, Sodium 136, Potassium 4.0, Chloride 105, Carbon Dioxide 28, Anion Gap 7.0, BUN 17, Creatinine 0.60, Estimated Creat Clear 46, Estimated GFR 101, Est GFR ( Amer) 122, Glucose 83, Lactate 1.1, Calcium 8.5, Total Bilirubin 0.7, AST 46 H, ALT 25, Alkaline Phosphatase 167 H, Total Protein 7.0, Albumin 3.4 L, Globulin 3.6 H, Albumin/Globulin Ratio 0.9 L, Blood Type A Positive, Antibody Screen Negative 05/13/24 19:37 05/13/24 19:37 Orders (Tests/Meds): ORDERS Category Date Time Status Type and Screen Stat BBK 05/13/24 19:37 Completed CBC w/Auto Diff [Complete Blood Count Auto Diff] Stat Lab 05/13/24 19:37 Completed CMP [Comprehensive Metabolic Panel] Stat Lab 05/13/24 19:37 Completed Lactic Acid Stat Lab 05/13/24 19:37 Completed PT INR [Prothrombin Time INR] Stat Lab 05/13/24 19:37 Completed PTT [Activated Partial Thrombo Time] Stat Lab 05/13/24 19:37 Completed Medical Decision Narrative: In summary, this patient is a 63-year-old female presenting to the Emergency Department for evaluation of bright red blood per rectum. Differential diagnoses considered include but are not limited to hemorrhoidal bleeding, diverticular bleeding, upper GI bleed, lower GI bleed, acute blood loss anemia, hemorrhagic shock. Ruling out the most morbid conditions drove assessment. It should be noted patient's history includes cirrhosis with chronic anemia and thrombocytopenia which are not at goal therapy. This complicates all aspects of care by increasing patient's risk for morbidity. On exam, the patient is sitting upright in no acute distress with benign abdominal exam and no abdominal tenderness. Vitals are reassuring on cardiac telemetry with no hypotension or significant tachycardia. Workup included CBC, CMP, PT, PTT, lactic acid, type and screen. I performed rectal exam which did not demonstrate any active bleeding, though she does have multiple large hemorrhoids. CBC demonstrates a hemoglobin of 8. She notes that it was 8.9 on 05/09. She has mild leukopenia and thrombocytopenia as well, which are also chronic for her. Chemistry is reassuring. On reassessment, no bleeding. Vitals are reassuring on cardiac telemetry. I had shared decision making with the patient and offered admission for monitoring to make sure she does not have rebleeding from her hemorrhoids and to monitor hemoglobin, however I also advised that I do not feel it is completely unreasonable to go home and follow-up closely with GI with strict return precautions should she start developing bleeding again. She elects to go home with close outpatient follow-up. I did prescribe Anusol suppositories and gave her information for close follow-up and strict return precautions. She was discharged after all questions were answered. Critical Care Critical Care Time Critical Care Time: No
[2024-05-13 20:01] VITALS: BP 108/63; PULSE 85; O2SAT 98
[2024-05-13 20:05] LABS: Alanine Aminotransferase 25 U/L (12-78); Albumin Level 3.4 g/dl (3.5-5.0); Albumin/Globulin Ratio 0.9 (1.1-1.8); Alkaline Phosphatase 167 U/L (38-126); Aspartate Amino Transferase 46 U/L (14-36); Bilirubin,Total 0.7 mg/dl (0.2-1.3); Blood Urea Nitrogen 17 mg/dl (7-17); Calcium 8.5 mg/dl (8.4-10.2); Carbon Dioxide 28 mmol/L (22.0-30.0); Chloride 105 mmol/L (98-107); Creatinine Clearance Estimated 46 mL/min (50-200); Estimated Glomerular Filt Rate 101 ml/min (>60); GFR (African American) 122 ML/MIN (>60); Globulin 3.6 g/dL (1.3-3.2); Glucose 83 mg/dl (74-100); Lactic Acid 1.1 mmol/L (0.7-2.1); Sodium 136 mmol/L (136-145)
[2024-05-13 20:07] LABS: Basophils % 0.8 % (0.1-2.0); Eosinophils # 0.1 K/mm3 (0.0-0.4); Eosinophils % 2.8 % (0.1-12.0); Hematocrit 27.3 % (37.0-47.0); Lymphocytes # 0.5 K/mm3 (0.7-4.5); Mean Corpuscular HGB Conc 29.3 g/dL (31.8-35.4); Mean Corpuscular Hemoglobin 23.9 pg (27.0-31.2); Mean Corpuscular Volume 81.5 fl (81-99); Mean Platelet Volume 9.5 fl (7.4-10.4); Monocytes # 0.2 K/mm3 (0.1-1.0); Monocytes % 6.1 % (1.7-9.3); Platelet Count 136 K/mm3 (142-424); Red Blood Count 3.35 M/mm3 (4.20-5.40); Red Cell Distribution Width 23.3 % (11.5-17.5); White Blood Count 3.9 K/mm3 (4.8-10.8)
[2024-05-13 20:12] VITALS: BP 119/69; PULSE 93; O2SAT 99
--- NOTE | 2024-05-13 20:12 | PC.NURSE ---
accompanied Dr De La O to bedside for rectal exam . pt voices no needs. call light in [facility]. daughter at bedside.
[2024-05-13 20:30] VITALS: BP 122/63; PULSE 89; O2SAT 98
[2024-05-13 20:50] LABS: Activated Partial Thrombo Time 24.7 seconds (22.5-28.5)
[2024-05-13 20:53] VITALS: BP 124/71; PULSE 92; RESP 17; TEMP 36.9; O2SAT 99
== END 2024-05-13 20:55 | disposition home or self-care (01) ==
PROVIDERS: Emergency Provider Emergency Medicine; PCP Internal Medicine Adolescent Medicine
DX: K74.60 Unspecified cirrhosis of liver (principal); D50.0 Iron deficiency anemia secondary to blood loss (chronic); K64.9 Unspecified hemorrhoids; K62.5 Hemorrhage of anus and rectum
CPT/HCPCS: 80053; 83605; 85025; 85610; 85730; 86850; 99284

== ENCOUNTER 2024-05-21 10:32 | Outpatient (CLI) | payer BC, SELFPAY ==
--- NOTE | 2024-05-21 10:35 | XR_ITS ---
FINAL REPORT CLINICAL HISTORY: rt forearm pain..f/u fx FINDINGS: RIGHT FOREARM 2 views of the right forearm were obtained and compared to prior exam from 04/30/2024. The previously seen splint has been removed and a cast has been applied. There is a comminuted, mildly impacted and dorsally displaced fracture of the distal radial metaphysis. There is half shaft width dorsal displacement of the distal fracture fragment. Degree of dorsal displacement is more evident than on prior exam. IMPRESSION: Interval placement of cast with further displacement of the distal radial metaphysis fracture. Reviewed, Interpreted and Dictated by Tarun Lutz MD Transcribed by Kerline Faith Authenticated and [facility]
== END 2024-05-21 23:59 | disposition home or self-care (01) ==
LOC: RAD 10:33
PROVIDERS: PCP Internal Medicine Adolescent Medicine; Visit Provider Physician Assistant Surgical
DX: M79.631 Pain in right forearm (principal); S52.501A Unspecified fracture of the lower end of right radius, initial encounter for closed fracture; S52.601A Unspecified fracture of lower end of right ulna, initial encounter for closed fracture
CPT/HCPCS: 73090

== ENCOUNTER 2024-06-01 19:23 | Inpatient (IN) | payer BC, SELFPAY ==
[2024-06-01] VITALS (17 sets, daily range): BP systolic 95–122; BP diastolic 47–69; PULSE 77–96; RESP 12–21; TEMP 36.8–37.7; O2SAT 95–100; BMI 19.1
--- NOTE | 2024-06-01 19:34 | PC.NURSE ---
Pt awake alert and oriented Skin pale warm and dry REsp full and easy Speech clear and appropriate Report given to Elena GODINEZ
[2024-06-01 19:43] LABS: Basophils % 0.4 % (0.1-2.0); Eosinophils # 0.1 K/mm3 (0.0-0.4); Eosinophils % 1.7 % (0.1-12.0); Lymphocytes # 0.8 K/mm3 (0.7-4.5); Lymphocytes % 16.8 % (10-50); Mean Corpuscular HGB Conc 29.3 g/dL (31.8-35.4); Mean Corpuscular Hemoglobin 23.2 pg (27.0-31.2); Mean Corpuscular Volume 79.1 fl (81-99); Monocytes # 0.2 K/mm3 (0.1-1.0); Neutrophils # 3.6 K/mm3 (1.8-7.8); Neutrophils % 75.9 % (37.0-80.0); Platelet Count 135 K/mm3 (142-424); Red Blood Count 2.11 M/mm3 (4.20-5.40); Red Cell Distribution Width 20.2 % (11.5-17.5); White Blood Count 4.8 K/mm3 (4.8-10.8)
[2024-06-01 19:45] LABS: Hematocrit 16.7 % (37.0-47.0)
[2024-06-01 19:48] LABS: Hemoglobin 4.9 g/dL (12.2-16.2)
[2024-06-01 19:51] LABS: Albumin Level 3.2 g/dl (3.5-5.0); Chloride 101 mmol/L (98-107)
[2024-06-01 19:52] LABS: Potassium 3.7 mmoL/L (3.5-5.1); Sodium 134 mmol/L (136-145)
[2024-06-01 19:54] LABS: Alanine Aminotransferase 19 U/L (12-78); Alkaline Phosphatase 154 U/L (38-126); Anion Gap 2.7 mEq/L (5-15); Aspartate Amino Transferase 40 U/L (14-36); Bilirubin,Total 0.9 mg/dl (0.2-1.3); Blood Urea Nitrogen 10 mg/dl (7-17); Carbon Dioxide 34 mmol/L (22.0-30.0); Creatinine Clearance Estimated 47 mL/min (50-200); Estimated Glomerular Filt Rate 101 ml/min (>60); GFR (African American) 122 ML/MIN (>60)
[2024-06-01 19:55] LABS: Albumin/Globulin Ratio 0.8 (1.1-1.8); Calcium 8.3 mg/dl (8.4-10.2); Globulin 3.8 g/dL (1.3-3.2); Glucose 100 mg/dl (74-100); Lipase 171 U/L (23-300); Magnesium 1.6 mg/dl (1.6-2.3)
--- NOTE | 2024-06-01 19:59 | ED_ITS ---
<Statement entered by Tiara De La O DO - 06/02/24 00:19> I was consulted by the DARON, and we discussed the complexity of the problems being addressed. I approved the treatment and management plan for this patient's care in the emergency department, thus performing a substantive portion of the medical decision making. Patient is a known cirrhotic with chronic anemia, she has chronic losses of blood from hemorrhoids and also does have a history of esophageal varices, though she does not note any clinically significant bleeding at this time. I evaluated her myself 05/13/2024, at which point she had hemorrhoids that had bled but then abruptly stopped. Hemoglobin at that time was stable, she no longer had active bleeding. Given this, she was discharged home. Today she presents for shortness of breath, lightheadedness, lower extremity edema and concerns her blood counts are low again. She was found to have profound anemia with a hemoglobin less than 6. She is hemodynamically stable, so I feel this is likely worsening of her chronic anemia as opposed to acute hemorrhagic shock/blood loss. It is felt the patient is appropriate for admission for resuscitation and transfusion. Transfusion process was initiated in the emergency department. Patient was admitted in stable condition for further evaluation and management of acute on chronic anemia after interactive discussion with the hospitalist Tiara De La O DO Discharge Plan Disposition Patient Disposition: Admitted Condition: Fair Clinical Impressions Clinical Impression: Anemia Discharge ED Provider: Tiara De La O General Adult HPI <Audra Teagan (ED), [employer]IVE SALES MANAGER - Last Filed: 06/01/24 22:20> General Chief complaint: Abdominal Pain Stated complaint: light headed , legs swelling Time Seen by Provider: 06/01/24 19:36 Mode of Arrival: Ambulatory Source of Information: Patient Description of Symptoms (Recalled from ER Triage Doc. by RN): Pt states she has had dizziness and leg swelling with associated generalized weakness History of Present Illness HPI narrative: This is a 63-year-old female who presents today for complaint of being lightheaded for the last month. She states that she has edema bilateral lower extremities as well. She does take Bumex and spironolactone. She does have a history of chronic anemia, rectal bleeding which stopped 2 weeks ago. She also has cirrhosis. She has no vomiting today. She did go to [facility] when she fell and broke her arm back on 24 April. On the her hemoglobin was 4.1. She had a transfusion and after that transfusion her hemoglobin was 7.7. She has good record and on after lab work she had an 8.1 hemoglobin on 01 May she went to the ER and had 1 unit of blood and she had 7.8 hemoglobin. On she had labs and her hemoglobin was 8.9. Related Data Home Medications ?Medication ?Instructions ?Recorded ?Confirmed lactulose 10 gram/15 mL oral 10 g PO DAILY CIRRHOSIS 11/06/17 05/21/24 solution oxycodone 5 mg capsule mg PO 04/30/24 05/21/24 Previous Rx's ?Medication ?Instructions ?Recorded diclofenac sodium 1 % topical gel 2 g topical QID #100 grams 06/27/23 (Voltaren Arthritis Pain) hydrocortisone acetate 25 mg 25 mg MN DAILY 2 weeks #24 ea 05/13/24 rectal suppository (Anusol-HC) tramadol 50 mg tablet 50 mg PO Q8H PRN fracture pain #40 05/21/24 tabs Allergies Allergy/AdvReac Type Severity Reaction Status Date / Time No Known Allergies Allergy Verified 04/30/24 11:16 PFS <Audra Candelaria (ED), [employer]EC[employer]IVE SALES MANAGER - Last Filed: 06/01/24 22:20> PFS Disclaimer: The information contained in this section may have been updated after the patient was seen, as this information can be updated by other users. Medical History Osteoporosis Liver disease Arthritis Valvular heart disease Vocal cord nodule Hx of esophageal varices banded Surgical History Hx of esophagogastroduodenoscopy H/O colonoscopy H/O section Family History Other Family history of Alzheimer's disease Family history of cancer Family history of diabetes mellitus type II Family history of stroke Social History Smoking Status: Never smoker alcohol intake: never substance use type: denies use current occupational status: employed and other Travel in the last 8 weeks: None household members: significant other housing: house caffeine: No Have you lived/traveled outside [place] in past 30 days?: No Contact w/someone who lives/traveled outside US past 30 days?: No Exposure to someone with infectious disease in past 14 days?: No Do you have a fever (greater than 100.4 F or 38 C)?: No Have you tested positive for COVID-19: No Exposed to someone with COVID-19 in past 14 days?: No Do you have a sore throat?: No Do you have a cough?: No Do you have any weakness?: No Do you have any diarrhea?: No Are you experiencing any unusual bleeding?: No Do you have any muscle aches/pain?: No Do you have any abdominal pain?: No Are you experiencing loss of taste or smell?: No Other Medical History Have you received the Flu Vaccine for this season: Yes Have you received the Pneumonia Vaccine: No <Audra Candelaria (ED), [employer]EC[employer]IVE SALES MANAGER - Last Filed: 06/01/24 22:20> ROS Obtained: Yes Systems reviewed as appropriate & no additional complaints except as documented Constitutional Constitutional: Reports as per HPI Physical Exam <Audra Candelaria (ED), EXEC[employer]IVE SALES MANAGER - Last Filed: 06/01/24 22:20> General General appearance: alert Head Head exam: atraumatic and normocephalic Eye Eye exam: Present normal appearance, PERRL and EOMI ENT ENT exam: Present mucous membranes moist Respiratory Respiratory exam: Present normal lung sounds bilaterally Cardiovascular Cardiovascular exam: Present regular rate, normal rhythm, normal heart sounds, +S1 and +S2 Abdominal Exam Abdominal exam: Present soft and normal bowel sounds Extremities Exam Extremities exam: Present full ROM and edema (Bilateral lower extremities with edema) Neurological Exam Neurological exam: Present alert and oriented X3 Skin Skin exam: Present warm, dry and intact Medical Decision Making <Audra Candelaria (ED), EXEC[employer]IVE SALES MANAGER - Last Filed: 06/01/24 22:20> Medical Records Screening: Per USPSTF and CDC recommendations, given the prevalence of disease in our region, it is our hospital?s policy to screen for HIV and viral Hepatitis for all patients aged 18 and over and those with ongoing risk factors. Rufino Inquiry Pt receiving controlled substance: No Rufino was queried for this patient: No Vital Signs: 06/01/24 19:30 06/01/24 20:00 06/01/24 20:13 Temperature 99.4 F Temperature Source Oral Pulse Rate 81 90 Pulse Rate [Right Brachial] 78 Respiratory Rate 20 21 12 TAR Vitals Timing Blood Pressure 99/59 L 115/52 L Blood Pressure [Right Arm] 116/69 Blood Pressure Mean Blood Pressure Mean [Right Arm] 84 Blood Pressure Source Blood Pressure Position 02 Sat by Pulse Oximetry 100 99 99 Oxygen Delivery Method Room Air Room Air 06/01/24 20:30 06/01/24 20:45 06/01/24 21:00 Temperature Temperature Source Pulse Rate 86 81 85 Pulse Rate [Right Brachial] Respiratory Rate 20 14 12 TAR Vitals Timing Blood Pressure 110/55 L 95/51 L Blood Pressure [Right Arm] Blood Pressure Mean Blood Pressure Mean [Right Arm] Blood Pressure Source Blood Pressure Position 02 Sat by Pulse Oximetry 96 97 97 Oxygen Delivery Method 06/01/24 21:15 06/01/24 21:28 06/01/24 21:28 Temperature 99 F 99.0 F Temperature Source Oral Oral Pulse Rate 89 81 81 Pulse Rate [Right Brachial] Respiratory Rate 14 16 16 TAR Vitals Timing Pre-Blood Vitals Blood Pressure 95/51 L 95/51 L Blood Pressure [Right Arm] Blood Pressure Mean 65 Blood Pressure Mean [Right Arm] Blood Pressure Source Automatic Cuff Automatic Cuff Blood Pressure Position Supine 02 Sat by Pulse Oximetry 100 100 Oxygen Delivery Method Room Air Lab Data Lab Results 06/01/24 19:36: WBC 4.8, RBC 2.11 L, Hgb 4.9 L*, Hct 16.7 L*, MCV 79.1 L, MCH 23.2 L, MCHC 29.3 L, RDW 20.2 H, Plt Count 135 L, MPV 10.0, Neut % (Auto) 75.9, Lymph % (Auto) 16.8, [place] % (Auto) 5.0, Eos % (Auto) 1.7, Baso % (Auto) 0.4, Neut # (Auto) 3.6, Lymph # (Auto) 0.8, [place] # (Auto) 0.2, Eos # (Auto) 0.1, Baso # (Auto) 0.0, PT 11.0, INR 0.98, APTT 23.6, Sodium 134 L, Potassium 3.7, Chloride 101, Carbon Dioxide 34 H, Anion Gap 2.7 L, BUN 10, Creatinine 0.60, Estimated Creat Clear 47, Estimated GFR 101, Est GFR ( Amer) 122, Glucose 100, Calcium 8.3 L, Magnesium 1.6, Total Bilirubin 0.9, AST 40 H, ALT 19, A lkaline Phosphatase 154 H, Total Protein 7.0, Albumin 3.2 L, Globulin 3.8 H, A lbumin/Globulin Ratio 0.8 L, Lipase 171 06/01/24 19:58: Blood Type Cancelled 06/01/24 19:58: Blood Type A Positive, Antibody Screen Cancelled 06/01/24 19:58: Antibody Screen Negative, Crossmatch ([facility]) See Detail 06/01/24 19:58: Crossmatch ([facility]) See Detail 06/01/24 19:36 06/01/24 19:36 Orders (Tests/Meds): ED MEDICATIONS Generic Name Dose Route Start Last Admin Trade Name Freq PRN Reason Stop Dose Admin Acetaminophen 650 mg 06/01/24 21:33 Acetaminophen 325mg Tab PO 07/01/24 21:32 Q4HP PRN Fever or Mild Pain (1-3) Famotidine 20 mg 06/01/24 21:40 Famotidine 20mg/2ml Vial IV 07/01/24 21:39 BID DORINA Sodium Chloride 250 mls @ 25 mls/hr 06/01/24 20:00 Sod Chlor 0.9% 250ml Bag IV 06/02/24 19:59 .Q10H DORINA Sodium Chloride 250 mls @ 25 mls/hr 06/01/24 20:30 Sod Chlor 0.9% 250ml Bag IV 06/02/24 20:29 .Q10H DORINA Sodium Chloride 1,000 mls @ 75 mls/hr 06/01/24 21:45 Sod Chlor 0.9% 1000ml Bag IV 07/01/24 21:44 .[id number] DORINA Ondansetron HCl 4 mg 06/01/24 21:33 Ondansetron 4mg/2ml Vial IV 07/01/24 21:32 Q8HP PRN Nausea Sodium Chloride 10 ml 06/01/24 21:33 Sodium Chloride 0.9% 10ml Flush Syringe IV 07/01/24 21:32 NEEDED PRN Maintain IV Site Sodium Chloride 8 ml 06/01/24 21:33 Sodium Chloride 0.9% 10ml Vial IV 07/01/24 21:32 NEEDED PRN dilute famotidine ORDERS Category Date Time Status Red Blood Cells Routine BBK 06/01/24 19:58 Results Type and Screen Routine K 06/01/24 19:58 Results CBC [Complete Blood Count Auto Diff] Stat Lab 06/01/24 19:36 Completed Comprehensive Metabolic Panel Stat Lab 06/01/24 19:36 Completed HIV Combo Routine Lab 06/01/24 15:36 Received Hepatitis C Ab Qual. W/ RFX Routine Lab 06/01/24 15:36 Received Lipase Stat Lab 06/01/24 19:36 Completed Magnesium Stat Lab 06/01/24 19:36 Completed PT INR [Prothrombin Time INR] Stat Lab 06/01/24 19:36 Completed PTT [Activated Partial Thrombo Time] Stat Lab 06/01/24 19:36 Completed Medical Decision Narrative: Insert review patient is a 63-year-old female presenting to the emergency department for evaluation of anemia, lightheaded. Patient is pale with slightly hypotensive blood pressure. Differential diagnosis includes anemia. Workup will be conducted with hematologic labs. Initial workup reviewed by me the H&H was 4.1 and 16. Formal imaging has not resulted yet at 2132. <Tiara De La O, DO - Last Filed: 06/01/24 20:19> Vital Signs: 06/01/24 19:30 06/01/24 20:00 06/01/24 20:13 Temperature 99.4 F Temperature Source Oral Pulse Rate 81 90 Pulse Rate [Right Brachial] 78 Respiratory Rate 20 21 12 TAR Vitals Timing Blood Pressure 99/59 L 115/52 L Blood Pressure [Right Arm] 116/69 Blood Pressure Mean Blood Pressure Mean [Right Arm] 84 Blood Pressure Source Blood Pressure Position 02 Sat by Pulse Oximetry 100 99 99 Oxygen Delivery Method Room Air Room Air 06/01/24 20:30 06/01/24 20:45 06/01/24 21:00 Temperature Temperature Source Pulse Rate 86 81 85 Pulse Rate [Right Brachial] Respiratory Rate 20 14 12 TAR Vitals Timing Blood Pressure 110/55 L 95/51 L Blood Pressure [Right Arm] Blood Pressure Mean Blood Pressure Mean [Right Arm] Blood Pressure Source Blood Pressure Position 02 Sat by Pulse Oximetry 96 97 97 Oxygen Delivery Method 06/01/24 21:15 06/01/24 21:28 06/01/24 21:28 Temperature 99 F 99.0 F Temperature Source Oral Oral Pulse Rate 89 81 81 Pulse Rate [Right Brachial] Respiratory Rate 14 16 16 TAR Vitals Timing Pre-Blood Vitals Blood Pressure 95/51 L 95/51 L Blood Pressure [Right Arm] Blood Pressure Mean 65 Blood Pressure Mean [Right Arm] Blood Pressure Source Automatic Cuff Automatic Cuff Blood Pressure Position Supine 02 Sat by Pulse Oximetry 100 100 Oxygen Delivery Method Room Air Lab Data Lab Results 06/01/24 19:36: WBC 4.8, RBC 2.11 L, Hgb 4.9 L*, Hct 16.7 L*, MCV 79.1 L, MCH 23.2 L, MCHC 29.3 L, RDW 20.2 H, Plt Count 135 L, MPV 10.0, Neut % (Auto) 75.9, Lymph % (Auto) 16.8, [place] % (Auto) 5.0, Eos % (Auto) 1.7, Baso % (Auto) 0.4, Neut # (Auto) 3.6, Lymph # (Auto) 0.8, [place] # (Auto) 0.2, Eos # (Auto) 0.1, Baso # (Auto) 0.0, PT 11.0, INR 0.98, APTT 23.6, Sodium 134 L, Potassium 3.7, Chloride 101, Carbon Dioxide 34 H, Anion Gap 2.7 L, BUN 10, Creatinine 0.60, Estimated Creat Clear 47, Estimated GFR 101, Est GFR ( Amer) 122, Glucose 100, Calcium 8.3 L, Magnesium 1.6, Total Bilirubin 0.9, AST 40 H, ALT 19, A lkaline Phosphatase 154 H, Total Protein 7.0, Albumin 3.2 L, Globulin 3.8 H, A lbumin/Globulin Ratio 0.8 L, Lipase 171 06/01/24 19:58: Blood Type Cancelled 06/01/24 19:58: Blood Type A Positive, Antibody Screen Cancelled 06/01/24 19:58: Antibody Screen Negative, Crossmatch ([facility]) See Detail 06/01/24 19:58: Crossmatch ([facility]) See Detail Orders (Tests/Meds): ED MEDICATIONS Generic Name Dose Route Start Last Admin Trade Name Freq PRN Reason Stop Dose Admin Acetaminophen 650 mg 06/01/24 21:33 Acetaminophen 325mg Tab PO 07/01/24 21:32 Q4HP PRN Fever or Mild Pain (1-3) Famotidine 20 mg 06/01/24 21:40 Famotidine 20mg/2ml Vial IV 07/01/24 21:39 BID DORINA Sodium Chloride 250 mls @ 25 mls/hr 06/01/24 20:00 Sod Chlor 0.9% 250ml Bag IV 06/02/24 19:59 .Q10H DORINA Sodium Chloride 250 mls @ 25 mls/hr 06/01/24 20:30 Sod Chlor 0.9% 250ml Bag IV 06/02/24 20:29 .Q10H DORINA Sodium Chloride 1,000 mls @ 75 mls/hr 06/01/24 21:45 Sod Chlor 0.9% 1000ml Bag IV 07/01/24 21:44 .[id number] DORINA Ondansetron HCl 4 mg 06/01/24 21:33 Ondansetron 4mg/2ml Vial IV 07/01/24 21:32 Q8HP PRN Nausea Sodium Chloride 10 ml 06/01/24 21:33 Sodium Chloride 0.9% 10ml Flush Syringe IV 07/01/24 21:32 NEEDED PRN Maintain IV Site Sodium Chloride 8 ml 06/01/24 21:33 Sodium Chloride 0.9% 10ml Vial IV 07/01/24 21:32 NEEDED PRN dilute famotidine ORDERS Category Date Time Status Red Blood Cells Routine K 06/01/24 19:58 Results Type and Screen Routine K 06/01/24 19:58 Results CBC [Complete Blood Count Auto Diff] Stat Lab 06/01/24 19:36 Completed Comprehensive Metabolic Panel Stat Lab 06/01/24 19:36 Completed HIV Combo Routine Lab 06/01/24 15:36 Received Hepatitis C Ab Qual. W/ RFX Routine Lab 06/01/24 15:36 Received Lipase Stat Lab 06/01/24 19:36 Completed Magnesium Stat Lab 06/01/24 19:36 Completed PT INR [Prothrombin Time INR] Stat Lab 06/01/24 19:36 Completed PTT [Activated Partial Thrombo Time] Stat Lab 06/01/24 19:36 Completed ECG Data Tracing #1: I reviewed this ECG and interpreted as documented below: Normal sinus rhythm with a ventricular of [address] changes concerning for ischemia. Normal intervals ECG initial impression date: 06/01/24 ECG initial impression time: 19:53 Critical Care <Audra Candelaria (ED), EXECUTIVE SALES MANAGER - Last Filed: 06/01/24 22:20> Critical Care Time Critical Care Time: No
[2024-06-01 20:02] LABS: Activated Partial Thrombo Time 23.6 seconds (22.8-30.6); INR 0.98 (0.9-1.1)
--- NOTE | 2024-06-01 21:18 | PC.NURSE ---
HERBERT Black unable to take report at this time
[2024-06-01] MEDS: 0.9 % SODIUM CHLORIDE 250 ML 25 ML IV (21:30)
[2024-06-01 22:47] LABS: HIV Combo NEGATIVE (Negative)
[2024-06-01 22:55] LABS: Hepatitis C Ab Qual. W/ RFX NEGATIVE (Negative)
[2024-06-01 23:07] LABS: Reticulocyte % (Auto) 3.1 % (0.9-3.2)
--- NOTE | 2024-06-01 23:13 | P.HP_ITS ---
<Statement entered by Nabil Gamino MD - 06/02/24 16:18> Rounded on patient after nurse practitioner. Personally examined and interviewed patient. Agree with exam findings and care plan as documented. History of Present Illness *Admission Date: 06/01/24 *Reason for visit:: Chronic severe anemia requiring blood transfusion *History of present illness: This 63-year-old female MsLizy Leblanc. Has received multiple transfusions for the past 4 to 5 years.. Patient has returned today with a hemoglobin of 4.8.. Patient notes a recent history of yesterday for about 20 minutes her vision was extremely blurred but this has returned and the symptoms have not reoccurred. She states this is the first time that has ever happened to her. Patient has been seen by the emergency room provider. 2 units of blood have been ordered with a 3rd unit on hold. I do agree that we need to have the lady admitted and to give her 2 units of blood.. In reviewing history with the patient there really has been no clear cause: she has had positive blood in stool in the p ast.. But then states that she has been scoped from top to bottom and nothing has been found. But then on 1 CT scan showed potential area of bleeding from the lesion in the small bowel . Per office notes at times patient has not followed up. So it is unclear as to if a bone marrow biopsy was ever done. Or if this is being considered strictly loss through the GI tract. Noting that the patient does use dentures. Top and bottom and she does use a generic denture adhesive that contains zinc. So we will add in a zinc and copper level to make sure this is not related to zinc toxicity. This is also supported by some of her notes she has mentioned having numbness to her hands to rule out zinc toxicity. Patient also noted feeling dizzy for the last several weeks part of the reason she fell requiring a cast on her right arm. also will add reticulocyte count to see if the bone marrow is making new red blood cell. Also patient is noted with a history of hepatitis with an pancreas stranding . Also noting that the liver is enlarged and the spleen is enlarged on CT scans from and alkaline phosphatase has remained elevated for 6 years. Liver functions AST ALT slightly elevated but not to a level that I would expect to see as cirrhosis. Patient also noted that her lower extremities are starting to get edema nonpitting. also noting in the patient's history she has broken both forearm, will add PTH labs as patient may need bone mineral density testing in the future if fractures continue. Calcium blood levels have brain remained normal on past testing. This CT of esophagus 2021 showed Mediastinal space: Visualized distal esophagus demonstrates moderate-severe submucosal varices which are progressed/increased since 2019. Submucosal . Plan to stabilize by given the 2 units of blood rechecking blood level may give third.. Depending on the patient's stability may need CT scan to evaluate GI source of bleeding. Depending upon her lab work return., May require general surgery consult versus gastrology consult to evaluate the source of bleeding. May need further care if no clear source is found of bone marrow biopsy rule out melanoma or nonfunctioning bone marrow. Was not able to establish a full course of workup that had been consistently followed through by the patient. Addendum: Reticulocyte count came back at 3.5 this would indicate that the bone marrow is reacting to the need to produce more red blood cells. And patient updated nursing staff that she had a GI appointment on June 25. She made this a while back but this was the earliest she could be seen. [facility] Disclaimer: The information contained in this section may have been updated after the patient was seen, as this information can be updated by other users. Medical History (Updated 06/02/24 @ 10:21 by Nabil Gamino MD) Closed fracture of left radius with malunion Osteoporosis Liver disease Arthritis Valvular heart disease Vocal cord nodule Hx of esophageal varices Surgical History Hx of esophagogastroduodenoscopy H/O colonoscopy H/O section Family History Other Family history of Alzheimer's disease Family history of cancer Family history of diabetes mellitus type II Family history of stroke Social History Smoking Status: Never smoker alcohol intake: never substance use type: denies use current occupational status: employed and other Travel in the last 8 weeks: None household members: significant other housing: house caffeine: No Have you lived/traveled outside [place] in past 30 days?: No Contact w/someone who lives/traveled outside US past 30 days?: No Exposure to someone with infectious disease in past 14 days?: No Do you have a fever (greater than 100.4 F or 38 C)?: No Have you tested positive for COVID-19: No Exposed to someone with COVID-19 in past 14 days?: No Do you have a sore throat?: No Do you have a cough?: No Do you have any weakness?: No Do you have any diarrhea?: No Are you experiencing any unusual bleeding?: No Do you have any muscle aches/pain?: No Do you have any abdominal pain?: No Are you experiencing loss of taste or smell?: No Other Medical History Have you received the Flu Vaccine for this season: No Have you received the Pneumonia Vaccine: Yes (allergic reaction) Review of Systems Review of Systems Review of systems:: pertinent systems reviewed and negative unless documented below Review of systems (narrative): The patient is quite stable at this time fun to talk with. She gives a good story good history as to about her bleeding but not to how she has been treated in her follow-up. Constitutional Constitutional: Reports as per HPI and Reports frequent falls Comments: Patient notes that her weights are right around 120 225 and has been fairly stable, noting history of fractured forearms in the last 2 years Eyes Eyes: Reports as per HPI and Reports blurry vision Comments: Patient reported an episode of blurry vision but presently at normal level ENT Ears, Nose, Mouth, and Throat: Reports as per HPI Comments: Patient denies any problems with swallowing or drinking fluids *Cardiovascular Cardiovascular: Reports as per HPI *Respiratory Respiratory: Reports as per HPI *Gastrointestinal Gastrointestinal: Reports melena Comments: Patient denies abdominal pain or constipation, noting sometimes her stools are blackish but other times color is perfectly normal *Genitourinary Genitourinary: Reports as per HPI *Musculoskeletal Musculoskeletal: Reports as per HPI Comments: Patient presently has cast on right forearm Integumentary/Breasts Skin/Breast: Reports as per HPI *Neurologic Neurologic: Reports as per HPI and Reports frequent falls Psychiatric Psychiatric: Reports as per HPI Endocrine Endocrine: Reports as per HPI Hematologic/Lymphatic Hematologic/Lymphatic: Reports as per HPI Allergic/Immunologic Allergic/Immunologic: Reports as per HPI Meds Home Medications and Allergies Home Medications ?Medication ?Instructions ?Recorded ?Confirmed ?Type bumetanide 0.5 mg tablet 0.5 mg PO DAILYP PRN Edema 06/02/24 06/02/24 History tramadol 50 mg tablet 50 mg PO Q8HP PRN Moderate Pain 06/02/24 06/02/24 History (Scale Score 5-6) New Prescriptions to Start Prescriptions: Allergies Allergy/AdvReac Type Severity Reaction Status Date / Time No Known Allergies Allergy Verified 04/30/24 11:16 Exam Data for Last 24 hours Vital signs and Labs for Last 24 Hours: Temp Pulse Resp BP Pulse Ox O2 Del Method 99.1 F 79 18 99/47 L 96 Room Air 06/01/24 22:40 06/01/24 22:40 06/01/24 22:40 06/01/24 22:40 06/01/24 22:40 06/01/24 21:40 Laboratory Results - last 24 hr 06/01/24 15:36: HCV Ab NOE w/Rflx PCR Qn Negative, HIV Ag/Ab Combo Qual Negative 06/01/24 19:36: WBC 4.8, RBC 2.11 L, Hgb 4.9 L*, Hct 16.7 L*, MCV 79.1 L, MCH 23.2 L, MCHC 29.3 L, RDW 20.2 H, Plt Count 135 L, MPV 10.0, Neut % (Auto) 75.9, Lymph % (Auto) 16.8, Nicholas % (Auto) 5.0, Eos % (Auto) 1.7, Baso % (Auto) 0.4, Neut # (Auto) 3.6, Lymph # (Auto) 0.8, Nicholas # (Auto) 0.2, Eos # (Auto) 0.1, Baso # (Auto) 0.0, Retic Count (auto) 3.1, PT 11.0, INR 0.98, APTT 23.6, Sodium 134 L , Potassium 3.7, Chloride 101, Carbon Dioxide 34 H, Anion Gap 2.7 L, BUN 10, Creatinine 0.60, Estimated Creat Clear 47, Estimated GFR 101, Est GFR ( Amer) 122, Glucose 100, Calcium 8.3 L, Magnesium 1.6, Total Bilirubin 0.9, AST 40 H, ALT 19, Alkaline Phosphatase 154 H, Total Protein 7.0, Albumin 3.2 L, Globulin 3.8 H, Albumin/Globulin Ratio 0.8 L, Lipase 171 06/01/24 19:58: Blood Type Cancelled 06/01/24 19:58: Blood Type A Positive, Antibody Screen Cancelled 06/01/24 19:58: Antibody Screen Negative, Crossmatch (AHG) See Detail 06/01/24 19:58: Crossmatch (AHG) See Detail I & O for Last 24 hours: Intake & Output 05/30/24 05/31/24 06/01/24 06/02/24 05:59 05:59 05:59 05:59 Intake Total 0 / 0 Balance 0 / 0 Weight 115 lb Radiology Reports for the Last 24 Hours: None done during this visit Constitutional Constitutional: mild distress Comments: The patient is quite pale, but is alert and oriented *Routine HEENT Exam Head: Present normocephalic and atraumatic Eye: Present EOMI, PERRL, normal accommodation and other (Inside of the lower eyelids extremely pale) ENT: Present mucous membranes moist and external ear normal Comments: Has upper and lower dentures *Routine Neck Exam Neck: Present supple and full ROM Routine Chest/Breast/Axilla Exam Comments: Patient reported no neck or chest wall pain *Routine Respiratory Exam Respiratory: Present CTA bilaterally, normal respiratory effort, able to speak in complete sentences and symmetric chest movement *Routine Cardiovascular Exam Cardiovascular: Present Normal S1 and Normal S2 Comments: No edema in lower extremities *Routine Abdominal Exam Abdominal: Present soft Comments: Abdomen soft no guarding no organomegaly felt able to palpate without pain *Routine Rectal Exam Rectal:: deferred *Routine Genitalia Exam Genitalia:: deferred *Routine Extremities Exam Extremities: Present full ROM Comments: Patient is able to move all extremities there is no joint dysfunction that is obvious Routine Back/Spine/Pelvis Exam Back/Spine: Present full ROM Comments: Patient does not have any back pain at this time she is able to sit move twist without any difficulty or signs of discomfort *Routine Skin Exam Skin: Present dry, pallor, warm and normal turgor *Routine Neurological Exam Neurological: Present alert, oriented X3, CN II-XII intact, normal tone, vision grossly intact, hearing grossly intact and normal speech Comments: Evaluating patient's vision she reports that she is able to see as she normally does there is no blurring at this time Routine Psychiatric Exam Psychiatric: Present normal affect, normal thought process, cooperative, good insight and good judgment Comments: Patient is friendly and easy to talk with family in room H&P: Result Impressions 1. Critical anemia requiring blood transfusion 2. Long history of blood loss with blood in stool and esophageal diverticulum. Assessment and Plan *Assessment and plan (1) Anemia: Status: Acute Qualifiers: Anemia type: unspecified type Qualified Code(s): D64.9 - Anemia, unspecified Category: Medical Code(s): D64.9 - Anemia, unspecified (2) Cirrhosis: Status: Acute Qualifiers: Ascites presence: without ascites Hepatic cirrhosis type: unspecified hepatic cirrhosis Qualified Code(s): K74.60 - Unspecified cirrhosis of liver Category: Medical Code(s): K74.60 - Unspecified cirrhosis of liver (3) Peripheral edema: Status: Acute Category: Medical Code(s): R60.0 - Localized edema (4) Vertigo: Status: Acute Category: Medical Code(s): R42 - Dizziness and giddiness (5) Closed fracture of right distal radius and ulna: Status: Acute Qualifiers: Encounter type: subsequent encounter Fracture healing: with routine healing Qualified Code(s): S52.501D - Unspecified fracture of the lower end of right radius, subsequent encounter for closed fracture with routine healing; S52.601D - Unspecified fracture of lower end of right ulna, subsequent encounter for closed fracture with routine healing Category: Medical Code(s): S52.501A - Unspecified fracture of the lower end of right radius, initial encounter for closed fracture; S52.601A - Unspecified fracture of lower end of right ulna, initial encounter for closed fracture (6) Gastric varices: Status: Acute Category: Medical Code(s): I86.4 - Gastric varices Plan 63-year-old female with cirrhosis and history of varices who presents with anemia. Concern for possible GI bleed. Hemodynamically stable. Case discussed with ER physician, request admission for transfusion and further workup with GI. Medicine agreed to admit for further care. Transfusing overnight. Problems addressed as follows: Acute on chronic blood loss anemia Cirrhosis Gastric varices -Initial hemoglobin 4.6, transfusing 2 units. Will monitor response. Repeat hemoglobin/hematocrit 2 hours after transfusion. Kidney function normal. BUN not elevated. No active bloody bowel movements or bright red blood per rectum or hematemesis. -Initiate pantoprazole IV -Will consult GI for further evaluation -Goal sats greater 90%, currently on room air. -History of gastric variceal banding 3 years ago. Patient started taking NSAIDs recently with a fractured wrist, differential includes gastric varices, PUD, diverticular bleed, hemorrhoids. Patient appears compensated even with her severe anemia. -Consider CT abdomen pelvis with contrast if develops bleeding to evaluate for potential source. - Iron studies obtained, iron level of 307 which is high, saturation 80% which is high. Liver enzymes normal with her cirrhosis. Bilirubin 3.7 but AST and ALT are 28 and 17 respectively. Albumin 2.5. INR 0.9 -MELD score 11 -Right upper quadrant ultrasound ordered for the morning -Given elevated iron levels, will obtain screening for hemochromatosis. Full code Anticoagulation contraindicated Clear liquid diet, n.p.o. at midnight for GI eval Monday morning
[2024-06-02] VITALS (24 sets, daily range): BP systolic 93–120; BP diastolic 42–84; PULSE 71–91; RESP 16–18; TEMP 36.6–37.8; O2SAT 94–100; BMI 19.1
[2024-06-02] MEDS: 0.9 % SODIUM CHLORIDE 250 ML 25 ML IV ×2 (00:10→06:00)
[2024-06-02] MEDS: 0.9 % SODIUM CHLORIDE 1000ML 1,000 ML 75 ML IV (04:15)
[2024-06-02] MEDS: FAMOTIDINE 20MG/2ML VIAL 20 MG IV (04:18)
[2024-06-02] MEDS: SODIUM CHLORIDE 0.9% 10ML FLUSH SYRINGE 10 ML IV (04:19)
[2024-06-02 05:13] LABS: Basophils % 0.7 % (0.1-2.0); Eosinophils # 0.1 K/mm3 (0.0-0.4); Eosinophils % 2.2 % (0.1-12.0); Lymphocytes # 0.6 K/mm3 (0.7-4.5); Lymphocytes % 12.3 % (10-50); Mean Corpuscular HGB Conc 31.3 g/dL (31.8-35.4); Mean Corpuscular Hemoglobin 25.3 pg (27.0-31.2); Mean Corpuscular Volume 80.8 fl (81-99); Mean Platelet Volume 10.3 fl (7.4-10.4); Monocytes # 0.3 K/mm3 (0.1-1.0); Monocytes % 6.1 % (1.7-9.3); Neutrophils # 3.6 K/mm3 (1.8-7.8); Neutrophils % 78.3 % (37.0-80.0); Platelet Count 112 K/mm3 (142-424); Red Blood Count 2.45 M/mm3 (4.20-5.40); Red Cell Distribution Width 17.8 % (11.5-17.5); White Blood Count 4.6 K/mm3 (4.8-10.8)
[2024-06-02 05:19] LABS: Hematocrit 19.7 % (37.0-47.0); Hematocrit 19.8 % (37.0-47.0); Hemoglobin 6.2 g/dL (12.2-16.2)
[2024-06-02 05:20] LABS: Iron 307 ug/dL (37-170)
[2024-06-02 05:21] LABS: Alanine Aminotransferase 17 U/L (12-78); Albumin Level 2.5 g/dl (3.5-5.0); Albumin/Globulin Ratio 0.8 (1.1-1.8); Alkaline Phosphatase 99 U/L (38-126); Anion Gap 6.8 mEq/L (5-15); Aspartate Amino Transferase 28 U/L (14-36); Bilirubin,Total 3.7 mg/dl (0.2-1.3); Blood Urea Nitrogen 10 mg/dl (7-17); Calcium 8.5 mg/dl (8.4-10.2); Carbon Dioxide 25 mmol/L (22.0-30.0); Chloride 104 mmol/L (98-107); Creatinine Clearance Estimated 47 mL/min (50-200); Estimated Glomerular Filt Rate 101 ml/min (>60); GFR (African American) 122 ML/MIN (>60); Globulin 3.2 g/dL (1.3-3.2); Glucose 113 mg/dl (74-100); Lactic Acid 1.4 mmol/L (0.7-2.1); Magnesium 1.8 mg/dl (1.6-2.3); Potassium 3.8 mmoL/L (3.5-5.1); Sodium 132 mmol/L (136-145); Total Protein,Serum 5.7 g/dl (6.3-8.2)
[2024-06-02 05:29] LABS: Total Iron Binding Capacity 380 ug/dL (265-497)
--- NOTE | 2024-06-02 05:29 | EXP.EVENT.NO ---
After 2 units of blood hemoglobin remains at 6 point 2/3 unit has been ordered.
--- NOTE | 2024-06-02 07:34 | EXP.ACUTE.PN ---
Subjective *Date: 06/02/24 *Time: 16:18 Interval history: Patient alert and oriented x 3. On room air. Heart rate and blood pressure normal. Asking for something to eat. Tolerating transfusion. Denies any chest pain, abdominal pain, shortness of breath. No vomiting or diarrhea. No bowel movement since admission. Medical Exam Vital signs and Labs for Last 24 Hours: Vital Signs Temp Pulse Pulse Resp BP BP Pulse Ox 06/02/24 07:00 98.2 F 74 16 93/54 L 96 06/02/24 06:45 98.3 F 76 16 103/53 L 95 06/02/24 06:15 97.9 F 79 16 104/60 L 96 06/02/24 06:10 98.3 F 76 16 104/59 L 94 L 06/02/24 06:10 98.2 F 73 16 94/56 L 95 06/02/24 06:05 98.3 F 72 16 97/54 L 97 06/02/24 06:00 98.1 F 78 18 102/52 L 97 06/02/24 05:52 98.7 F 77 16 107/58 L 98 06/02/24 03:35 100.0 F H 91 H 18 105/84 L 96 06/02/24 02:35 99.6 F 80 18 98/50 L 95 06/02/24 02:15 99.6 F 80 18 95/52 L 95 06/02/24 02:15 99.6 F 75 18 95/52 L 96 06/02/24 01:15 99.1 F 78 18 108/51 L 100 06/02/24 01:15 99.1 F 78 18 108/51 L 100 06/02/24 01:00 99.1 F 76 18 107/58 L 100 06/02/24 00:45 98.9 F 77 18 105/55 L 97 06/02/24 00:30 99.2 F 82 18 106/60 L 100 06/02/24 00:25 99.0 F 82 18 96/42 L 98 06/02/24 00:20 98.8 F 81 18 97/49 L 98 06/02/24 00:15 98.6 F 80 18 99/47 L 99 06/02/24 00:10 98.8 F 81 18 98/43 L 98 06/01/24 23:50 98.9 F 77 97/50 L 97 06/01/24 23:39 98.9 F 80 18 96/64 L 97 06/01/24 22:45 99.1 F 79 18 99/47 L 96 06/01/24 22:40 99.1 F 79 18 99/47 L 96 06/01/24 22:25 99.2 F 78 18 110/52 L 99 06/01/24 22:10 99.1 F 82 18 109/57 L 100 06/01/24 21:55 98.8 F 80 18 106/54 L 100 06/01/24 21:50 99.9 F H 81 18 102/49 L 100 06/01/24 21:45 06/01/24 21:45 98.8 F 81 16 103/47 L 100 06/01/24 21:40 99.4 F 82 16 111/51 L 100 06/01/24 21:40 98.3 F 96 H 16 122/63 95 06/01/24 21:28 99.0 F 81 16 95/51 L 100 06/01/24 21:28 99 F 81 16 95/51 L 06/01/24 21:15 89 14 100 06/01/24 21:00 85 12 95/51 L 97 06/01/24 20:45 81 14 97 06/01/24 20:30 86 20 110/55 L 96 06/01/24 20:13 90 12 115/52 L 99 06/01/24 20:00 81 21 99/59 L 99 06/01/24 19:30 99.4 F 78 20 116/69 100 O2 Del Method 06/02/24 07:00 06/02/24 06:45 06/02/24 06:15 06/02/24 06:10 06/02/24 06:10 06/02/24 06:05 06/02/24 06:00 06/02/24 05:52 06/02/24 03:35 06/02/24 02:35 06/02/24 02:15 06/02/24 02:15 06/02/24 01:15 06/02/24 01:15 06/02/24 01:00 06/02/24 00:45 06/02/24 00:30 06/02/24 00:25 06/02/24 00:20 06/02/24 00:15 06/02/24 00:10 06/01/24 23:50 06/01/24 23:39 06/01/24 22:45 06/01/24 22:40 06/01/24 22:25 06/01/24 22:10 06/01/24 21:55 06/01/24 21:50 06/01/24 21:45 Room Air 06/01/24 21:45 06/01/24 21:40 06/01/24 21:40 Room Air 06/01/24 21:28 06/01/24 21:28 Room Air 06/01/24 21:15 06/01/24 21:00 06/01/24 20:45 06/01/24 20:30 06/01/24 20:13 06/01/24 20:00 Room Air 06/01/24 19:30 Room Air Intake and Output 06/01/24 06/01/24 06/02/24 15:59 23:59 07:59 Intake Total 250 / 250 250 / 250 Balance 250 / 250 250 / 250 Intake: Intake (Blood Product) Amt 250 / 250 250 / 250 Red Blood Cells Unit 250 / 250 [id number] Red Blood Cells Unit 250 / 250 [id number] Red Blood Cells Unit 0 / 0 [id number] Other: Weight 52.163 kg 52.163 kg Patient Weight 06/02/24 23:59 Weight 52.163 kg Laboratory Results - last 24 hr 06/01/24 15:36: HCV Ab NOE w/Rflx PCR Qn Negative, HIV Ag/Ab Combo Qual Negative 06/01/24 19:36: WBC 4.8, RBC 2.11 L, Hgb 4.9 L*, Hct 16.7 L*, MCV 79.1 L, MCH 23.2 L, MCHC 29.3 L, RDW 20.2 H, Plt Count 135 L, MPV 10.0, Neut % (Auto) 75.9, Lymph % (Auto) 16.8, [place] % (Auto) 5.0, Eos % (Auto) 1.7, Baso % (Auto) 0.4, Neut # (Auto) 3.6, Lymph # (Auto) 0.8, [place] # (Auto) 0.2, Eos # (Auto) 0.1, Baso # (Auto) 0.0, Retic Count (auto) 3.1, PT 11.0, INR 0.98, APTT 23.6, Sodium 134 L, Potassium 3.7, Chloride 101, Carbon Dioxide 34 H, Anion Gap 2.7 L, BUN 10, Creatinine 0.60, Estimated Creat Clear 47, Estimated GFR 101, Est GFR ( Amer) 122, Glucose 100, Calcium 8.3 L, Magnesium 1.6, Total Bilirubin 0.9, AST 40 H, ALT 19, Alkaline Phosphatase 154 H, Total Protein 7.0, Albumin 3.2 L, Globulin 3.8 H, Albumin/Globulin Ratio 0.8 L, Lipase 171 06/01/24 19:58: Blood Type Cancelled 06/01/24 19:58: Blood Type A Positive, Antibody Screen Cancelled 06/01/24 19:58: Antibody Screen Negative, Crossmatch (AHG) See Detail 06/01/24 19:58: Crossmatch (AHG) See Detail 06/02/24 04:58: WBC 4.6 L, RBC 2.45 L, Hgb 6.2 L* D 06/02/24 04:58: Hgb 6.2 L*, Hct 19.8 L* 06/02/24 04:58: Hct 19.7 L*, MCV 80.8 L, MCH 25.3 L, MCHC 31.3 L, RDW 17.8 H, Plt Count 112 L, MPV 10.3, Neut % (Auto) 78.3, Lymph % (Auto) 12.3, [place] % (Auto) 6.1, Eos % (Auto) 2.2, Baso % (Auto) 0.7, Neut # (Auto) 3.6, Lymph # (Auto) 0.[address], [place] # (Auto) 0.3, Eos # (Auto) 0.1, Baso # (Auto) 0.0, Sodium 132 L, Potassium 3.8, Chloride 104, Carbon Dioxide 25, Anion Gap 6.8, BUN 10, Creatinine 0.60, Estimated Creat Clear 47, Estimated GFR 101, Est GFR ( Amer) 122, Glucose 113 H, Lactate 1.4, Calcium 8.5, Magnesium 1.8 D, Iron 307 H, TIBC 380, Iron Saturation 80.58950 H, Total Bilirubin 3.7 H, AST 28 D, ALT 17, Alkaline Phosphatase 99, Total Protein 5.7 L, Albumin 2.5 L D, Globulin 3.2, Albumin/Globulin Ratio 0.8 L I & O for Labs for Last 24 Hours: Intake & Output 05/30/24 05/31/24 06/01/24 06/02/24 23:59 23:59 23:59 23:59 Intake Total 250 / 250 250 / 250 Balance 250 / 250 250 / 250 Weight 52.163 kg 52.163 kg Constitutional: Present mild distress, thin, chronically ill appearing and cooperative Head: Present atraumatic and normocephalic ENT: Present normal exam Respiratory: Present normal respiratory effort; Absent rhonchi, wheezes or crackles Cardiac: Present Reg Rate and Rhythm GI: Present soft, distention and normal bowel sounds; Absent tenderness Extremities: Present normal inspection and full ROM Comment:: Lipedema bilaterally Skin: Present intact and pallor; Absent erythema Neuro: Present Grossly Intact, alert, awake, oriented x 3 and moves all extremities Assessment and Plan *Assessment and plan (1) Anemia: Status: Acute Qualifiers: Anemia type: unspecified type Qualified Code(s): D64.9 - Anemia, unspecified Category: Medical Code(s): D64.9 - Anemia, unspecified (2) Gastric varices: Status: Acute Category: Medical Code(s): I86.4 - Gastric varices (3) Cirrhosis: Status: Acute Qualifiers: Ascites presence: without ascites Hepatic cirrhosis type: unspecified hepatic cirrhosis Qualified Code(s): K74.60 - Unspecified cirrhosis of liver Category: Medical Code(s): K74.60 - Unspecified cirrhosis of liver (4) Peripheral edema: Status: Acute Category: Medical Code(s): R60.0 - Localized edema (5) Vertigo: Status: Acute Category: Medical Code(s): R42 - Dizziness and giddiness (6) Closed fracture of right distal radius and ulna: Status: Acute Qualifiers: Encounter type: subsequent encounter Fracture healing: with routine healing Qualified Code(s): S52.501D - Unspecified fracture of the lower end of right radius, subsequent encounter for closed fracture with routine healing; S52.601D - Unspecified fracture of lower end of right ulna, subsequent encounter for closed fracture with routine healing Category: Medical Code(s): S52.501A - Unspecified fracture of the lower end of right radius, initial encounter for closed fracture; S52.601A - Unspecified fracture of lower end of right ulna, initial encounter for closed fracture Plan 63-year-old female with cirrhosis and history of varices who presents with anemia. Concern for possible GI bleed. Hemodynamically stable. Case discussed with ER physician, request admission for transfusion and further workup with GI. Medicine agreed to admit for further care. Received 2 units, hemoglobin increased to 6.2. Third unit transfusing. Continues to require inpatient management. Problems addressed as follows: Acute on chronic blood loss anemia Cirrhosis Gastric varices, high risk for decompensation. -Initial hemoglobin 4.6, after 2 units increased to 6.2. Transfusing third unit. Will monitor H&H 2 hours after transfusion. -On morning labs BUN is 10, creatinine 0.6. Potassium 3.8 and magnesium 1.8. Repeat CBC, CMP, magnesium ordered for the morning -Loaded with pantoprazole 80 mg IV once. Continue 40 mg IV twice daily. Initiate misoprostol given exposure to NSAIDs and concern for PUD 100 mg 3-4 times a day. No brisk bleeding, holding on octreotide at this time -Initiate prophylaxis with ceftriaxone 1 g daily given history of varices. -GI consulted to evaluate in the morning. Patient to be NPO. -Right upper quadrant ultrasound and duplex ordered to evaluate liver pathology and portal flow -History of gastric variceal banding 3 years ago. Patient started taking NSAIDs recently with a fractured wrist, differential includes gastric varices, PUD, diverticular bleed, hemorrhoids. Patient appears compensated even with her severe anemia. - Consider CT abdomen pelvis with contrast if develops bleeding to evaluate for potential source. - Iron studies obtained, iron level of 307 which is high, saturation 80% which is high. Liver enzymes normal with her cirrhosis. MELD score 11 Full code Anticoagulation contraindicated Clear liquid diet, n.p.o. at midnight
--- NOTE | 2024-06-02 08:03 | HMH.PHAINT1 ---
Pharmacy Intervention Comments: MEDICATION RECONCILIATION COMPLETED ON PATIENT USING EXTERNAL FILL HISTORY FROM PHARMACY AND ZEV REPORT. -EMMA GONZALEZ, JEMIMAD
[2024-06-02 09:45] LABS: Hematocrit 24.5 % (37.0-47.0); Hemoglobin 7.6 g/dL (12.2-16.2)
[2024-06-02] MEDS: miSOPROStol 100MCG TABLET 100 MCG PO ×3 (11:24→21:36)
[2024-06-02] MEDS: PANTOPRAZOLE SODIUM 80 MG in 0.9 % SODIUM CHLORIDE 100 ML 100 MG IV (11:24)
[2024-06-02] MEDS: CEFTRIAXONE SODIUM 1 GM in 0.9 % SODIUM CHLORIDE 50 ML IV (12:36)
--- NOTE | 2024-06-02 18:12 | PC.NURSE ---
patient is alert and oriented x4, remains on RA tolerating well. patient stated she feels less dizzy. she is ambulating to the bathroom via stand by assist. unable to obtain a stool and urine due to contamination of both in the hat. Has had several frequent BM this shift, liquid consistency, no blood noted in stool. tolerating clear liquids will be NPO after midnight. call light within reach, bed alarm on, no further requests at this time.
[2024-06-02 20:23] LABS: Hematocrit 23.4 % (37.0-47.0); Hemoglobin 7.3 g/dL (12.2-16.2)
[2024-06-02] MEDS: PANTOPRAZOLE 40MG VIAL 40 MG IV (21:36)
[2024-06-03] VITALS (18 sets, daily range): BP systolic 105–131; BP diastolic 54–87; PULSE 68–93; RESP 14–18; TEMP 36.2–36.9; O2SAT 95–100; BMI 20.4; BMI 35.0
[2024-06-03] MEDS: miSOPROStol 100MCG TABLET 100 MCG PO ×2 (04:10→13:30)
[2024-06-03 04:56] LABS: Microscopic, Urine URINE MICROSCOPIC (MICROSCOPIC)
[2024-06-03 04:57] LABS: Blood, Urine Negative (Negative); Glucose,Urine (UA) Negative (Negative); Ketones,Urine Negative (Negative); Leukocyte Esterase,Urine MODERATE (Negative); Nitrate,Urine POSITIVE (Negative); Protein,Urine TRACE (Negative)
[2024-06-03 04:58] LABS: Bilirubin,Urine 1+ (Negative)
[2024-06-03 04:59] LABS: Appearance,Urine Slightly Cloudy (Clear); Color,Urine Amber (Yellow)
[2024-06-03 05:06] LABS: WBC,Urine 20-50 #/hpf (0-3)
[2024-06-03 05:07] LABS: Bacteria,Urine 1+ /lpf; Squamous Epithelial Cell,Urine Occasional #/hpf (0-5)
--- NOTE | 2024-06-03 05:20 | PC.NURSE ---
Pt is alert and oriented x4. Pt has been NPO since 0000 due to GI consult and possible procedure. Pt has not had any acute changes this shift to note.
[2024-06-03 05:22] LABS: Basophils % 0.9 % (0.1-2.0); Eosinophils # 0.3 K/mm3 (0.0-0.4); Eosinophils % 5.5 % (0.1-12.0); Hematocrit 22.3 % (37.0-47.0); Hemoglobin 7.1 g/dL (12.2-16.2); Lymphocytes # 0.6 K/mm3 (0.7-4.5); Lymphocytes % 14.1 % (10-50); Mean Corpuscular HGB Conc 31.8 g/dL (31.8-35.4); Mean Corpuscular Hemoglobin 25.6 pg (27.0-31.2); Mean Corpuscular Volume 80.5 fl (81-99); Mean Platelet Volume 11.1 fl (7.4-10.4); Monocytes # 0.2 K/mm3 (0.1-1.0); Monocytes % 4.6 % (1.7-9.3); Neutrophils # 3.4 K/mm3 (1.8-7.8); Neutrophils % 74.7 % (37.0-80.0); Platelet Count 109 K/mm3 (142-424); Red Blood Count 2.77 M/mm3 (4.20-5.40); Red Cell Distribution Width 17.5 % (11.5-17.5); White Blood Count 4.6 K/mm3 (4.8-10.8)
[2024-06-03 05:28] LABS: Albumin Level 2.5 g/dl (3.5-5.0); Chloride 103 mmol/L (98-107); Potassium 3.6 mmoL/L (3.5-5.1); Sodium 129 mmol/L (136-145)
[2024-06-03 05:31] LABS: Alanine Aminotransferase 17 U/L (12-78); Albumin/Globulin Ratio 0.8 (1.1-1.8); Alkaline Phosphatase 121 U/L (38-126); Anion Gap 3.6 mEq/L (5-15); Aspartate Amino Transferase 30 U/L (14-36); Bilirubin,Total 1.9 mg/dl (0.2-1.3); Blood Urea Nitrogen 7 mg/dl (7-17); Carbon Dioxide 26 mmol/L (22.0-30.0); Creatinine Clearance Estimated 50 mL/min (50-200); Estimated Glomerular Filt Rate 84 ml/min (>60); GFR (African American) 102 ML/MIN (>60); Globulin 3.3 g/dL (1.3-3.2); Total Protein,Serum 5.8 g/dl (6.3-8.2)
[2024-06-03 05:32] LABS: Calcium 8.1 mg/dl (8.4-10.2); Glucose 78 mg/dl (74-100); Magnesium 1.6 mg/dl (1.6-2.3)
--- NOTE | 2024-06-03 07:15 | P.CONS_ITS ---
History of Present Illness *Admission Date: 06/01/24 *History of present illness: Mrs. Leblanc is a 63-year-old female who is here for admission after presenting with dyspnea on exertion and blurred vision and drop in hemoglobin. The patient's initial hemoglobin was 4.9. Her hematocrit was 16.7. She did receive 3 units of PRBCs and responded. Her hemoglobin and hematocrit today are 7.1 and 22.3. She does have thrombocytopenia with platelet count of 109,000. She does have a history of cirrhosis and esophageal varices. The patient's iron studies showed iron saturation of 80% with serum iron 307. Her AST 30, ALT 17 and alkaline phosphatase 121 are normal with total bilirubin 1.9 today. She reports no use of alcohol. She does state that she developed hepatitis at the age of 13. Her hepatitis C antibody testing is negative. She is Hemoccult positive. Her last CT scan of the abdomen in February 2022 showed distal esophageal varices. She has had variceal banding 3 times previously. She had been followed by the [facility] and briefly by GI nurse practitioner at [facility]. The patient did have severe splenomegaly consistent with portal hypertension. The patient has not had any recent imaging of the abdomen. The patient has had some lower extremity edema. She reports intermittent dark stools but reports no hematemesis, melena or hematochezia. [facility] Disclaimer: The information contained in this section may have been updated after the patient was seen, as this information can be updated by other users. Medical History (Updated 06/03/24 @ 07:22 by Jarret Paez II, MD) Anemia Hypertension, portal Closed fracture of left radius with malunion Osteoporosis Liver disease Arthritis Valvular heart disease Vocal cord nodule Hx of esophageal varices Surgical History Hx of esophagogastroduodenoscopy H/O colonoscopy H/O section Family History Other Family history of Alzheimer's disease Family history of cancer Family history of diabetes mellitus type II Family history of stroke Social History Smoking Status: Never smoker alcohol intake: never substance use type: denies use current occupational status: employed and other Travel in the last 8 weeks: None household members: significant other housing: house caffeine: No Have you lived/traveled outside US in past 30 days?: No Contact w/someone who lives/traveled outside US past 30 days?: No Exposure to someone with infectious disease in past 14 days?: No Do you have a fever (greater than 100.4 F or 38 C)?: No Have you tested positive for COVID-19: No Exposed to someone with COVID-19 in past 14 days?: No Do you have a sore throat?: No Do you have a cough?: No Do you have any weakness?: No Do you have any diarrhea?: No Are you experiencing any unusual bleeding?: No Do you have any muscle aches/pain?: No Do you have any abdominal pain?: No Are you experiencing loss of taste or smell?: No Review of Systems Constitutional Constitutional: Reports frequent falls *Neurologic Neurologic: Reports as per HPI and Reports frequent falls Meds Home Medications and Allergies Home Medications ?Medication ?Instructions ?Recorded ?Confirmed ?Type bumetanide 0.5 mg tablet 0.5 mg PO DAILYP PRN Edema 06/02/24 06/02/24 History tramadol 50 mg tablet 50 mg PO Q8HP PRN Moderate Pain 06/02/24 06/02/24 History (Scale Score 5-6) New Prescriptions to Start Prescriptions: Allergies Allergy/AdvReac Type Severity Reaction Status Date / Time No Known Allergies Allergy Verified 04/30/24 11:16 Exam (Inpt) Vital signs and Labs for Last 24 Hours: Temp Pulse Resp BP Pulse Ox O2 Del Method 98.4 F 85 14 112/57 L 97 Room Air 06/03/24 04:00 06/03/24 04:00 06/03/24 04:00 06/03/24 04:00 06/03/24 04:00 06/03/24 06:48 Laboratory Results - last 24 hr 06/01/24 04:49: Urine Color [place], Urine Appearance Slightly cloudy, Urine pH 7.0, Ur Specific [place] 1.010, Urine Protein Trace, Urine Glucose (UA) Negative, Urine Ketones Negative, Urine Blood Negative, Urine Nitrate Positive A , Urine Bilirubin 1+ A, Urine Urobilinogen 2.0, Ur Leukocyte Esterase Moderate, Urine RBC None, Urine WBC 20-50, Ur Squamous Epith Cells Occasional, Urine Bacteria 1+ 06/01/24 19:58: Crossmatch (AHG) See Detail 06/02/24 09:30: Hgb 7.6 L D, Hct 24.5 L 06/02/24 20:10: Hgb 7.3 L, Hct 23.4 L 06/03/24 05:05: WBC 4.6 L, RBC 2.77 L, Hgb 7.1 L, Hct 22.3 L, MCV 80.5 L, MCH 25.6 L, MCHC 31.8, RDW 17.5, Plt Count 109 L, MPV 11.1 H, Neut % (Auto) 74.7, Lymph % (Auto) 14.1, [place] % (Auto) 4.6, Eos % (Auto) 5.5, Baso % (Auto) 0.9, Neut # (Auto) 3.4, Lymph # (Auto) 0.6 L, [place] # (Auto) 0.2, Eos # (Auto) 0.3, Baso # (Auto) 0.0, Sodium 129 L, Potassium 3.6, Chloride 103, Carbon Dioxide 26, Anion Gap 3.6 L, BUN 7 D, Creatinine 0.70, Estimated Creat Clear 50, Estimated GFR 84, Est GFR ( Amer) 102, Glucose 78, Calcium 8.1 L, Magnesium 1.6 D, Total Bilirubin 1.9 H, AST 30, ALT 17, Alkaline Phosphatase 121, Total Protein 5.8 L, Albumin 2.5 L, Globulin 3.3 H, Albumin/Globulin Ratio 0.8 L I & O for Labs for Last 24 Hours: Intake & Output 05/31/24 06/01/24 06/02/24 06/03/24 23:59 23:59 23:59 23:59 Intake Total 250 / 300 1510 / 1510 Output Total 650 / 650 250 / 250 Balance 250 / 300 860 / 860 -250 / -250 Weight 115 lb 114 lb 15.996 oz 122 lb 9 oz Comment:: Awake and alert in no acute distress Comments:: Benign soft abdomen, normal active bowel sounds, moderate splenomegaly, liver firm with blunted edges, no ascites, nontender Results Labs 06/03/24 05:05 06/03/24 05:05 Labs: Laboratory Results - last 24 hr 06/01/24 04:49: Urine Color [place], Urine Appearance Slightly cloudy, Urine pH 7.0, Ur Specific [place] 1.010, Urine Protein Trace, Urine Glucose (UA) Negative, Urine Ketones Negative, Urine Blood Negative, Urine Nitrate Positive A , Urine Bilirubin 1+ A, Urine Urobilinogen 2.0, Ur Leukocyte Esterase Moderate, Urine RBC None, Urine WBC 20-50, Ur Squamous Epith Cells Occasional, Urine Bacteria 1+ 06/01/24 19:58: Crossmatch (AHG) See Detail 06/02/24 09:30: Hgb 7.6 L D, Hct 24.5 L 06/02/24 20:10: Hgb 7.3 L, Hct 23.4 L 06/03/24 05:05: WBC 4.6 L, RBC 2.77 L, Hgb 7.1 L, Hct 22.3 L, MCV 80.5 L, MCH 25.6 L, MCHC 31.8, RDW 17.5, Plt Count 109 L, MPV 11.1 H, Neut % (Auto) 74.7, Lymph % (Auto) 14.1, [place] % (Auto) 4.6, Eos % (Auto) 5.5, Baso % (Auto) 0.9, Neut # (Auto) 3.4, Lymph # (Auto) 0.6 L, [place] # (Auto) 0.2, Eos # (Auto) 0.3, Baso # (Auto) 0.0, Sodium 129 L, Potassium 3.6, Chloride 103, Carbon Dioxide 26, Anion Gap 3.6 L, BUN 7 D, Creatinine 0.70, Estimated Creat Clear 50, Estimated GFR 84, Est GFR ( Amer) 102, Glucose 78, Calcium 8.1 L, Magnesium 1.6 D, Total Bilirubin 1.9 H, AST 30, ALT 17, Alkaline Phosphatase 121, Total Protein 5.8 L, Albumin 2.5 L, Globulin 3.3 H, Albumin/Globulin Ratio 0.8 L Assessment and Plan *Assessment and plan (1) Esophageal varices in cirrhosis: Status: Acute Category: Medical Code(s): K74.60 - Unspecified cirrhosis of liver; I85.10 - Secondary esophageal varices without bleeding (2) Portal hypertension: Status: Acute Category: Medical Code(s): K76.6 - Portal hypertension (3) Cirrhosis: Status: Acute Qualifiers: Ascites presence: without ascites Hepatic cirrhosis type: unspecified hepatic cirrhosis Qualified Code(s): K74.60 - Unspecified cirrhosis of liver Category: Medical Code(s): K74.60 - Unspecified cirrhosis of liver (4) GI bleed: Status: Acute Category: Medical Code(s): K92.2 - Gastrointestinal hemorrhage, unspecified (5) Anemia: Status: Acute Category: Medical Code(s): D64.9 - Anemia, unspecified Plan 1. Cirrhosis of unknown etiology (? Cryptogenic cirrhosis) with GI bleeding. I suspect that these are esophageal varices and she may have portal gastropathy or GAVE as potential etiology of chronic GI blood loss. I will plan EGD today. However, we can determine the etiology of GI bleeding. The patient does have elevated iron stores and will check hemochromatosis genetic assay. I would also like to check for other etiologies including alpha-1 antitrypsin. I will obtain smooth muscle antibody, mitochondrial antibody, etc. I will also obtain MELD score.
--- NOTE | 2024-06-03 07:48 | P.PN_ITS ---
Subjective *Date: 06/03/24 *Time: 15:52 Interval history: Patient denies any chest pain today, no nausea or vomiting. N.p.o. for EGD today. No further bleeding that she is aware of. No black or melenic stools. Stable on room air. Medical Exam Vital signs and Labs for Last 24 Hours: Vital Signs Temp Pulse Pulse Resp BP BP Pulse Ox 06/03/24 06:48 06/03/24 04:45 06/03/24 04:00 98.4 F 85 14 112/57 L 97 06/03/24 03:00 06/03/24 01:00 06/03/24 00:00 98.5 F 69 14 113/60 97 06/02/24 23:00 06/02/24 21:00 06/02/24 20:00 06/02/24 19:55 98.7 F 89 16 120/67 100 06/02/24 18:31 06/02/24 17:00 06/02/24 16:00 98.2 F 71 16 119/65 96 06/02/24 15:00 06/02/24 13:00 06/02/24 11:00 06/02/24 09:32 98.0 F 80 18 111/61 98 06/02/24 09:00 06/02/24 08:32 98.2 F 73 18 117/49 L 98 06/02/24 08:00 98.1 F 76 18 109/60 L 99 06/02/24 08:00 O2 Del Method 06/03/24 06:48 Room Air 06/03/24 04:45 Room Air 06/03/24 04:00 Room Air 06/03/24 03:00 Room Air 06/03/24 01:00 Room Air 06/03/24 00:00 Room Air 06/02/24 23:00 Room Air 06/02/24 21:00 Room Air 06/02/24 20:00 Room Air 06/02/24 19:55 Room Air 06/02/24 18:31 Room Air 06/02/24 17:00 Room Air 06/02/24 16:00 Room Air 06/02/24 15:00 Room Air 06/02/24 13:00 Room Air 06/02/24 11:00 Room Air 06/02/24 09:32 06/02/24 09:00 Room Air 06/02/24 08:32 06/02/24 08:00 06/02/24 08:00 Room Air Intake and Output 06/02/24 06/02/24 06/03/24 15:59 23:59 07:59 Intake Total 610 / 1510 600 / 1510 Output Total 0 / 650 350 / 650 250 / 250 Balance 610 / 860 250 / 860 -250 / -250 Intake: Intake, Oral Amount 360 / 960 600 / 960 Intake (Blood Product) Amt 250 / 500 Red Blood Cells Unit 250 / 250 [id number] Output: Output, Urine Amount 0 / 650 350 / 650 250 / 250 Other: Number of Unmeasured Voids 0 1 0 Number of Bowel Movements 1 1 Weight 55.593 kg Patient Weight 06/03/24 23:59 Weight 55.593 kg Laboratory Results - last 24 hr 06/01/24 04:49: Urine Color Ti[place], Urine Appearance Slightly cloudy, Urine pH 7.0, Ur Specific [place] 1.010, Urine Protein Trace, Urine Glucose (UA) Negative, Urine Ketones Negative, Urine Blood Negative, Urine Nitrate Positive A , Urine Bilirubin 1+ A, Urine Urobilinogen 2.0, Ur Leukocyte Esterase Moderate, Urine RBC None, Urine WBC 20-50, Ur Squamous Epith Cells Occasional, Urine Bacteria 1+ 06/01/24 19:58: Crossmatch (AHG) See Detail 06/02/24 09:30: Hgb 7.6 L D, Hct 24.5 L 06/02/24 20:10: Hgb 7.3 L, Hct 23.4 L 06/03/24 05:05: WBC 4.6 L, RBC 2.77 L, Hgb 7.1 L, Hct 22.3 L, MCV 80.5 L, MCH 25.6 L, MCHC 31.8, RDW 17.5, Plt Count 109 L, MPV 11.1 H, Neut % (Auto) 74.7, Lymph % (Auto) 14.1, [place] % (Auto) 4.6, Eos % (Auto) 5.5, Baso % (Auto) 0.9, Neut # (Auto) 3.4, Lymph # (Auto) 0.6 L, [place] # (Auto) 0.2, Eos # (Auto) 0.3, Baso # (Auto) 0.0, Sodium 129 L, Potassium 3.6, Chloride 103, Carbon Dioxide 26, Anion Gap 3.6 L, BUN 7 D, Creatinine 0.70, Estimated Creat Clear 50, Estimated GFR 84, Est GFR ( Amer) 102, Glucose 78, Calcium 8.1 L, Magnesium 1.6 D, Total Bilirubin 1.9 H, AST 30, ALT 17, Alkaline Phosphatase 121, Total Protein 5.8 L, Albumin 2.5 L, Globulin 3.3 H, Albumin/Globulin Ratio 0.8 L I & O for Labs for Last 24 Hours: Intake & Output 05/31/24 06/01/24 06/02/24 06/03/24 23:59 23:59 23:59 23:59 Intake Total 250 / 300 1510 / 1510 Output Total 650 / 650 250 / 250 Balance 250 / 300 860 / 860 -250 / -250 Weight 52.163 kg 52.163 kg 55.593 kg Constitutional: Present no acute distress, thin, chronically ill appearing and cooperative Head: Present atraumatic and normocephalic ENT: Present normal exam Respiratory: Present normal respiratory effort; Absent rhonchi, wheezes or crackles Cardiac: Present Reg Rate and Rhythm GI: Present soft, distention and normal bowel sounds; Absent tenderness Extremities: Present normal inspection and full ROM Comment:: Lipedema bilaterally Skin: Present intact and pallor; Absent erythema Neuro: Present Grossly Intact, alert, awake, oriented x 3 and moves all extremities Assessment and Plan *Assessment and plan (1) Anemia: Status: Acute Qualifiers: Anemia type: unspecified type Qualified Code(s): D64.9 - Anemia, unspecified Category: Medical Code(s): D64.9 - Anemia, unspecified (2) Gastric varices: Status: Acute Category: Medical Code(s): I86.4 - Gastric varices (3) Cirrhosis: Status: Acute Qualifiers: Ascites presence: without ascites Hepatic cirrhosis type: unspecified hepatic cirrhosis Qualified Code(s): K74.60 - Unspecified cirrhosis of liver Category: Medical Code(s): K74.60 - Unspecified cirrhosis of liver (4) Peripheral edema: Status: Acute Category: Medical Code(s): R60.0 - Localized edema (5) Vertigo: Status: Acute Category: Medical Code(s): R42 - Dizziness and giddiness (6) Closed fracture of right distal radius and ulna: Status: Acute Qualifiers: Encounter type: subsequent encounter Fracture healing: with routine healing Qualified Code(s): S52.501D - Unspecified fracture of the lower end of right radius, subsequent encounter for closed fracture with routine healing; S52.601D - Unspecified fracture of lower end of right ulna, subsequent encounter for closed fracture with routine healing Category: Medical Code(s): S52.501A - Unspecified fracture of the lower end of right radius, initial encounter for closed fracture; S52.601A - Unspecified fracture of lower end of right ulna, initial encounter for closed fracture Plan 63-year-old female with cirrhosis and history of varices who presents with anemia. Concern for possible GI bleed. Hemodynamically stable. Case discussed with ER physician, request admission for transfusion and further workup with GI. Medicine agreed to admit for further care. Post 3 units of blood. Hemoglobin 7.1 this morning, above transfusion threshold. GI evaluating today. Continues to require inpatient management. Problems addressed as follows: Acute on chronic blood loss anemia Cirrhosis Gastric varices, high risk for decompensation. -Initial hemoglobin 4.6, improved to 7.6 after 3 units. 7.1 today. Platelets 109. Repeat H&H ordered for for this afternoon. Repeat CBC, CMP, magnesium ordered for the morning -Kidney function stable with BUN 7, creatinine 0.7. Liver function with bilirubin 1.9, AST 30, ALT 17, alk phos 131. - Discussed case with GI, planning for EGD today. Evaluating for varices. Pending etiology of bleeding or active bleeding, may necessitate transfer versus monitoring with serial labs. Also recommend obtaining alpha-1 antitrypsin labs and assessment for hemochromatosis. GI ordered smooth muscle antibody, mitochondrial antibody. -Continue pantoprazole 40 mg IV twice daily. Discontinue misoprostol if no PUD identified on EGD. Holding octreotide. If develops any bleeding, will need to initiate octreotide drip at 50 mcg an [address] and [facility]. Patient will need urgent transfer to tertiary center in that case. -Continue prophylactic ceftriaxone 1 g daily -Initiate carvedilol 6.25 mg twice daily for variceal prophylaxis -Right upper quadrant ultrasound showing cirrhosis, portal flow appropriate. Does have small ascites - Consider CT abdomen pelvis with contrast if develops bleeding to evaluate for potential source. - Iron studies obtained, iron level of 307 which is high, saturation 80% which is high. Liver enzymes normal with her cirrhosis. MELD score 11 Full code Anticoagulation contraindicated Clear liquid diet, n.p.o. at midnight
[2024-06-03] MEDS: MAGNESIUM SULFATE IN WATER 2 GM/50 ML PIGGYBACK IV ×2 (08:56→10:25)
[2024-06-03] MEDS: SODIUM CHLORIDE 0.9% 10ML VIAL 8 ML IV ×2 (08:57→21:12)
[2024-06-03] MEDS: PANTOPRAZOLE 40MG VIAL 40 MG IV ×2 (08:57→21:12)
--- NOTE | 2024-06-03 12:20 | HMH.PROCNOTE ---
[facility] Procedure Note Date: 06/03/24 Time: 12:24 Procedure Note:: Upper Endoscopy Procedure Report: Esophagogastroduodenoscopy with cold biopsies, APC ablation and variceal band ligation Endoscopost: Jarret Paez II, MD Referring Physician: Gold Gongora M.D. Date of Procedure: June 03, 2024 Equipment: Olympus GIF 190 standard upper endoscope Sedation: MAC sedation Indications: Mrs. Leblanc is a 63-year-old female who is here for admission after presenting with dyspnea on exertion and blurred vision and drop in hemoglobin. The patient's initial hemoglobin was 4.9. Her hematocrit was 16.7. She did receive 3 units of PRBCs and responded. Her hemoglobin and hematocrit today are 7.1 and 22.3. She does have thrombocytopenia with platelet count of 109,000. She does have a history of cirrhosis and esophageal varices. The patient's iron studies showed iron saturation of 80% with serum iron 307. Her AST 30, ALT 17 and alkaline phosphatase 121 are normal with total bilirubin 1.9 today. She reports no use of alcohol. She does state that she developed hepatitis at the age of 13. Her hepatitis C antibody testing is negative. She is Hemoccult positive. Her last CT scan of the abdomen in February 2022 showed distal esophageal varices. She has had variceal banding 3 times previously. She had been followed by the [facility] and briefly by GI nurse practitioner at [facility]. The patient did have severe splenomegaly consistent with portal hypertension. The patient has not had any recent imaging of the abdomen. The patient has had some lower extremity edema. She reports intermittent dark stools but reports no hematemesis, melena or hematochezia. Procedure: Prior to the procedure, a history and physical exam was performed, and patient's medications and allergies were reviewed. The risks, benefits and alternatives of the sedation and procedure were discussed with the patient. All questions were answered and informed consent was obtained. The patient was brought to the procedure room. Patient identification and proposed procedure were verified by the physician and the nurse. The patient was placed in a left lateral decubitus position and the scope was passed under direct vision. Throughout the procedure, the patient's blood pressure, pulse, and oxygen saturations were monitored continuously. The upper GI endoscopy was accomplished without difficulty. The patient tolerated the procedure well. Findings: The scope was passed directly into the upper esophagus and advanced to the third portion of the duodenum. The post bulbar duodenum, ampulla and duodenal bulb were normal with normal mucosa and conniventes. The scope was withdrawn through a normal duodenal bulb and pylorus into the stomach. There was no evidence of GAVE of the antrum. There was very mild portal gastropathy. Biopsies were taken from the antrum. Upon retroflexion there were gastric fundic varices without stigmata. There was a small 2 cm hiatal hernia. The scope was then withdrawn into the esophagus. There was AVMs at the GE junction as well as a very short tongue of salmon-colored mucosa that was biopsied to rule out Carlisle's. The AVM did have some active heme oozing and this was ablated using APC ablation. There were grade 2 esophageal varices with minimal stigmata and 3 columns of varices were banded using 4 bands with excellent ligation effect. The remainder of the esophageal mucosa was normal. Impression: 1. Grade 2 esophageal varices with minimal stigmata status post band ligation x 4 2. 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 Mild portal gastropathy Plan: I would recommend carvedilol for primary prophylaxis. The patient does have both esophageal and gastric varices. Acute gastrointestinal bleeding from gastric varices can be threatening and is associated with higher mortality compared to esophageal variceal bleeding. Certainly if these were bleeding, it would be much more important to be admitted at a tertiary liver center (i.e. [facility]) for management. In this regard, I would like for her to continue management locally but also with the [facility]. When these are found incidentally at the time of an upper endoscopy we do primarily use nonselective beta-blockers prophylaxis. If bleeding from gastric varices does occur, we do know that endoscopic injected sclerosing agents (i.e. polidocanol, or tetradecyl sulfate) are associated with increased complications and rebleeding rates. Those should not be utilized. Also, banding of esophageal varices is associated with early rebleeding and is also not recommended. The traditional approach for actively bleeding gastric varices is the use of injection of Cyanoacrylate (CYA) glue (which was FDA approved in the [place] just a few years ago) and is primarily used in advanced tertiary centers that encounter a greater number of patients with liver failure and gastric variceal bleeding (i.e. the [facility]). Injecting this glue in someone that has never had gastric variceal bleeding is not indicated since it can lead to complications including inciting bleeding. Additionally, a new intervention utilizing endoscopic ultrasound-guided delivery of hemostatic coils into the gastric varices has shown very high therapeutic success rates and is now offered at many tertiary centers. Cyanoacrylate has a greater complication rate and it does appear that these coils lead to use significantly lower gastric variceal rebleeding rates, lower transfusion requirements and significantly lower nine-month re-intervention rates. Ultimately, if Cyanoacrylate glue or hemostatic coils are not readily available or not effective, the next step is TIPS or BRTO. TIPS is an interventional radiology technique that involves creating an intrahepatic connection between the hepatic and the portal venous system resulting in the diversion of the portal venous flow into the systemic circulation, thereby reducing portal pressure. It is the treatment of choice in acute gastric variceal bleeding. Randomized control trials have shown that TIPS has been more effective than cyanoacrylate injection in preventing rebleeding from gastric varices with similar complication rates. BRTO has emerged as a safe and clinically effective treatment option in managing gastric variceal bleeding and should be considered an alternative option, especially in persons with associated refractory hepatic encephalopathy. BRTO is another interventional radiology technique that involves the retrograde radiologic injection of a sclerosing agent into gastric varix after occluding the portosystemic shunt with an occlusion balloon under fluoroscopic guidance.
--- NOTE | 2024-06-03 13:10 | SUR.PHASEII ---
called report to tamika heredia
--- NOTE | 2024-06-03 13:28 | EXP.ANES.CKL ---
[facility] Disclaimer: The information contained in this section may have been updated after the patient was seen, as this information can be updated by other users. Medical History (Updated 06/03/24 @ 07:22 by Jarret Paez II, MD) Anemia Hypertension, portal Closed fracture of left radius with malunion Osteoporosis Liver disease Arthritis Valvular heart disease Vocal cord nodule Hx of esophageal varices Surgical History Hx of esophagogastroduodenoscopy H/O colonoscopy H/O section Family History Other Family history of Alzheimer's disease Family history of cancer Family history of diabetes mellitus type II Family history of stroke Social History Smoking Status: Never smoker alcohol intake: never substance use type: denies use current occupational status: employed and other Travel in the last 8 weeks: None household members: significant other housing: house caffeine: No Have you lived/traveled outside US in past 30 days?: No Contact w/someone who lives/traveled outside US past 30 days?: No Exposure to someone with infectious disease in past 14 days?: No Do you have a fever (greater than 100.4 F or 38 C)?: No Have you tested positive for COVID-19: No Exposed to someone with COVID-19 in past 14 days?: No Do you have a sore throat?: No Do you have a cough?: No Do you have any weakness?: No Do you have any diarrhea?: No Are you experiencing any unusual bleeding?: No Do you have any muscle aches/pain?: No Do you have any abdominal pain?: No Are you experiencing loss of taste or smell?: No [facility] Anesthesia Checklist Patient Identification Patient Identification: Arm Band Structural Data Admitted From: Inpatient Planned Operative Procedure/s: EGD Consent for Planned Operative Procedure(s) Verified: Yes Verified Documents: Surgical Consent and History and Physical NPO Status Verified Time NPO: 00:00 Additional verifications Anesthesia Reactions: No Hx Blood Transfusions: No Blood Transfusion Reaction: No Airway Assessment Mallampati Score:: Class II C-Spine Mobility Assessed: Yes TMJ Mobility Assessed: Yes Dentition: Dentures-good fit (removed) Neurological Assessment Level of Consciousness: Awake, Alert and Appropriate Anesthesia Plan Anesthesia Risk discussed: Yes Anesthesia Plan: Verified ASA Class: III Anesthesia Type: MAC
[2024-06-03] MEDS: CEFTRIAXONE SODIUM 1 GM in 0.9 % SODIUM CHLORIDE 50 ML IV (13:30)
[2024-06-03] MEDS: ONDANSETRON 4MG/2ML VIAL 4 MG IV (13:30)
[2024-06-03] MEDS: SIMETHICONE 80MG CHEWABLE TABLET 80 MG PO ×2 (14:37→21:19)
[2024-06-03 15:03] LABS: Actin (Smooth Muscle) Antibody 8 Units (0-19)
--- NOTE | 2024-06-03 16:16 | US_ITS ---
FINAL REPORT CLINICAL HISTORY: portal flow/varices? COMPARISON: None FINDINGS: The pancreas is obscured. The liver is nodular in contour consistent with cirrhosis. The portal vein is patent with normal directional flow. Hepatic veins are patent with normal directional flow. Right kidney measures 11.6 cm without evidence of hydronephrosis, mass, or stone. Common duct is 4 mm which is normal. The gallbladder is present. There is gallbladder wall thickening but this is nonspecific in the setting of ascites. No evidence of gallstones. Small to moderate amount of ascites is noted. IMPRESSION: Cirrhosis with ascites. Patent portal vein with normal directional flow. No varices visualized. Reviewed, Interpreted and Dictated by Codie Rodriguez MD Transcribed by Isis Harrington Authenticated and [facility]
[2024-06-03 16:19] LABS: Hematocrit 23.5 % (37.0-47.0); Hemoglobin 7.3 g/dL (12.2-16.2)
--- NOTE | 2024-06-03 18:36 | PC.NURSE ---
Pt is alert and oriented x4. She has complained of abdominal pain since arriving back to the floor. She described it as pressure and said she felt like it could be gas. notified and simethicone ordered and administered per mar. She is currently sitting up in bed watching tv. Bed is locked and in the lowest position, call light within reach.
[2024-06-03] MEDS: CARVEDILOL 6.25MG TABLET 6.25 MG PO (21:13)
[2024-06-03] MEDS: HYDROMORPHONE 2MG/ML SYRINGE 0.5 MG IV (23:30)
[2024-06-04] VITALS: BP 103/57; PULSE 73; RESP 17; TEMP 36.5; O2SAT 97
[2024-06-04 04:00] VITALS: BP 112/64; PULSE 68; RESP 16; TEMP 36.5; O2SAT 97; BMI 20.5
[2024-06-04 06:34] LABS: Eosinophils # 0.2 K/mm3 (0.0-0.4); Eosinophils % 5.9 % (0.1-12.0); Hematocrit 23.7 % (37.0-47.0); Hemoglobin 7.2 g/dL (12.2-16.2); Lymphocytes # 0.6 K/mm3 (0.7-4.5); Lymphocytes % 15.3 % (10-50); Mean Corpuscular HGB Conc 30.4 g/dL (31.8-35.4); Mean Corpuscular Hemoglobin 25.3 pg (27.0-31.2); Mean Corpuscular Volume 83.2 fl (81-99); Mean Platelet Volume 10.4 fl (7.4-10.4); Monocytes # 0.2 K/mm3 (0.1-1.0); Monocytes % 4.6 % (1.7-9.3); Neutrophils # 2.9 K/mm3 (1.8-7.8); Neutrophils % 72.9 % (37.0-80.0); Platelet Count 75 K/mm3 (142-424); Red Blood Count 2.85 M/mm3 (4.20-5.40); Red Cell Distribution Width 17.8 % (11.5-17.5); White Blood Count 3.9 K/mm3 (4.8-10.8)
[2024-06-04 06:41] LABS: Magnesium 2.2 mg/dl (1.6-2.3)
[2024-06-04 06:44] LABS: Alanine Aminotransferase 15 U/L (12-78); Albumin Level 2.4 g/dl (3.5-5.0); Albumin/Globulin Ratio 0.8 (1.1-1.8); Alkaline Phosphatase 90 U/L (38-126); Anion Gap 5.7 mEq/L (5-15); Aspartate Amino Transferase 37 U/L (14-36); Bilirubin,Total 1.7 mg/dl (0.2-1.3); Blood Urea Nitrogen 7 mg/dl (7-17); Carbon Dioxide 23 mmol/L (22.0-30.0); Chloride 105 mmol/L (98-107); Creatinine Clearance Estimated 47 mL/min (50-200); Estimated Glomerular Filt Rate 124 ml/min (>60); GFR (African American) 150 ML/MIN (>60); Globulin 3.2 g/dL (1.3-3.2); Glucose 79 mg/dl (74-100); Potassium 3.7 mmoL/L (3.5-5.1); Sodium 130 mmol/L (136-145); Total Protein,Serum 5.6 g/dl (6.3-8.2)
--- NOTE | 2024-06-04 06:47 | PC.NURSE ---
Pt. is alert and orientated x 4. Pt. on room air. Pt. had esophageal variecies banded yesterday. At change of shift pt. was c/o of pain to left lowerchest and upper left abd. requested simethicone with no relief. Pain increased to 10/10. Pt. given Dilaudid 0.5 mg with good relief of pain. Pt. slept well. VSS. Personal items and call stanley in reach.
[2024-06-04 08:00] VITALS: BP 120/58; PULSE 66; RESP 16; TEMP 36.5; O2SAT 99
--- NOTE | 2024-06-04 08:00 | ECG_ITS ---
APPROVED REPORT Exam: Resting ECG HR:69 bpm ECG Measurements Heart Rate 69 AXES MI 170 P 72 QRSd 98 QRS 29 QT 412 T 61 QTc 431 Conclusion SINUS RHYTHM NORMAL ECG UNCONFIRMED REPORT Electronically signed by : Gold Gongora MD 06/04/2024 21:06:12
[2024-06-04] MEDS: PANTOPRAZOLE 40MG VIAL 40 MG IV (08:06)
[2024-06-04] MEDS: CARVEDILOL 6.25MG TABLET 6.25 MG PO (08:06)
[2024-06-04] MEDS: BELLADONNA ALKALOIDS 60 ML ML PO (08:06)
[2024-06-04] MEDS: SODIUM CHLORIDE 0.9% 10ML VIAL 8 ML IV (08:07)
[2024-06-04 09:31] LABS: HBsAg Screen Negative (Negative); HCV Ab Non Reactive (Non Reactive); Hep A Ab, IGM Negative (Negative); Hep B Core Ab, IgM Negative (Negative)
--- NOTE | 2024-06-04 11:15 | EXP.PN ---
Subjective *Date: 06/04/24 *Time: 11:15 Interval history: Doing well with no abdominal complaints. The patient did have some retrosternal discomfort after variceal banding earlier this morning and responded to GI cocktail. Exam Data for Last 24 hours Vital signs and Labs for Last 24 Hours: Temp Pulse Resp BP Pulse Ox O2 Del Method O2 Flow Rate 97.7 F 66 16 120/58 L 99 Room Air 10 06/04/24 08:00 06/04/24 08:00 06/04/24 08:00 06/04/24 08:00 06/04/24 08:00 06/04/24 08:00 06/03/24 12:25 Laboratory Results - last 24 hr 06/02/24 04:58: Anti-Smooth Muscle Ab 8 06/03/24 05:05: Hepatitis A IgM Ab Negative, Hep Bs Antigen Negative, Hep B Core IgM Ab Negative, Hepatitis C Antibody Non reactive, HCV RNA PCR Test Info Comment 06/03/24 16:07: Hgb 7.3 L, Hct 23.5 L 06/04/24 06:15: WBC 3.9 L, RBC 2.85 L, Hgb 7.2 L, Hct 23.7 L, MCV 83.2, MCH 25.3 L, MCHC 30.4 L, RDW 17.8 H, Plt Count 75 L D, MPV 10.4, Neut % (Auto) 72.9, Lymph % (Auto) 15.3, [place] % (Auto) 4.6, Eos % (Auto) 5.9, Baso % (Auto) 1.0, Neut # (Auto) 2.9, Lymph # (Auto) 0.6 L, [place] # (Auto) 0.2, Eos # (Auto) 0.2, Baso # (Auto) 0.0, Sodium 130 L, Potassium 3.7, Chloride 105, Carbon Dioxide 23, Anion Gap 5.7, BUN 7, Creatinine 0.50 L D, Estimated Creat Clear 47, Estimated GFR 124, Est GFR ( Amer) 150 D, Glucose 79, Calcium 8.0 L, Magnesium 2.2 D, Total Bilirubin 1.7 H, AST 37 H, ALT 15, Alkaline Phosphatase 90, Total Protein 5.6 L, Albumin 2.4 L, Globulin 3.2, Albumin/Globulin Ratio 0.8 L I & O for Last 24 hours: Intake & Output 06/01/24 06/02/24 06/03/24 06/04/24 23:59 23:59 23:59 23:59 Intake Total 250 / 300 1510 / 1510 420 / 660 360 / 360 Output Total 650 / 650 250 / 250 200 / 200 Balance 250 / 300 860 / 860 170 / 410 160 / 160 Weight 115 lb 114 lb 15.996 oz 198 lb 115 lb 11.2 oz Microbiology Reports for the Last 24 Hours: Microbiology 06/01/24 04:49 Urine,Clean Catch Urine Culture - Preliminary *Routine Abdominal Exam Abdominal: Present soft and normoactive bowel sounds Comments: Normoactive bowel sounds, soft, firm liver with splenomegaly, no ascites Assessment and Plan *Assessment and plan (1) Esophageal varices in cirrhosis: Status: Acute Category: Medical Code(s): K74.60 - Unspecified cirrhosis of liver; I85.10 - Secondary esophageal varices without bleeding (2) Portal hypertension: Status: Acute Category: Medical Code(s): K76.6 - Portal hypertension (3) GI bleed: Status: Acute Category: Medical Code(s): K92.2 - Gastrointestinal hemorrhage, unspecified (4) Gastric varices: Status: Acute Category: Medical Code(s): I86.4 - Gastric varices Plan 1. Cirrhosis with undetermined etiology. Her smooth muscle antibody was negative. Her hepatitis B surface antigen and hepatitis C antibody was negative. Would manage as outpatient presently. I will check hemochromatosis genetic assay because of increased iron levels. 2. Anemia?probable chronic. The patient does have portal hypertension with both esophageal and gastric varices. The esophageal varices were banded. I would manage medically with carvedilol. If patient has further acute bleeding, she will need evaluation at the [facility] because of the gastric varices and potential need for coiling (BRTO) or TIPS.
[2024-06-04] MEDS: CEFTRIAXONE SODIUM 1 GM in 0.9 % SODIUM CHLORIDE 50 ML IV (11:27)
[2024-06-04 11:57] VITALS: BP 109/63; PULSE 70; RESP 15; TEMP 36.7; O2SAT 98
[2024-06-04 12:11] LABS: Anti-Centromere B Antibodies <0.2 AI (0.0-0.9); Anti-DNA (DS) Ab Qn <1 IU/mL (0-9); Anti-Jo-1 <0.2 AI (0.0-0.9); Antichromatin Antibodies <0.2 AI (0.0-0.9); Antinuclear Antibodies (ANA) Positive (Negative); Antiscleroderma-70 Antibodies <0.2 AI (0.0-0.9); Ceruloplasmin 31.4 mg/dL (19.0-39.0); RNP Antibodies 3.9 AI (0.0-0.9); Sjogren's Anti-SS-A <0.2 AI (0.0-0.9); Sjogren's Anti-SS-B <0.2 AI (0.0-0.9)
--- NOTE | 2024-06-04 13:16 | P.DS_ITS ---
General Admission date:: 06/01/24 HPI HPI HPI: Mrs. Leblanc is a 63-year-old female who is here for admission after presenting with dyspnea on exertion and blurred vision and drop in hemoglobin. The patient's initial hemoglobin was 4.9. Her hematocrit was 16.7. She did receive 3 units of PRBCs and responded. Her hemoglobin and hematocrit today are 7.1 and 22.3. She does have thrombocytopenia with platelet count of 109,000. She does have a history of cirrhosis and esophageal varices. The patient's iron studies showed iron saturation of 80% with serum iron 307. Her AST 30, ALT 17 and alkaline phosphatase 121 are normal with total bilirubin 1.9 today. She reports no use of alcohol. She does state that she developed hepatitis at the age of 13. Her hepatitis C antibody testing is negative. She is Hemoccult positive. Her last CT scan of the abdomen in February 2022 showed distal esophageal varices. She has had variceal banding 3 times previously. She had been followed by the [facility] and briefly by GI nurse practitioner at [facility]. The patient did have severe splenomegaly consistent with portal hypertension. The patient has not had any recent imaging of the abdomen. The patient has had some lower extremity edema. She reports intermittent dark stools but reports no hematemesis, melena or hematochezia. Hospital Course Hospital Course Hospital Course: Sierra Leblanc is a 63-year-old female with a medical history significant for cirrhosis, varices presented with lightheadedness, weakness and admitted for symptomatic anemia, unstable varices. #Acute on chronic normocytic anemia #Esophageal, gastric varices #BRAND cirrhosis #Carlisle's esophagus #GERD ? Initial hemoglobin 4.6, improved to 7.2 after 3 units PRBC. Platelets 75, PT/INR normal, albumin 2.4. No signs of decompensation from cirrhosis standpoint. ? GI consulted, s/p EGD 06/03/2024 with grade 2 esophageal varices s/p band ligation x 4, rest of impression as below. Obtaining PATRICE comprehensive panel, alpha-1 antitrypsin labs and assessment for hemochromatosis. GI ordered smooth muscle antibody, mitochondrial antibody. ? Started carvedilol 3.125 mg twice daily, Protonix 40 mg twice daily, ferrous sulfate 325 mg daily. ? Will follow-up with GI within 1 week. #Hypertension ? Discontinued amlodipine, eplerenone. Started carvedilol as above. EGD impression: 1. Grade 2 esophageal varices with minimal stigmata status post band ligation x 4 2. 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 Mild portal gastropathy Total time spent on discharge: 32 minutes on chart review, counseling, documentation, and direct care with patient. Exam Data for Last 24 hours Vital signs and Labs for Last 24 Hours: Temp Pulse Resp BP Pulse Ox O2 Del Method O2 Flow Rate 98.1 F 70 15 109/63 L 98 Room Air 10 06/04/24 11:57 06/04/24 11:57 06/04/24 11:57 06/04/24 11:57 06/04/24 11:57 06/04/24 13:00 06/03/24 12:25 Laboratory Results - last 24 hr 06/02/24 04:58: Anti-Smooth Muscle Ab 8 06/03/24 05:05: Hepatitis A IgM Ab Negative, Hep Bs Antigen Negative, Hep B Core IgM Ab Negative, Hepatitis C Antibody Non reactive, HCV RNA PCR Test Info Comment 06/03/24 08:07: Ceruloplasmin 31.4, PATRICE Screen Positive A, PATRICE Comment Comment, BETTY-1 Antibody <0.2, SS-A Antibody <0.2, SS-B Antibody <0.2, Sm (Amaro) Antibody <0.2, BLADE BENDER FURNACE TENDER Antibody 3.9 H, Scl-70 Scleroderma Ab <0.2, Double Strand DNA Ab <1, Chromatin Antibody <0.2, Centromere B Antibody <0.2 06/03/24 16:07: Hgb 7.3 L, Hct 23.5 L 06/04/24 06:15: WBC 3.9 L, RBC 2.85 L, Hgb 7.2 L, Hct 23.7 L, MCV 83.2, MCH 25.3 L, MCHC 30.4 L, RDW 17.8 H, Plt Count 75 L D, MPV 10.4, Neut % (Auto) 72.9, Lymph % (Auto) 15.3, [place] % (Auto) 4.6, Eos % (Auto) 5.9, Baso % (Auto) 1.0, Neut # (Auto) 2.9, Lymph # (Auto) 0.6 L, [place] # (Auto) 0.2, Eos # (Auto) 0.2, Baso # (Auto) 0.0, Sodium 130 L, Potassium 3.7, Chloride 105, Carbon Dioxide 23, Anion Gap 5.7, BUN 7, Creatinine 0.50 L D, Estimated Creat Clear 47, Estimated GFR 124, Est GFR ( Amer) 150 D, Glucose 79, Calcium 8.0 L, Magnesium 2.2 D, Total Bilirubin 1.7 H, AST 37 H, ALT 15, Alkaline Phosphatase 90, Total Protein 5.6 L, Albumin 2.4 L, Globulin 3.2, Albumin/Globulin Ratio 0.8 L I & O for Last 24 hours: Intake & Output 06/01/24 06/02/24 06/03/24 06/04/24 23:59 23:59 23:59 23:59 Intake Total 250 / 300 1510 / 1510 420 / 660 360 / 360 Output Total 650 / 650 250 / 250 200 / 200 Balance 250 / 300 860 / 860 170 / 410 160 / 160 Weight 52.163 kg 52.163 kg 89.811 kg 52.481 kg Microbiology Reports for the Last 24 Hours: Microbiology 06/01/24 04:49 Urine,Clean Catch Urine Culture - Preliminary Constitutional Constitutional: no acute distress *Routine HEENT Exam Head: Present normocephalic Eye: Present EOMI and PERRL ENT: Present mucous membranes moist *Routine Neck Exam Neck: Present supple; Absent lymphadenopathy *Routine Respiratory Exam Respiratory: Present CTA bilaterally *Routine Cardiovascular Exam Cardiovascular: Present RRR *Routine Abdominal Exam Abdominal: Present soft and normoactive bowel sounds; Absent tenderness *Routine Extremities Exam Extremities: Absent cyanosis, clubbing or edema *Routine Skin Exam Skin: Present warm; Absent rash *Routine Neurological Exam Neurological: Present alert and oriented X3 Results Data Completed and Pending Labs on day of discharge: Labs from last 24 hours 06/04/24 06/03/24 06/03/24 06:15 16:07 08:07 WBC 3.9 L RBC 2.85 L Hgb 7.2 L 7.3 L Hct 23.7 L 23.5 L MCV 83.2 MCH 25.3 L MCHC 30.4 L RDW 17.8 H Plt Count 75 L D MPV 10.4 Neut % (Auto) 72.9 Lymph % (Auto) 15.3 [place] % (Auto) 4.6 Eos % (Auto) 5.9 Baso % (Auto) 1.0 Neut # (Auto) 2.9 Lymph # (Auto) 0.6 L [place] # (Auto) 0.2 Eos # (Auto) 0.2 Baso # (Auto) 0.0 Sodium 130 L Potassium 3.7 Chloride 105 Carbon Dioxide 23 Anion Gap 5.7 BUN 7 Creatinine 0.50 L D Estimated Creat Clear 47 Estimated GFR 124 Est GFR ( Amer) 150 D Glucose 79 Calcium 8.0 L Magnesium 2.2 D Total Bilirubin 1.7 H AST 37 H ALT 15 Alkaline Phosphatase 90 Total Protein 5.6 L Albumin 2.4 L Globulin 3.2 Albumin/Globulin Ratio 0.8 L Ceruloplasmin 31.4 PATRICE Screen Positive A PATRICE Comment Comment BETTY-1 Antibody <0.2 SS-A Antibody <0.2 SS-B Antibody <0.2 Sm (Amaro) Antibody <0.2 BLADE BENDER FURNACE TENDER Antibody 3.9 H Scl-70 Scleroderma Ab <0.2 Double Strand DNA Ab <1 Chromatin Antibody <0.2 Centromere B Antibody <0.2 Anti-Smooth Muscle Ab Hepatitis A IgM Ab Hep Bs Antigen Hep B Core IgM Ab Hepatitis C Antibody HCV RNA PCR Test Info 06/03/24 06/02/24 05:05 04:58 WBC RBC Hgb Hct MCV MCH MCHC RDW Plt Count MPV Neut % (Auto) Lymph % (Auto) [place] % (Auto) Eos % (Auto) Baso % (Auto) Neut # (Auto) Lymph # (Auto) [place] # (Auto) Eos # (Auto) Baso # (Auto) Sodium Potassium Chloride Carbon Dioxide Anion Gap BUN Creatinine Estimated Creat Clear Estimated GFR Est GFR ( Amer) Glucose Calcium Magnesium Total Bilirubin AST ALT Alkaline Phosphatase Total Protein Albumin Globulin Albumin/Globulin Ratio Ceruloplasmin PATRICE Screen PATRICE Comment BETTY-1 Antibody SS-A Antibody SS-B Antibody Sm (Amaro) Antibody BLADE BENDER FURNACE TENDER Antibody Scl-70 Scleroderma Ab Double Strand DNA Ab Chromatin Antibody Centromere B Antibody Anti-Smooth Muscle Ab 8 Hepatitis A IgM Ab Negative Hep Bs Antigen Negative Hep B Core IgM Ab Negative Hepatitis C Antibody Non reactive HCV RNA PCR Test Info Comment Preliminary micro results at discharge 06/01/24 04:49 Urine Culture - Preliminary Urine,Clean Catch DS: Diagnosis Discharge Diagnosis (1) Esophageal varices in cirrhosis: Status: Acute Code(s): K74.60 - Unspecified cirrhosis of liver; I85.10 - Secondary esophageal varices without bleeding (2) Portal hypertension: Status: Acute Code(s): K76.6 - Portal hypertension (3) GI bleed: Status: Acute Code(s): K92.2 - Gastrointestinal hemorrhage, unspecified (4) Gastric varices: Status: Acute Code(s): I86.4 - Gastric varices Meds Home Medications and Allergies Home Medications ?Medication ?Instructions ?Recorded ?Confirmed ?Type bumetanide 0.5 mg tablet 0.5 mg PO DAILYP PRN Edema 06/02/24 06/02/24 History tramadol 50 mg tablet 50 mg PO Q8HP PRN Moderate Pain 06/02/24 06/02/24 History (Scale Score 5-6) carvedilol 3.125 mg tablet 3.125 mg PO BID 30 days #60 tabs 06/04/24 Rx ferrous sulfate 325 mg (65 mg 325 mg PO DAILY 30 days #30 tabs 06/04/24 Rx iron) tablet pantoprazole 40 mg tablet,delayed 40 mg PO BID 30 days #60 tabs 06/04/24 Rx release New Prescriptions to Start Prescriptions: carvedilol Leroy Mendez ferrous sulfate Leroy Mendez pantoprazole Leroy Mendez Allergies Allergy/AdvReac Type Severity Reaction Status Date / Time No Known Allergies Allergy Verified 04/30/24 11:16 Discharge Plan Disposition Patient Disposition: Home, Self-Care Condition: Fair Discharge Order Discharge Orders: Discharge Order (Routine); Ordered 06/04/24 Ordered By: Leroy Mendez Follow up Plan Follow up with: Jarret Paez II, MD [Staff Physician] - 06/25/24 11:00 am Gold Gongora MD [Primary Care Provider] - 06/11/24 3:00 pm (in [place] ) Prescriptions/Medication Reconciliation: New pantoprazole 40 mg Tablet,Delayed Release (Dr/Ec) 40 mg PO BID 30 Days Qty: 60 0RF carvedilol 3.125 mg tablet 3.125 mg PO BID 30 Days Qty: 60 0RF Rx Instructions: must administer with a meal/food ferrous sulfate 325 mg (65 mg iron) tablet 325 mg PO DAILY 30 Days Qty: 30 0RF Continued bumetanide 0.5 mg tablet 0.5 mg PO DAILYP PRN (Reason: Edema) Patient Comments: TAKE 1 TABLET BY MOUTH ONCE DAILY NEEDED FOR SWELLING tramadol 50 mg tablet 50 mg PO Q8HP PRN (Reason: Moderate Pain (Scale Score 5-6)) Problem Reconciliation Problems Reviewed?: Yes Patient Discharge Instructions Stand Alone Forms: [facility] Work Release Patient Instructions: Upper GI Endoscopy, DI for Esophageal Varices, DI for Cirrhosis, DI for Urinary Tract Infection (UTI), Moderate Sedation Print Language: Azerbaijani Providers Primary Care Provider: Gold Gongora Admit Provider: Nabil Gamino Attending Provider: Nabil Gamino
[2024-06-04 13:21] VITALS: BP 104/57; BP 108/55; BP 111/60; PULSE 63; PULSE 68; PULSE 70
[2024-06-04 14:03] LABS: Liver-Kidney Microsomal Ab 1.7 Units (0.0-20.0)
[2024-06-04 14:11] LABS: AFP, Tumor Marker <1.8 ng/mL (0.0-9.2)
[2024-06-04 15:31] LABS: Actin (Smooth Muscle) Antibody 3 Units (0-19); Mitochondrial (M2) Antibody <20.0 Units (0.0-20.0)
[2024-06-04 16:18] LABS: Angiotensin Converting Enzyme 55 U/L (14-82)
[2024-06-05 06:34] LABS: Hepatitis B Surface Antigen Negative (Negative)
--- NOTE | 2024-06-05 10:23 | SW/DCPLANNER ---
Spoke with patient on the phone. Patient stated that is doing well. Patient stated that she is aware of her upcoming appointments. Patient stated that she was able to get her new medicine from clinic pharmacy. Patient stated that she has no concerns or questions at this time. [place]
[2024-06-08 02:09] LABS: Zinc 44 ug/dL (44-115)
[2024-06-09 03:36] LABS: PTH Related Peptide < 2.0 pmol/L (.)
[2024-06-09 22:30] LABS: Alpha-1-Antitrypsin 210 mg/dL (101-187)
--- OUTSIDE RECORDS SUMMARY | 2024-06-20 15:05 | XMS_ITS ---
Care Plan - [facility] Created on: June 20, 2024 Sierra Leblanc : 1960 Sex: Female Author Organization [facility] Address [address] [place] [address] Phone Care Team Providers Care Civil Cadd Technician Name Role Phone HARI REID, AMARA Unavailable [phone] Elliott REID, Jude Unavailable [phone]
--- OUTSIDE RECORDS SUMMARY | 2024-06-20 15:05 | XMS_ITS | Clinical Summary ---
Author Organization [facility] , [facility] Address [address] [place] [address] Phone Care Team Providers Care Automotive Consultant Name Role Phone HARI REID, AMARA Unavailable [phone] Elliott REID, Jude Unavailable [phone] Reason for Visit and Chief Complaint The Chief Complaint is: Low back pain Problems Includes: Problems addressed during this encounter and other active Problems Current Visit Onset Date Resolved Date Provider Esperanza moore Status Lower Back Pain 09/09/2022 Az Amador PA-C A ctive Last Documented On 3 9:26AM ; [facility] Plan of Treatment Patient was seen by myself Az Amador PA-C. On we will have her see Dr. Cota to review both the lumbar and thoracic spine MRIs. - Last Documented On 09/20/2022 5:23PM ; [facility] Pending Tests Order Diagnosis Results Due Ordering P rovider Radiology - MRI MRI Thoracic Spine Low back pain , unspecified 09/23/22 Az Amador PA-C Last Documented On 3 12:18PM ; [facility] Radiology - MRI MRI Lumbar Spine Low back pain, unspecified 09/23/22 Az Amador PA-C Last Documented On 3 12:18PM ; [facility] Assessments Includes: Assessments from this encounter Findings T7 and possibly T8 compression fractures - Last Documented On 09/20/2022 5:23PM ; [facility] Medical Equipment - Implanted Devices Includes: Current Devices No Medical Equipment Recorded Medications Includes: Medications discussed during this encounter and other current Medications Current Medications (continue as prescribed) Pantoprazole Sodium 40 MG Oral Tablet Delayed Release 09/22/2022 Provider: Diagnosis: Last Documented On 3 9:47AM By Ana Rosa Ordaz ; [facility], [facility] MAGnesium-Oxide 400 (240 Mg) MG Oral Tablet 09/22/2022 Provider: Diagnosis: Last Documented On 3 9:48AM By Ana Rosa Ordaz ; [facility], [facility] oxyCODONE-Acetaminophen 5-325 MG Oral Tablet Provider: Diagnosis: Last Documented On 3 9:26AM By Nori Rosales ; [facility], [facility] predniSONE 20 MG Oral Tablet 09/02/2022 Provider: Diagnosis: Last Documented On 3 9:26AM By Nori Rosales ; [facility], [facility] Constulose 10 GM/15ML Oral Solution 08/24/2022 Provi alba: AMARA NORIEGA MD Diagnosis: Last Documented On 3 9:26AM By Nori Rosales ; [facility], [facility] tiZANidine HCl 2 MG Oral Tablet 08/09/2022 Provider: AMARA NORIEGA MD Diagnosis: Last Documented On 3 9:26AM By Nori Rosales ; [facility], [facility] Medications Administered Includes: Administered Medications from this encounter No Administered Medications Recorded Vital Signs Includes: Vital Signs from this encounter Vital Name 09/20/2022 03:10P Height (in) 65 Weight (lb) 120 Body Mass Index 20 Body Surface Area 1.6 Note: mg Last Documented: On 09/20/2022 3:10PM ; [facility], [facility] Results Includes: Results discussed during this encounter No Results Recorded For Specified Dates History of Present Illness Includes: History of Present Illness from this encounter JAMAL Leblanc is a 61 year old female. - Allergy list reviewed - Problem list reviewed - Medication list reviewed Patient is here today for follow-up of her thoracic and lumbar spine MRIs. She had a previous history of having a kyphoplasty at L3 back in 2020 with a different surgeon in [place]. She is here to be doing okay until last few months when she had bent over in her yard and felt something kind of pop in her back most this pain seems to be in the middle part of her back no radicular symptoms. 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 ; [facility] Smoking Status Unknown Procedures and Surgical History Includes: Procedures from this encounter Procedures Code Diagnosis Performing Provider Service L ocation Service Date use of tobacco assessment performed 1000F Last Documented On 3 3:10PM ; [facility] Medical History Includes: Medical History addressed during this encounter No Medical History Recorded Family History Includes: Family History addressed during this encounter No Family History Recorded Review of Systems Includes: Review of Systems from this encounter Systemic: Not feeling tired, no recent weight loss, and no recent weight gain. Head: No headache and no sinus pain. Eyes: No vision problems, no Cataracts, no Glasses/Contacts, and no Glaucoma. Otolaryngeal: No hearing loss and no tinnitus. Cardiovascular: No chest pain or discomfort, no palpitations, no Hypertension, and no High Cholesterol. Pulmonary: No daytime asthma symptoms and no chronic cough. No wheezing. Gastrointestinal: No heartburn and no abdominal pain. No Indigestion, no Acid Reflux, no Peptic Ulcer, no GI Stomach Bleed, and no Ulcers. Endocrine: No hot flashes, no muscle weakness, no Diabetes, no Hypothyroid, and no Hyperthyroid. Hematologic: No easy bleeding, no tendency for easy bruising, and no Anemia. Musculoskeletal: No Arthritis and no lower back pain. No soft tissue swelling and no localized joint pain. Neurological: No dizziness, no convulsions, and no numbness. Psychological: No anxiety, no emotional lability, no depression, and no insomnia. Not crying for no reason. Skin: No dry skin. No Ulcers, no Scars, and no rash. Allergic and Immunologic: No complaint of seasonal allergic reaction. Mental Status Includes: Mental Status from this encounter Description No anxiety Functional Status Includes: Functional Status from this encounter No Functional Status Recorded Physical Exam Includes: Physical Exam from this encounter Allergies Includes: Active Allergies No Known Allergies Encounters Encounter Provider Location Date Check-In Time Check- Out Time Diagnosis Follow Up Az Amador [facility]C [facility] 3:09PM 3:49PM Insurance Includes: Active Insurance Policies Plan Name Member ID Group # Subscriber Relationship Effect jose Dates - [facility] [id number] Sierra Leblanc Self Clinical Notes Includes: Clinical Notes from this encounter * Progress note Date Encounter Last Documented by 09/20/2022 Follow Up Last documented on 09/20/2022; 5:23 PM, Az Amador PA-C; [facility], [facility] Active Problems & Conditions - Lower Back Pain Chief Complaint The Chief Complaint is: Low back pain. History of Present Illness Sierra Leblanc is a 61 year old female. - Allergy list reviewed - Problem list reviewed - Medication list reviewed Patient is here today for follow-up of her thoracic and lumbar spine MRIs. She had a previous history of having a kyphoplasty at L3 back in 2020 with a different surgeon in [place]. She is here to be doing okay until last few months when she had bent over in her yard and felt something kind of pop in her back most this pain seems to be in the middle part of her back no radicular symptoms. Current Medication - Constulose 10 GM/15ML Oral Solution 30 days, 0 refills - oxyCODONE-Acetaminophen 5-325 MG Oral Tablet 5 days, 0 refills - predniSONE 20 MG Oral Tablet 5 days, 0 refills - tiZANidine HCl 2 MG Oral Tablet 30 days, 0 refills Social History Tobacco use: Tobacco non-user. 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 Allergies - No Known Allergies Review Of Systems Systemic: Not feeling tired, no recent weight loss, and no recent weight gain. Head: No headache and no sinus pain. Eyes: No vision problems, no Cataracts, no Glasses/Contacts, and no Glaucoma. Otolaryngeal: No hearing loss and no tinnitus. Cardiovascular: No chest pain or discomfort, no palpitations, no Hypertension, and no High Cholesterol. Pulmonary: No daytime asthma symptoms and no chronic cough. No wheezing. Gastrointestinal: No heartburn and no abdominal pain. No Indigestion, no Acid Reflux, no Peptic Ulcer, no GI Stomach Bleed, and no Ulcers. Endocrine: No hot flashes, no muscle weakness, no Diabetes, no Hypothyroid, and no Hyperthyroid. Hematologic: No easy bleeding, no tendency for easy bruising, and no Anemia. Musculoskeletal: No Arthritis and no lower back pain. No soft tissue swelling and no localized joint pain. Neurological: No dizziness, no convulsions, and no numbness. Psychological: No anxiety, no emotional lability, no depression, and no insomnia. Not crying for no reason. Skin: No dry skin. No Ulcers, no Scars, and no rash. Allergic and Immunologic: No complaint of seasonal allergic reaction. Physical Findings - Vitals taken 09/20/2022 03:10 pm mg Height 65 in Weight 120 lbs Body Mass Index 20 kg/m2 Body Surface Area 1.6 m2 Previous scar her back looked healed is tender in both the thoracic and lumbar spine and some over the thoracic lumbar junction she has 5 out of 5 EHL gastroc quadricep tibialis anterior strength bilaterally 2+ Achilles and patellar reflexes bilaterally Tests Outside facility x-rays of her CT spine of the thoracic and lumbar area show chronic compression fractures likely T8-T9 hard to know there is anything new her lumbar spine CT showed previous compression deformity at L2-3 with degenerative changes L2-L3 there may be some old fractures L4 may be L5 also is hard to tell based off the CT MRI lumbar spine showed no acute fracture but there may be some abnormality at L4 and thoracic spine MRI showed T7and T8 compression fracture n but was read as T7 and T9 fractures Assessment T7 and possibly T8 compression fractures Previous Tests Available previous imaging studies were reviewed Available previous history reviewed Plan Patient was seen by myself Az Amador PA-C. On we will have her see Dr. Cota to review both the lumbar and thoracic spine MRIs. Notes This dictation was done with voice recognition software and may contain errors and omissions. Practice Management Use of tobacco assessment performed. Care Team - AMARA NORIEGA MD - STEEL BURNER
--- OUTSIDE RECORDS SUMMARY | 2024-06-20 15:05 | XMS_ITS ---
Author Organization [facility] , [facility] Address [address] [place] [address] Phone Care Team Providers Care Registered Nurse Obstetrics Name Role Phone HARI REID, AMARA Unavailable [phone] Elliott REID, Jude Unavailable [phone] Problems Includes: Active, inactive, and resolved Problems All Visits Onset Date Resolved Date Provider Condition S tatus Lower Back Pain 09/09/2022 zA Amador PA-C A ctive Last Documented On 3 9:26AM ; [facility] Plan of Treatment Pending Tests Order Diagnosis Results Due Ordering P rovider Radiology - MRI MRI Thoracic Spine Low back pain , unspecified 09/23/22 Az Amador PA-C Last Documented On 3 12:18PM ; [facility] Radiology - MRI MRI Lumbar Spine Low back pain, unspecified 09/23/22 Az Amador PA-C Last Documented On 3 12:18PM ; [facility] Referrals To Diagnosis Consult for Pain Management Note: dr. best -banner trial - pt prefers pm appt Last Documented On 4 9:47AM ; [facility] Assessments Includes: Assessments for all patient encounters No Assessments Recorded Medical Equipment - Implanted Devices Includes: Current and historical Devices No Medical Equipment Recorded Medications Includes: Current and historical Medications Current Medications (continue as prescribed) Pantoprazole Sodium 40 MG Oral Tablet Delayed Release 09/22/2022 Provider: Diagnosis: Last Documented On 3 9:47AM By Ana Rosa Ordaz ; [facility] MAGnesium-Oxide 400 (240 Mg) MG Oral Tablet 09/22/2022 Provider: Diagnosis: Last Documented On 3 9:48AM By Ana Rosa Ordaz ; [facility] oxyCODONE-Acetaminophen 5-325 MG Oral Tablet 3 Provider: Diagnosis: Last Documented On 3 9:26AM By Nori Rosales ; [facility] predniSONE 20 MG Oral Tablet 09/02/2022 Provider: Diagnosis: Last Documented On 3 9:26AM By Nori Rosales ; [facility] Constulose 10 GM/15ML Oral Solution 08/24/2022 Provi alba: AMARA NORIEGA MD Diagnosis: Last Documented On 3 9:26AM By Nori Rosales ; [facility] tiZANidine HCl 2 MG Oral Tablet 08/09/2022 Provider: AMARA NORIEGA MD Diagnosis: Last Documented On 3 9:26AM By Nori Rosales ; [facility], [facility] Medications Administered Includes: Administered Medications in patient's chart No Administered Medications Recorded Results Includes: Results from 06/21/2023 through 06/20/2024 No Results Recorded For Specified Dates History of Present Illness History of Present Illness not supported for this document type No History of Present Illness Recorded Social History Description Last Updated Caffeine use 09/22/2022 Last Documented On 4 9:18AM ; [facility] Exercising regularly 09/22/2022 Last Documented On 4 9:18AM ; [facility] Not a current smoker. 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 Last Documented On 3 5:23PM ; [facility] Smoking Status Unknown Procedures and Surgical History Surgical History Last Updated Past Surgical History: ~Nodule s removed from throat 09/22/2022 Last Documented On 4 9:18AM ; [facility], [facility] Medical History Includes: Medical History in patient's chart Description Last Updated History of Anemia 09/22/2022 Last Documented On 4 9:18AM ; [facility], [facility] History of arthritis 09/22/2022 Last Documented On 4 9:18AM ; [facility], [facility] History of Fractures 09/22/2022 Last Documented On 4 9:18AM ; [facility], [facility] History of hepatitis 09/22/2022 Last Documented On 4 9:18AM ; [facility], [facility] History of History of Blood Transfusion 09/22/2022 Last Documented On 4 9:18AM ; [facility], [facility] History of Liver Disease 09/22/2022 Last Documented On 4 9:18AM ; [facility], [facility] History of Previous Fractures 09/22/2022 Last Documented On 4 9:18AM ; [facility], [facility] Family History Includes: Family History in patient's chart Description Last Updated Diabetes mellitus 09/22/2022 Last Documented On 4 9:18AM ; [facility], [facility] Family history of cancer 09/22/2022 Last Documented On 4 9:18AM ; [facility], [facility] Family history of heart disease 09/23/19 23 Last Documented On 4 9:18AM ; [facility], [facility] Family history of rheumatoid arthritis 0 09/22/2022 Last Documented On 4 9:18AM ; [facility], [facility] Stroke / Seizures 09/22/2022 Last Documented On 4 9:18AM ; [facility], [facility] Review of Systems Review of Systems not supported for this document type No Review of Systems Recorded Mental Status Description No anxiety Functional Status No Functional Status Recorded Physical Exam Physical Exam not supported for this document type No Physical Exam Recorded Allergies Includes: Active, inactive, and resolved Allergies No Known Allergies Insurance Includes: Active Insurance Policies Plan Name Member ID Group # Subscriber Relationship Effect jose Dates 1 - [facility] [id number] Sierra [employer] Self Clinical Notes Includes: Signed Clinical Notes starting from 02/24/2022 No Clinical Notes Recorded
--- OUTSIDE RECORDS SUMMARY | 2024-06-20 15:05 | XMS_ITS | Clinical Summary ---
Author Organization [facility] , [facility] Address [address] [place] [address] Phone Care Team Providers Care Director Of Technology Name Role Phone HARI REID, AMARA Unavailable [phone] Elliott REID, Jude Unavailable [phone] Reason for Visit and Chief Complaint The Chief Complaint is: Low back pain Problems Includes: Problems addressed during this encounter and other active Problems Current Visit Onset Date Resolved Date Provider Esperanza moore Status Lower Back Pain 09/09/2022 Az Amador PA-C A ctive Last Documented On 3 9:26AM ; [facility] Plan of Treatment Patient was seen by myself Az Amador PA-C. Patient will follow up after lumbar spine and thoracic spine MRI to see if any of these are new compression fractures. - Last Documented On 09/09/2022 12:18PM ; [facility] Pending Tests Order Diagnosis Results Due Ordering P rovider Radiology - MRI MRI Thoracic Spine Low back pain , unspecified 09/23/22 Az Amador PA-C Last Documented On 3 12:18PM ; [facility] Radiology - MRI MRI Lumbar Spine Low back pain, unspecified 09/23/22 Az Amador PA-C Last Documented On 3 12:18PM ; [facility] Assessments Includes: Assessments from this encounter Findings Thoracic and lumbar back pain with a history of a previous kyphoplasty at L3 possible new compression fractures - Last Documented On 09/09/2022 12:18PM ; [facility] Medical Equipment - Implanted Devices Includes: Current Devices No Medical Equipment Recorded Medications Includes: Medications discussed during this encounter and other current Medications Current Medications (continue as prescribed) Pantoprazole Sodium 40 MG Oral Tablet Delayed Release 09/22/2022 Provider: Diagnosis: Last Documented On 3 9:47AM By Ana Rosa Ordaz ; [facility], [facility] MAGnesium-Oxide 400 (240 Mg) MG Oral Tablet 09/22/2022 Provider: Diagnosis: Last Documented On 3 9:48AM By Ana Rosa Ordaz ; [facility], [facility] oxyCODONE-Acetaminophen 5-325 MG Oral Tablet Provider: Diagnosis: Last Documented On 3 9:26AM By Nori Rosales ; [facility], [facility] predniSONE 20 MG Oral Tablet 09/02/2022 Provider: Diagnosis: Last Documented On 3 9:26AM By Nori Rosales ; [facility], [facility] Constulose 10 GM/15ML Oral Solution 08/24/2022 Provi alba: AMARA NORIEGA MD Diagnosis: Last Documented On 3 9:26AM By Nori Rosales ; [facility], [facility] tiZANidine HCl 2 MG Oral Tablet 08/09/2022 Provider: AMARA NORIEGA MD Diagnosis: Last Documented On 3 9:26AM By Nori Rosales ; [facility], [facility] Medications Administered Includes: Administered Medications from this encounter No Administered Medications Recorded Vital Signs Includes: Vital Signs from this encounter Vital Name 09/09/2022 09:27A Height (in) 65 Weight (lb) 120 Body Mass Index 20 Body Surface Area 1.6 Note: mg Last Documented: On 09/09/2022 9:33AM ; [facility], [facility] Results Includes: Results discussed during this encounter No Results Recorded For Specified Dates History of Present Illness Includes: History of Present Illness from this encounter JAMAL Leblanc is a 61 year old female. - Allergy list reviewed - Problem list reviewed - Medication list reviewed She is here today complaints of thoracic and lower back pain patient's had a problem with her lower back for 3 to 4 months as well as the thoracic area after she bent over in her yard and felt something pop in her back. She was cleaning up the yard at that point in time. She denies any radicular symptoms. She had a previous kyphoplasty at L3 back in 2020 she believes she has difficulties laying down sitting and turning over. She was seen in the emergency room due to the pain presents here today for follow-up after the emergency room visit. She also describes some sort of an infection she does not know exactly what that was after her previous kyphoplasty Social History No Social History Recorded - Smoking Status Unknown Medical History Includes: Medical History addressed during this encounter No Medical History Recorded Family History Includes: Family History addressed during this encounter No Family History Recorded Review of Systems Includes: Review of Systems from this encounter No Review of Systems Recorded Mental Status Includes: Mental Status from this encounter No Mental Status Recorded Functional Status Includes: Functional Status from this encounter No Functional Status Recorded Physical Exam Includes: Physical Exam from this encounter Allergies Includes: Active Allergies No Known Allergies Encounters Encounter Provider Location Date Check-In Time Check-Out Time Diagnosis Physician Specified Az Amador PA-C [facility] 09/10/19 23 9:10AM 9:50AM Insurance Includes: Active Insurance Policies Plan Name Member ID Group # Subscriber Relationship Effect jose Dates 1 - [facility] [id number] Sierra Leblanc Self Clinical Notes Includes: Clinical Notes from this encounter * Progress note Date Encounter Last Documented by 09/09/2022 Physician Specified Last ismael velazquez on 09/09/2022; 12:18 PM, Az Amador PA-C; [facility], [facility] Active Problems & Conditions - Lower Back Pain Chief Complaint The Chief Complaint is: Low back pain. History of Present Illness Sierra Leblanc is a 61 year old female. - Allergy list reviewed - Problem list reviewed - Medication list reviewed She is here today complaints of thoracic and lower back pain patient's had a problem with her lower back for 3 to 4 months as well as the thoracic area after she bent over in her yard and felt something pop in her back. She was cleaning up the yard at that point in time. She denies any radicular symptoms. She had a previous kyphoplasty at L3 back in 2020 she believes she has difficulties laying down sitting and turning over. She was seen in the emergency room due to the pain presents here today for follow-up after the emergency room visit. She also describes some sort of an infection she does not know exactly what that was after her previous kyphoplasty Current Medication - Constulose 10 GM/15ML Oral Solution 30 days, 0 refills - oxyCODONE-Acetaminophen 5-325 MG Oral Tablet 5 days, 0 refills - predniSONE 20 MG Oral Tablet 5 days, 0 refills - tiZANidine HCl 2 MG Oral Tablet 30 days, 0 refills Allergies - No Known Allergies Physical Findings - Vitals taken 09/09/2022 09:27 am mg Height 65 in Weight 120 lbs [...] hard to tell based off the CT Assessment Thoracic and lumbar back pain with a history of a previous kyphoplasty at L3 possible new compression fractures Previous Tests Available previous imaging studies were reviewed Available previous history reviewed Plan StartCited - Low back pain, unspecified Radiology/MRI: MRI Thoracic Spine, MRI Lumbar Spine EndCited Patient was seen by myself Az Amador PA-C. Patient will follow up after lumbar spine and thoracic spine MRI to see if any of these are new compression fractures. Notes This dictation was done with voice recognition software and may contain errors and omissions. Care Team - AMARA NORIEGA MD - SALES SOLUTIONS REPRESENTATIVE
== END 2024-06-04 14:21 | disposition home or self-care (01) | DRG 811 ==
LOC: ER 19:35 → 2ND 21:30
PROVIDERS: Internal Medicine Gastroenterology; Nurse Practitioner; Nurse Practitioner Family; Admitting Provider Internal Medicine Adolescent Medicine; Emergency Provider Emergency Medicine; PCP Internal Medicine Adolescent Medicine; Visit Provider Internal Medicine Adolescent Medicine
PROC: 0DJ08ZZ Inspection of Upper Intestinal Tract, Via Natural or Artificial Opening Endoscopic (ICD-10-PCS; principal; 2024-06-03 13:00)
DX: D64.9 Anemia, unspecified (principal); K31.811 Angiodysplasia of stomach and duodenum with bleeding; I85.00 Esophageal varices without bleeding; K76.6 Portal hypertension; K44.9 Diaphragmatic hernia without obstruction or gangrene; K75.81 Nonalcoholic steatohepatitis (NASH); K22.70 Barrett's esophagus without dysplasia; Z79.899 Other long term (current) drug therapy; R29.6 Repeated falls; R16.1 Splenomegaly, not elsewhere classified; K74.60 Unspecified cirrhosis of liver
CPT/HCPCS: 36415; 80053; 80074; 81001; 81256; 82103; 82104; 82105; 82164; 82390; 82397; 82525; 83540; 83550; 83605; 83690; 83735; 84630; 85014; 85018; 85025; 85044; 85610; 85730; 86038; 86255; 86256; 86376; 86803; 86850; 87086; 87340; 87389; 93005; 93975; 99285; C1889; C2618; J0696; J1171; J2405; J3475; J7030; P9016; S0028

== ENCOUNTER 2024-06-08 18:47 | Emergency (ER) | payer BC, SELFPAY ==
[2024-06-08] VITALS (16 sets, daily range): BP systolic 98–129; BP diastolic 56–69; PULSE 69–86; RESP 12–21; TEMP 36.6; O2SAT 96–100; BMI 19.1
--- NOTE | 2024-06-08 19:15 | CT_ITS ---
PROCEDURE INFORMATION: Exam: CTA Abdomen and Pelvis With Contrast Exam date and time: 06/08/2024 9:21 PM Age: 63 years old Clinical indication: Other: Rectal bleeding; Additional info: Lower gi bleed protocol pls TECHNIQUE: Imaging protocol: Computed tomographic angiography of the abdomen and pelvis with contrast. Exam focused on the arteries. 3D rendering (Not supervised by radiologist): MIP and/or 3D reconstructed images were created by the technologist. Radiation optimization: All CT scans at this facility use at least one of these dose optimization techniques: automated exposure control; mA and/or kV adjustment per patient size (includes targeted exams where dose is matched to clinical indication); or iterative reconstruction. Contrast material: ISOUVE 370; Contrast volume: 80 ml; Contrast route: INTRAVENOUS (IV); COMPARISON: CT ABDOMEN PELVIS W CON 02/28/2022 1:15 AM FINDINGS: Aorta: No aortic aneurysm. No aortic dissection. Celiac trunk and mesenteric arteries: No occlusion or significant stenosis. Renal arteries: No occlusion or significant stenosis. Right iliac arteries: No occlusion or significant stenosis. Left iliac arteries: No occlusion or significant stenosis. Veins: Extensive retroperitoneal and perisplenic collateral vessels. Liver: Heterogeneous with irregular contour. No mass. Gallbladder and biliary ducts: Contracted without calculus or wall thickening. No biliary ductal dilatation. Pancreas: Unremarkable. No mass. No ductal dilation. Spleen: Measures up to 18 cm. Adrenal glands: Unremarkable. No mass. Kidneys and ureters: Bilateral nonobstructive calculi measuring up to 0.4 cm in left kidney. No solid mass. No hydronephrosis. Stomach and bowel: Unremarkable. No obstruction. No mucosal thickening. Appendix: Not visualized. Intraperitoneal space: Moderate abdominopelvic ascites. No free air. Lymph nodes: Unremarkable. No enlarged lymph nodes. Urinary bladder: Unremarkable. No mass. Reproductive: Unremarkable as visualized. Bones/joints: Chronic postsurgical changes L2/3. No acute osseous findings. Soft tissues: Unremarkable. IMPRESSION: 1. Unremarkable CTA without obvious source of acute hemorrhage identified. 2. Cirrhotic liver without obvious mass. 3. Splenomegaly with multiple collateral vessels reflecting sequelae of portal hypertension. 4. Abdominopelvic ascites. 5. Nonobstructive renal calculi.
--- NOTE | 2024-06-08 19:16 | ED_ITS ---
Discharge Plan Disposition Patient Disposition: Xfer Short-Term Hosp Chief Complaint: GI Bleed Prescriptions Prescriptions: No Action bumetanide 0.5 mg tablet 0.5 mg PO DAILYP PRN (Reason: Edema) Patient Comments: TAKE 1 TABLET BY MOUTH ONCE DAILY NEEDED FOR SWELLING tramadol 50 mg tablet 50 mg PO Q8HP PRN (Reason: Moderate Pain (Scale Score 5-6)) pantoprazole 40 mg Tablet,Delayed Release (Dr/Ec) 40 mg PO BID 30 Days Qty: 60 0RF carvedilol 3.125 mg tablet 3.125 mg PO BID 30 Days Qty: 60 0RF Rx Instructions: must administer with a meal/food ferrous sulfate 325 mg (65 mg iron) tablet 325 mg PO DAILY 30 Days Qty: 30 0RF Referrals Follow up/Referrals: Gold Gongora MD [Primary Care Provider] - See instructions Clinical Impressions Clinical Impression: Hematochezia, Cirrhosis, Anemia, Esophageal varices, Acute hypokalemia Stand Alone Forms Stand Alone Forms: Transfer Record - ED Instructions Patient Instructions: DI for Gastrointestinal Bleeding Print Language Print Language: Latvian Discharge ED Provider: Naun Carson General Adult HPI <Naun Carson MD - Last Filed: 06/08/24 23:47> General Chief complaint: GI Bleed Stated complaint: Rectal bleeding Time Seen by Provider: 06/08/24 19:01 Mode of Arrival: Ambulatory Source of Information: Patient Description of Symptoms (Recalled from ER Triage Doc. by RN): pt presents to ED with c/o rectal bleeding. pt reports that she recently had banding for varices. pt reports she went to restroom and had BRBPR in toiley and on paper. 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 States that she had a bloody bowel movement today just prior to arrival. States that she got down to go pee whenever she had a large amount of bloody discharge from her rectum. Denies any abdominal pain. States that she was recently hospitalized with esophageal varices banding. Related Data Home Medications ?Medication ?Instructions ?Recorded ?Confirmed bumetanide 0.5 mg tablet 0.5 mg PO DAILYP PRN Edema 06/02/24 06/02/24 tramadol 50 mg tablet 50 mg PO Q8HP PRN Moderate Pain 06/02/24 06/02/24 (Scale Score 5-6) Previous Rx's ?Medication ?Instructions ?Recorded carvedilol 3.125 mg tablet 3.125 mg PO BID 30 days #60 tabs 06/04/24 ferrous sulfate 325 mg (65 mg 325 mg PO DAILY 30 days #30 tabs 06/04/24 iron) tablet pantoprazole 40 mg tablet,delayed 40 mg PO BID 30 days #60 tabs 06/04/24 release Allergies Allergy/AdvReac Type Severity Reaction Status Date / Time No Known Allergies Allergy Verified 04/30/24 11:16 [facility] <Naun Carson MD - Last Filed: 06/08/24 23:47> [facility] Disclaimer: The information contained in this section may have been updated after the patient was seen, as this information can be updated by other users. Medical History (Updated 06/08/24 @ 21:30 by Naun Carson MD) Peripheral edema Dizziness Hemorrhoid Chronic anemia Closed fracture of right distal radius and ulna Patient left without being seen ABLA (acute blood loss anemia) Bleeding esophageal varices Acute upper gastrointestinal bleeding Fall Forehead abrasion Contusion of left arm Contusion of left shoulder Sciatic leg pain Compression fracture Cirrhosis Thrombocytopenia Sepsis Pyelonephritis UTI (urinary tract infection) Radiculopathy Low back pain Contusion, shoulder /upper arm Sacroiliac joint dysfunction of right side Removal of staple Scalp laceration Leukopenia Anemia Vertigo Anemia Hypertension, portal Closed fracture of left radius with malunion Osteoporosis Liver disease Arthritis Valvular heart disease Vocal cord nodule Hx of esophageal varices Surgical History Hx of esophagogastroduodenoscopy H/O colonoscopy H/O section Family History Other Family history of Alzheimer's disease Family history of cancer Family history of diabetes mellitus type II Family history of stroke Social History Smoking Status: Former smoker alcohol intake: never substance use type: denies use current occupational status: employed and other Travel in the last 8 weeks: None household members: significant other housing: house caffeine: No Have you lived/traveled outside US in past 30 days?: No Contact w/someone who lives/traveled outside US past 30 days?: No Exposure to someone with infectious disease in past 14 days?: No Do you have a fever (greater than 100.4 F or 38 C)?: No Have you tested positive for COVID-19: No Exposed to someone with COVID-19 in past 14 days?: No Do you have a sore throat?: No Do you have a cough?: No Do you have any weakness?: No Do you have any diarrhea?: No Are you experiencing any unusual bleeding?: No Do you have any muscle aches/pain?: No Do you have any abdominal pain?: No Are you experiencing loss of taste or smell?: No Other Medical History Have you received the Flu Vaccine for this season: No Have you received the Pneumonia Vaccine: No <Naun Carson MD - Last Filed: 06/08/24 23:47> ROS Obtained: Yes All systems reviewed & no additional complaints except as documented Physical Exam <Naun Carson MD - Last Filed: 06/08/24 23:47> General General appearance: alert and in no apparent distress Comment: Pale appearing, chronically ill Eye Eye exam: Present normal appearance, PERRL and EOMI Respiratory Respiratory exam: Present normal lung sounds bilaterally; Absent respiratory distress Cardiovascular Cardiovascular exam: Present regular rate and normal rhythm Abdominal Exam Abdominal exam: Present soft; Absent distention, tenderness, guarding or rebound Comment: Protuberant Extremities Exam Extremities exam: Present normal inspection and other (Symmetric 2+ bilateral lower extremity edema) Neurological Exam Neurological exam: Present alert and oriented X3 Skin Skin exam: Present warm and dry Medical Decision Making <Naun Carson MD - Last Filed: 06/08/24 23:47> Medical Records Medical records reviewed: Yes I reviewed the patient's medical records. Screening: Per USPSTF and CDC recommendations, given the prevalence of disease in our region, it is our hospital?s policy to screen for HIV and viral Hepatitis for all patients aged 18 and over and those with ongoing risk factors. MR Comment: Hospital medicine discharge summary from 06/04/2024 notable for patient's past medical history as noted above in admission with esophageal varices. Had grade 2 esophageal varices status post band ligation x 4. Also noted gastric fundus varices Rufino Inquiry Pt receiving controlled substance: No Vital Signs: 06/08/24 19:03 06/08/24 19:10 06/08/24 19:15 Temperature 97.9 F Temperature Source Oral Pulse Rate 81 82 Pulse Rate [Left Radial] 69 Respiratory Rate 16 Blood Pressure Blood Pressure [Right Arm] 129/68 Blood Pressure Mean Blood Pressure Mean [Right Arm] 88 02 Sat by Pulse Oximetry 96 97 99 06/08/24 19:30 06/08/24 19:45 06/08/24 19:59 Temperature Temperature Source Pulse Rate 78 81 86 Pulse Rate [Left Radial] Respiratory Rate Blood Pressure 106/56 L Blood Pressure [Right Arm] Blood Pressure Mean Blood Pressure Mean [Right Arm] 02 Sat by Pulse Oximetry 100 100 98 06/08/24 20:01 06/08/24 20:15 06/08/24 20:30 Temperature Temperature Source Pulse Rate 82 78 79 Pulse Rate [Left Radial] Respiratory Rate Blood Pressure 115/67 121/69 Blood Pressure [Right Arm] Blood Pressure Mean 86 Blood Pressure Mean [Right Arm] 02 Sat by Pulse Oximetry 98 99 100 06/08/24 21:00 06/08/24 21:30 06/08/24 21:50 Temperature Temperature Source Pulse Rate 71 76 Pulse Rate [Left Radial] Respiratory Rate 21 16 17 Blood Pressure 98/62 L 100/61 L Blood Pressure [Right Arm] Blood Pressure Mean 78 Blood Pressure Mean [Right Arm] 02 Sat by Pulse Oximetry 96 98 06/08/24 22:00 06/08/24 22:15 06/08/24 22:30 Temperature Temperature Source Pulse Rate 78 72 Pulse Rate [Left Radial] Respiratory Rate 12 14 14 Blood Pressure 108/60 L 106/61 L Blood Pressure [Right Arm] Blood Pressure Mean Blood Pressure Mean [Right Arm] 02 Sat by Pulse Oximetry 98 96 06/08/24 23:00 Temperature Temperature Source Pulse Rate Pulse Rate [Left Radial] Respiratory Rate 15 Blood Pressure 114/69 Blood Pressure [Right Arm] Blood Pressure Mean Blood Pressure Mean [Right Arm] 02 Sat by Pulse Oximetry Lab Data Lab Results 06/08/24 20:40: WBC 3.7 L, RBC 2.90 L, Hgb 7.4 L, Hct 24.7 L, MCV 85.2, MCH 25.5 L, MCHC 30.0 L, RDW 20.0 H, Plt Count 102 L, MPV 10.0, Neut % (Auto) 70.8, Lymph % (Auto) 18.3, Elmore % (Auto) 4.9, Eos % (Auto) 4.9, Baso % (Auto) 0.8, Neut # (Auto) 2.6, Lymph # (Auto) 0.7, Elmore # (Auto) 0.2, Eos # (Auto) 0.2, Baso # (Auto) 0.0, PT 11.9, INR 1.07, Sodium 134 L, Potassium 2.7 L*, Chloride 99, C arbon Dioxide 31 H, Anion Gap 6.7, BUN 12, Creatinine 0.70, Estimated Creat Clear 47, Estimated GFR 84, Est GFR ( Amer) 102, Glucose 100, Lactate 1.2, Calcium 8.2 L, Total Bilirubin 0.9, AST 44 H, ALT 20, Alkaline Phosphatase 131 H, Total Protein 6.4, Albumin 2.8 L, Globulin 3.6 H, Albumin/Globulin Ratio 0.8 L 06/08/24 20:40 06/08/24 20:40 Orders (Tests/Meds): ED MEDICATIONS Generic Name Dose Route Start Last Admin Trade Name Freq PRN Reason Stop Dose Admin Potassium Chloride/Water 100 mls @ 100 mls/hr 06/09/24 00:28 Potassium Chloride 10meq/100ml Ivpb IV 06/09/24 02:27 Q1H DORINA Sodium Chloride 10 ml 06/08/24 21:50 06/08/24 21:52 Sodium Chloride 0.9% 10ml Syr (Rad Only) IV 07/08/24 21:49 10 ml NEEDED PRN Administration Maintain IV Site Discontinued Medications Generic Name Dose Route Start Last Admin Trade Name Freq PRN Reason Stop Dose Admin Potassium Chloride/Water 100 mls @ 100 mls/hr 06/08/24 21:04 06/08/24 22:28 Potassium Chloride 10meq/100ml Ivpb IV 06/08/24 23:03 100 mls/hr Q1H DORINA Administration Iopamidol 80 ml 06/08/24 21:50 06/08/24 21:52 Iopamidol-370 (76%);100ml Bottle IV 03/29/25 21:51 80 ml ONCE ONE Administration Sodium Chloride 40 ml 06/08/24 21:50 06/08/24 21:51 0.9 % Sodium Chloride 50 Ml Vial IV 06/08/24 21:51 40 ml ONCE ONE Administration ORDERS Category Date Time Status CT angio abdomen pelvis Stat Cat Scan 06/08/24 19:15 Completed CBC w/Auto Diff [Complete Blood Count Auto Diff] Stat Lab 06/08/24 20:40 Completed CMP [Comprehensive Metabolic Panel] Stat Lab 06/08/24 20:40 Completed Lactic Acid Stat Lab 06/08/24 20:40 Completed PT INR [Prothrombin Time INR] Stat Lab 06/08/24 20:40 Completed Urinalysis and Microscopic Stat Lab 06/08/24 22:20 Ordered EKG Request [ECG Request] Stat Y 06/08/24 21:04 Ordered Medical Decision Narrative: In summary, this 63 yo F w/ Hx Carlisle's esophagus, GERD, 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 On initial evaluation patient is normotensive, nontachycardic, chronically ill-appearing but in no acute distress. Differential diagnosis includes but is not limited to diverticulosis, diverticulitis, esophageal variceal bleeding. Based on these concerns, I ordered CBC, CMP, CTA abdomen pelvis. Patient received 500 cc of lactated Ringer's for treatment. Labs personally reviewed demonstrate hemoglobin of 7.4 which is increased from 7.2 on 06/04, hypokalemia at 2.7 from 3.7 on 06/04. Ordered IV potassium repletion. Obtained EKG which was independently interpreted by me, revealing of normal sinus rhythm at a rate of 73, QTc 436, normal axis, no STEMI or concerning EKG changes in the setting of acute hypokalemia. CT imaging personally interpreted demonstrates no active extravasation or other acute intra-abdominal pathology. Discussed admission with hospital medicine here, however it was felt by her GI specialist during her last admission that she would need to be transferred to should she represent due to the complexity. GI would not be available for scope over the weekend. Considering that patient could decompensate acutely and needed more urgent intervention, will need to transfer to another facility. At the time of shift change, official transfer to higher level of care was pending. Care handed off to Dr. Willson. <Jimmy Willson MD - Last Filed: 06/09/24 00:52> Vital Signs: 06/08/24 19:03 06/08/24 19:10 06/08/24 19:15 Temperature 97.9 F Temperature Source Oral Pulse Rate 81 82 Pulse Rate [Left Radial] 69 Respiratory Rate 16 Blood Pressure Blood Pressure [Right Arm] 129/68 Blood Pressure Mean Blood Pressure Mean [Right Arm] 88 02 Sat by Pulse Oximetry 96 97 99 06/08/24 19:30 06/08/24 19:45 06/08/24 19:59 Temperature Temperature Source Pulse Rate 78 81 86 Pulse Rate [Left Radial] Respiratory Rate Blood Pressure 106/56 L Blood Pressure [Right Arm] Blood Pressure Mean Blood Pressure Mean [Right Arm] 02 Sat by Pulse Oximetry 100 100 98 06/08/24 20:01 06/08/24 20:15 06/08/24 20:30 Temperature Temperature Source Pulse Rate 82 78 79 Pulse Rate [Left Radial] Respiratory Rate Blood Pressure 115/67 121/69 Blood Pressure [Right Arm] Blood Pressure Mean 86 Blood Pressure Mean [Right Arm] 02 Sat by Pulse Oximetry 98 99 100 06/08/24 21:00 06/08/24 21:30 06/08/24 21:50 Temperature Temperature Source Pulse Rate 71 76 Pulse Rate [Left Radial] Respiratory Rate 21 16 17 Blood Pressure 98/62 L 100/61 L Blood Pressure [Right Arm] Blood Pressure Mean 78 Blood Pressure Mean [Right Arm] 02 Sat by Pulse Oximetry 96 98 06/08/24 22:00 06/08/24 22:15 06/08/24 22:30 Temperature Temperature Source Pulse Rate 78 72 Pulse Rate [Left Radial] Respiratory Rate 12 14 14 Blood Pressure 108/60 L 106/61 L Blood Pressure [Right Arm] Blood Pressure Mean Blood Pressure Mean [Right Arm] 02 Sat by Pulse Oximetry 98 96 06/08/24 23:00 Temperature Temperature Source Pulse Rate Pulse Rate [Left Radial] Respiratory Rate 15 Blood Pressure 114/69 Blood Pressure [Right Arm] Blood Pressure Mean Blood Pressure Mean [Right Arm] 02 Sat by Pulse Oximetry Lab Data Lab Results 06/08/24 20:40: WBC 3.7 L, RBC 2.90 L, Hgb 7.4 L, Hct 24.7 L, MCV 85.2, MCH 25.5 L, MCHC 30.0 L, RDW 20.0 H, Plt Count 102 L, MPV 10.0, Neut % (Auto) 70.8, Lymph % (Auto) 18.3, Elmore % (Auto) 4.9, Eos % (Auto) 4.9, Baso % (Auto) 0.8, Neut # (Auto) 2.6, Lymph # (Auto) 0.7, Elmore # (Auto) 0.2, Eos # (Auto) 0.2, Baso # (Auto) 0.0, PT 11.9, INR 1.07, Sodium 134 L, Potassium 2.7 L*, Chloride 99, C arbon Dioxide 31 H, Anion Gap 6.7, BUN 12, Creatinine 0.70, Estimated Creat Clear 47, Estimated GFR 84, Est GFR ( Amer) 102, Glucose 100, Lactate 1.2, Calcium 8.2 L, Total Bilirubin 0.9, AST 44 H, ALT 20, Alkaline Phosphatase 131 H, Total Protein 6.4, Albumin 2.8 L, Globulin 3.6 H, Albumin/Globulin Ratio 0.8 L Orders (Tests/Meds): ED MEDICATIONS Generic Name Dose Route Start Last Admin Trade Name Freq PRN Reason Stop Dose Admin Potassium Chloride/Water 100 mls @ 100 mls/hr 06/09/24 00:28 Potassium Chloride 10meq/100ml Ivpb IV 06/09/24 02:27 Q1H DORINA Sodium Chloride 10 ml 06/08/24 21:50 06/08/24 21:52 Sodium Chloride 0.9% 10ml Syr (Rad Only) IV 07/08/24 21:49 10 ml NEEDED PRN Administration Maintain IV Site Discontinued Medications Generic Name Dose Route Start Last Admin Trade Name Freq PRN Reason Stop Dose Admin Potassium Chloride/Water 100 mls @ 100 mls/hr 06/08/24 21:04 06/08/24 22:28 Potassium Chloride 10meq/100ml Ivpb IV 06/08/24 23:03 100 mls/hr Q1H DORINA Administration Iopamidol 80 ml 06/08/24 21:50 06/08/24 21:52 Iopamidol-370 (76%);100ml Bottle IV 06/08/24 21:51 80 ml ONCE ONE Administration Sodium Chloride 40 ml 06/08/24 21:50 06/08/24 21:51 0.9 % Sodium Chloride 50 Ml Vial IV 06/08/24 21:51 40 ml ONCE ONE Administration ORDERS Category Date Time Status CT angio abdomen pelvis Stat Cat Scan 06/08/24 19:15 Completed CBC w/Auto Diff [Complete Blood Count Auto Diff] Stat Lab 06/08/24 20:40 Completed CMP [Comprehensive Metabolic Panel] Stat Lab 06/08/24 20:40 Completed Lactic Acid Stat Lab 06/08/24 20:40 Completed PT INR [Prothrombin Time INR] Stat Lab 06/08/24 20:40 Completed Urinalysis and Microscopic Stat Lab 06/08/24 22:20 Ordered EKG Request [ECG Request] Stat Y 06/08/24 21:04 Ordered Medical Decision Narrative: In summary, this 63 yo F w/ Hx Carlisle's esophagus, GERD, 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 On initial evaluation patient is normotensive, nontachycardic, chronically ill-appearing but in no acute distress. Differential diagnosis includes but is not limited to diverticulosis, diverticulitis, esophageal variceal bleeding. Based on these concerns, I ordered CBC, CMP, CTA abdomen pelvis. Patient received 500 cc of lactated Ringer's for treatment. Labs personally reviewed demonstrate hemoglobin of 7.4 which is increased from 7.2 on 06/04, hypokalemia at 2.7 from 3.7 on 06/04. Ordered IV potassium repletion. Obtained EKG which was independently interpreted by me, revealing of normal sinus rhythm at a rate of 73, QTc 436, normal axis, no STEMI or concerning EKG changes in the setting of acute hypokalemia. CT imaging personally interpreted demonstrates no active extravasation or other acute intra-abdominal pathology. Discussed admission with hospital medicine here, however it was felt by her GI specialist during her last admission that she would need to be transferred to should she represent due to the complexity. GI would not be available for scope over the weekend. Considering that patient could decompensate acutely and needed more urgent intervention, will need to transfer to another facility. At the time of shift change, official transfer to higher level of care was pending. Care handed off to Dr. Willson. Willson: Upon my assumption of care patient is stable, resting comfortably at this time. She is not tachycardic or hypotensive. She is saturating 99% on room air. Abdomen is soft and nontender. Review of labs demonstrates patient is anemic with hemoglobin 7.4. She also just had a large hematochezia bowel movement in the ER. CT abdomen pelvis was reviewed and patient does not have any active extravasation. Reached out to other facilities including [facility]. [facility] does not have GI available. [facility] does not have GI available over the weekend in case the patient would decompensate. Unfortunately they are unable to accept the patient. [facility] was contacted as well and they do not have any bed availability. Reaching out to [facility] at this time awaiting a callback. 0018 I received a call back from [facility] and was able to speak with the hospitalist Elgin Wells, nurse practitioner. We discussed this case and he graciously [facility] Accepting physician is Dr. Mauro. Transfer center verified with GI that patient is appropriate for transfer since her MELD is 14. Patient is appropriate for transfer and will go via ALS since she is receiving additional IV potassium and will require cardiac monitoring. 0050 EMS arrived to the hospital for patient transfer. Patient was reassessed at this time. Patient transferred in stable condition. Critical Care <Naun Carson MD - Last Filed: 06/08/24 23:47> Critical Care Time Critical Care Time: No
[2024-06-08 20:50] LABS: Basophils % 0.8 % (0.1-2.0); Eosinophils # 0.2 K/mm3 (0.0-0.4); Eosinophils % 4.9 % (0.1-12.0); Hematocrit 24.7 % (37.0-47.0); Hemoglobin 7.4 g/dL (12.2-16.2); Lymphocytes # 0.7 K/mm3 (0.7-4.5); Lymphocytes % 18.3 % (10-50); Mean Corpuscular Hemoglobin 25.5 pg (27.0-31.2); Mean Corpuscular Volume 85.2 fl (81-99); Monocytes # 0.2 K/mm3 (0.1-1.0); Monocytes % 4.9 % (1.7-9.3); Neutrophils # 2.6 K/mm3 (1.8-7.8); Neutrophils % 70.8 % (37.0-80.0); Platelet Count 102 K/mm3 (142-424); White Blood Count 3.7 K/mm3 (4.8-10.8)
[2024-06-08 20:55] LABS: Albumin Level 2.8 g/dl (3.5-5.0); Chloride 99 mmol/L (98-107); Sodium 134 mmol/L (136-145)
[2024-06-08 20:58] LABS: Alanine Aminotransferase 20 U/L (12-78); Albumin/Globulin Ratio 0.8 (1.1-1.8); Alkaline Phosphatase 131 U/L (38-126); Anion Gap 6.7 mEq/L (5-15); Aspartate Amino Transferase 44 U/L (14-36); Bilirubin,Total 0.9 mg/dl (0.2-1.3); Blood Urea Nitrogen 12 mg/dl (7-17); Carbon Dioxide 31 mmol/L (22.0-30.0); Creatinine Clearance Estimated 47 mL/min (50-200); Estimated Glomerular Filt Rate 84 ml/min (>60); GFR (African American) 102 ML/MIN (>60); Globulin 3.6 g/dL (1.3-3.2); Total Protein,Serum 6.4 g/dl (6.3-8.2)
[2024-06-08 20:59] LABS: Calcium 8.2 mg/dl (8.4-10.2); Glucose 100 mg/dl (74-100); INR 1.07 (0.9-1.1); Lactic Acid 1.2 mmol/L (0.7-2.1); Prothrombin Time 11.9 seconds (10.1-12.5)
[2024-06-08 21:00] LABS: Potassium 2.7 mmoL/L (3.5-5.1)
--- NOTE | 2024-06-08 21:00 | PC.NURSE ---
lab calls K of 2.7. Dr Carson notified
--- NOTE | 2024-06-08 21:04 | ECG_ITS ---
APPROVED REPORT Exam: Resting ECG HR:73 bpm ECG Measurements Heart Rate 73 AXES AR 140 P 67 QRSd 94 QRS 26 QT 410 T 69 QTc 436 Conclusion SINUS RHYTHM NORMAL ECG Electronically signed by : TAMMY GREENBERG, 06/09/2024 00:19:17
[2024-06-08] MEDS: KCl 10mEq/100ml 100 ML 100 MEQ IV ×2 (21:17→22:28)
[2024-06-08] MEDS: 0.9 % SODIUM CHLORIDE 50 ML VIAL 40 ML IV (21:51)
[2024-06-08] MEDS: SODIUM CHLORIDE 0.9% 10ML SYR (RAD ONLY) 10 ML IV (21:52)
[2024-06-08] MEDS: IOPAMIDOL-370 (76%);100ML BOTTLE 80 ML IV (21:52)
--- NOTE | 2024-06-08 22:57 | PC.NURSE ---
Assisted the patient to the restroom and she was helped back to the bed.
--- NOTE | 2024-06-08 23:23 | PC.NURSE ---
decision to transfer patient at this time. Pt aox4, nad noted, rr even and non labored, skin slightly pale, warm and dry.
--- NOTE | 2024-06-08 23:30 | PC.NURSE ---
Spoke with [facility], awaiting a call back at this time.
--- NOTE | 2024-06-08 23:53 | PC.NURSE ---
Spoke with [facility]. they are going to give us a call back as soon as they can.
--- NOTE | 2024-06-09 00:15 | PC.NURSE ---
speaking with [facility]
--- NOTE | 2024-06-09 00:24 | PC.NURSE ---
Pt accepted to [facility], awaiting bed assignment
[2024-06-09] MEDS: KCl 10mEq/100ml 100 ML 100 MEQ IV (00:57)
[2024-06-09 01:12] VITALS: BP 106/61; PULSE 72; RESP 16; TEMP 36.6; O2SAT 99
== END 2024-06-09 01:14 | disposition short-term general hospital (02) ==
PROVIDERS: Emergency Provider Student in an Organized Health Care Education/Training Program; PCP Internal Medicine Adolescent Medicine
DX: K62.5 Hemorrhage of anus and rectum (principal); K21.9 Gastro-esophageal reflux disease without esophagitis; K22.70 Barrett's esophagus without dysplasia; D64.9 Anemia, unspecified; K75.81 Nonalcoholic steatohepatitis (NASH); K71.7 Toxic liver disease with fibrosis and cirrhosis of liver; K76.6 Portal hypertension; I85.10 Secondary esophageal varices without bleeding; D69.6 Thrombocytopenia, unspecified; M54.10 Radiculopathy, site unspecified; M81.0 Age-related osteoporosis without current pathological fracture; I51.9 Heart disease, unspecified; J38.2 Nodules of vocal cords; I86.4 Gastric varices; Z87.891 Personal history of nicotine dependence; Z98.890 Other specified postprocedural states; Z82.3 Family history of stroke; Z83.3 Family history of diabetes mellitus; Z80.9 Family history of malignant neoplasm, unspecified; Z82.0 Family history of epilepsy and other diseases of the nervous system
CPT/HCPCS: 74174; 80053; 83605; 85025; 85610; 93005; 96360; 96365; 96366; 99285; J3480; Q9967

== ENCOUNTER 2024-06-18 15:11 | Outpatient (CLI) | payer BC, SELFPAY ==
--- NOTE | 2024-06-18 15:12 | XR_ITS ---
FINAL REPORT CLINICAL HISTORY: left fore arm fx post cast removal COMPARISON: 05/21/2024 FINDINGS: RIGHT FOREARM 2 views were obtained. There are transverse fractures of the distal radius and ulna. There is significant dorsal displacement and angulation of the distal radial fracture. This appears similar to the prior exam. Bony union appears incomplete. Osteopenia is noted. IMPRESSION: Incomplete healing of the distal radial and ulnar fractures. Reviewed, Interpreted and Dictated by Hayes Baker MD Transcribed by Savannah Castro Authenticated and [facility]
--- OUTSIDE RECORDS SUMMARY | 2024-06-20 21:37 | XMS_ITS | Clinical Summary ---
Author Organization [facility] Address [address] [place] [address] Phone Care Team Providers Care Cooker Syrup Name Role Phone HARI REID, AMARA Unavailable [phone] Elliott REID, Jude Unavailable [phone] Reason for Visit and Chief Complaint The Chief Complaint is: Low back pain Problems Includes: Problems addressed during this encounter and other active Problems Current Visit Onset Date Resolved Date Provider Esperanza moore Status Lower Back Pain 09/09/2022 Az Amador PA-C A ctive Last Documented On 3 9:26AM ; [facility] Plan of Treatment Patient was seen by myself Az Amador PA-C. Patient will follow up after lumbar spine and thoracic spine MRI to see if any of these are new compression fractures. - Last Documented On 09/09/2022 12:18PM ; [facility] Pending Tests Order Diagnosis Results Due Ordering P rovider Radiology - MRI MRI Thoracic Spine Low back pain , unspecified 09/23/22 Az Amador PA-C Last Documented On 3 12:18PM ; [facility] Radiology - MRI MRI Lumbar Spine Low back pain, unspecified 09/23/22 Az Amador PA-C Last Documented On 3 12:18PM ; [facility] Assessments Includes: Assessments from this encounter Findings Thoracic and lumbar back pain with a history of a previous kyphoplasty at L3 possible new compression fractures - Last Documented On 09/09/2022 12:18PM ; [facility] Medical Equipment - Implanted Devices Includes: Current Devices No Medical Equipment Recorded Medications Includes: Medications discussed during this encounter and other current Medications Current Medications (continue as prescribed) Pantoprazole Sodium 40 MG Oral Tablet Delayed Release 09/22/2022 Provider: Diagnosis: Last Documented On 3 9:47AM By Ana Rosa Ordaz ; [facility] MAGnesium-Oxide 400 (240 Mg) MG Oral Tablet 09/22/2022 Provider: Diagnosis: Last Documented On 3 9:48AM By Ana Rosa Ordaz ; [facility] oxyCODONE-Acetaminophen 5-325 MG Oral Tablet Provider: Diagnosis: Last Documented On 3 9:26AM By Nori Rsoales ; [facility] predniSONE 20 MG Oral Tablet 09/02/2022 Provider: Diagnosis: Last Documented On 3 9:26AM By Nori Rosales ; [facility] Constulose 10 GM/15ML Oral Solution 08/24/2022 Provi alba: AMARA NORIEGA MD Diagnosis: Last Documented On 3 9:26AM By Nori Rosales ; [facility] tiZANidine HCl 2 MG Oral Tablet 08/09/2022 Provider: AMARA NORIEGA MD Diagnosis: Last Documented On 3 9:26AM By Nori Rosales ; [facility] Medications Administered Includes: Administered Medications from this encounter No Administered Medications Recorded Vital Signs Includes: Vital Signs from this encounter Vital Name 09/09/2022 09:27A Height (in) 65 Weight (lb) 120 Body Mass Index 20 Body Surface Area 1.6 Note: mg Last Documented: On 09/09/2022 9:33AM ; [facility] Results Includes: Results discussed during this encounter [...] Time Diagnosis Physician Specified Az Amador PA-C [facility] 09/10/19 23 9:10AM 9:50AM Insurance Includes: Active Insurance Policies Plan Name Member ID Group # Subscriber Relationship Effect jose Dates 1 - [facility] [id number] Sierra Leblanc Self Clinical Notes Includes: Clinical Notes from this encounter * Progress note Date Encounter Last Documented by 09/09/2022 Physician Specified Last ismael velazquez on 09/09/2022; 12:18 PM, Az Amador PA-C; [facility] Active Problems & Conditions - Lower Back [...] Care Team - AMARA NORIEGA MD - AIR BRAKE OPERATOR
--- OUTSIDE RECORDS SUMMARY | 2024-06-20 21:37 | XMS_ITS ---
Author Organization [facility] , [facility] Address [address] [place] [address] Phone Care Team Providers Care Security Operations Center Analyst Name Role Phone HARI REID, AMARA Unavailable [phone] Elliott REID, Jude Unavailable [phone] Problems Includes: Active, inactive, and resolved Problems All Visits Onset Date Resolved Date Provider Condition S tatus Lower Back Pain 09/09/2022 Az Amador PA-C A ctive Last Documented On 3 9:26AM ; [facility] Plan of Treatment Pending Tests Order Diagnosis Results Due Ordering P rovider Radiology - MRI MRI Thoracic Spine Low back pain , unspecified 09/23/22 Az Amador PA-C Last Documented On 3 12:18PM ; [facility] Radiology - MRI MRI Lumbar Spine Low back pain, unspecified 09/23/22 Az Amador PA-C Last Documented On 3 12:18PM ; [facility] Referrals To Diagnosis Consult for Pain Management Note: dr. best -[facility] trial - pt prefers pm appt Last Documented On 4 9:47AM ; [facility] Assessments Includes: Assessments for all patient encounters No Assessments Recorded Medical Equipment - Implanted Devices Includes: Current and historical Devices No Medical Equipment Recorded Medications Includes: Current and historical Medications Current Medications (continue as prescribed) Pantoprazole Sodium 40 MG Oral Tablet Delayed Release 09/22/2022 Provider: Diagnosis: Last Documented On 3 9:47AM By Ana Rosa Ordaz ; [facility] MAGnesium-Oxide 400 (240 Mg) MG Oral Tablet 09/22/2022 Provider: Diagnosis: Last Documented On 3 9:48AM By Ana Rosa Ordaz ; [facility] oxyCODONE-Acetaminophen 5-325 MG Oral Tablet 3 Provider: Diagnosis: Last Documented On 3 9:26AM By Nori Rosales ; [facility] predniSONE 20 MG Oral Tablet 09/02/2022 Provider: Diagnosis: Last Documented On 3 9:26AM By Nori Rosales ; [facility] Constulose 10 GM/15ML Oral Solution 08/24/2022 Provi abla: AMARA NORIEGA MD Diagnosis: Last Documented On 3 9:26AM By Nori Rosales ; [facility] tiZANidine HCl 2 MG Oral Tablet 08/09/2022 Provider: AMARA NORIEGA MD Diagnosis: Last Documented On 3 9:26AM By Nori Rosales ; [facility] Medications Administered Includes: Administered Medications in patient's chart No Administered Medications Recorded Results Includes: Results from 06/21/2023 through 06/20/2024 No Results Recorded For Specified Dates History of Present Illness History of Present Illness not supported for this document type No History of Present Illness Recorded Social History Description Last Updated Caffeine use 09/22/2022 Last Documented On 4 9:18AM ; [facility] Exercising regularly 09/22/2022 Last Documented On 4 9:18AM ; [facility] Not a current smoker. 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 Documented On 3 5:23PM ; [facility] Smoking Status Unknown Procedures and Surgical History Surgical History Last Updated Past Surgical History: ~Nodule s removed from throat 09/22/2022 Last Documented On 4 9:18AM ; [facility] Medical History Includes: Medical History in patient's chart Description Last Updated History of Anemia 09/22/2022 Last Documented On 4 9:18AM ; [facility] History of arthritis 09/22/2022 Last Documented On 4 9:18AM ; [facility], [facility] History of Fractures 09/22/2022 Last Documented On 4 9:18AM ; [facility], [facility] History of hepatitis 09/22/2022 Last Documented On 4 9:18AM ; [facility], [facility] History of History of Blood Transfusion 09/22/2022 Last Documented On 4 9:18AM ; [facility], [facility] History of Liver Disease 09/22/2022 Last Documented On 4 9:18AM ; [facility], [facility] History of Previous Fractures 09/22/2022 Last Documented On 4 9:18AM ; [facility], [facility] Family History Includes: Family History in patient's chart Description Last Updated Diabetes mellitus 09/22/2022 Last Documented On 4 9:18AM ; [facility] Family history of cancer 09/22/2022 Last Documented On 4 9:18AM ; [facility], [facility] Family history of heart disease 09/23/19 23 Last Documented On 4 9:18AM ; [facility], [facility] Family history of rheumatoid arthritis 0 09/22/2022 Last Documented On 4 9:18AM ; [facility], [facility] Stroke / Seizures 09/22/2022 Last Documented On 4 9:18AM ; [facility] Review of Systems Review of Systems [...] Subscriber Relationship Effect jose Dates 1 - [facility] [id number] Sierra Daniel [employer] Self Clinical Notes Includes: Signed Clinical Notes starting from 02/24/2022 No Clinical Notes Recorded
--- OUTSIDE RECORDS SUMMARY | 2024-06-20 21:37 | XMS_ITS | Clinical Summary ---
Author Organization [facility] , [facility] Address [address] [place] [address] Phone Care Team Providers Care Quality Control Head Name Role Phone HARI REID, AMARA Unavailable [phone] Elliott REID, Jude Unavailable [phone] Reason for Visit and Chief Complaint The Chief Complaint is: Low back pain Problems Includes: Problems addressed during this encounter and other active Problems Current Visit Onset Date Resolved Date Provider Esperanza moore Status Lower Back Pain 09/09/2022 Az Amador PA-C A ctive Last Documented On 3 9:26AM ; [facility] Plan of Treatment Patient was seen by myself Az Amador PA-C. On we will have her see Dr. Cota to review both the lumbar and thoracic spine MRIs. - Last Documented On 09/20/2022 5:23PM ; [facility] Pending Tests Order Diagnosis Results Due Ordering P rovider Radiology - MRI MRI Thoracic Spine Low back pain , unspecified 09/23/22 Az Amador PA-C Last Documented On 3 12:18PM ; [facility] Radiology - MRI MRI Lumbar Spine Low back pain, unspecified 09/23/22 Az Amador PA-C Last Documented On 3 12:18PM ; [facility] Assessments Includes: Assessments from this encounter Findings T7 and possibly T8 compression fractures - Last Documented On 09/20/2022 5:23PM ; [facility] Medical Equipment - Implanted Devices Includes: Current Devices No Medical Equipment Recorded Medications Includes: Medications discussed during this encounter and other current Medications Current Medications (continue as prescribed) Pantoprazole Sodium 40 MG Oral Tablet Delayed Release 09/22/2022 Provider: Diagnosis: Last Documented On 3 9:47AM By Ana Rosa Ordaz ; [facility] MAGnesium-Oxide 400 (240 Mg) MG Oral Tablet 09/22/2022 Provider: Diagnosis: Last Documented On 3 9:48AM By Ana Rosa Ordaz ; [facility] oxyCODONE-Acetaminophen 5-325 MG Oral Tablet Provider: Diagnosis: Last Documented On 3 9:26AM By Nori Rosales ; [facility] predniSONE 20 MG Oral Tablet 09/02/2022 Provider: Diagnosis: Last Documented On 3 9:26AM By Nori Rosales ; [facility] Constulose 10 GM/15ML Oral Solution 08/24/2022 Provi alba: AMARA NORIEGA MD Diagnosis: Last Documented On 3 9:26AM By Nori Rosales ; [facility] tiZANidine HCl 2 MG Oral Tablet 08/09/2022 Provider: AMARA NORIEGA MD Diagnosis: Last Documented On 3 9:26AM By Nori Rosales ; [facility] Medications Administered Includes: Administered Medications from this encounter No Administered Medications Recorded Vital Signs Includes: Vital Signs from this encounter Vital Name 09/20/2022 03:10P Height (in) 65 Weight (lb) 120 Body Mass Index 20 Body Surface Area 1.6 Note: mg Last Documented: On 09/20/2022 3:10PM ; [facility] Results Includes: Results discussed during this [...] in 2020 with a different surgeon in [place]. She is here to be doing okay until last few months when she had bent over in her yard and felt something kind of pop in her back most this pain seems to be in the middle part of her back no radicular symptoms. 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 Documented On 3 5:23PM ; [facility] Smoking Status Unknown Procedures and Surgical History Includes: Procedures from this encounter Procedures Code Diagnosis Performing Provider Service L ocation Service Date use of tobacco assessment performed 1000F Last Documented On 3 3:10PM ; [facility] Medical History Includes: Medical History addressed during [...] Time Diagnosis Follow Up [facility]:09[facility] 3:49[facility] Insurance Includes: Active Insurance Policies Plan Name Member ID Group # Subscriber Relationship Effect jose Dates - [facility] [id number] Sierra Leblanc Self Clinical Notes Includes: Clinical Notes from this encounter * Progress note Date Encounter Last Documented by 09/20/2022 Follow Up Last documented on 09/20/2022; 5:23 PM, Az Amador PA-C; [facility] Active Problems & Conditions - Lower [...] in 2020 with a different surgeon in [place]. She is here to be doing okay [...] History Tobacco use: Tobacco non-user. 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 Allergies - No Known Allergies Review Of [...] Care Team - AMARA NORIEGA MD - ORCHID TRANSPLANTER
--- OUTSIDE RECORDS SUMMARY | 2024-06-20 21:37 | XMS_ITS ---
Care Plan - [facility] Created on: June 20, 2024 Sierra Leblanc : 1960 Sex: Female Author Organization [facility] Address [address] [place] [address] Phone Care Team Providers Care Agricultural Technical Officer Name Role Phone HARI REID, AMARA Unavailable [phone] Elliott REID, Jude Unavailable [phone]
--- OUTSIDE RECORDS SUMMARY | 2024-06-20 21:37 | XMS_ITS | Clinical Summary ---
Author Organization [facility] , [facility] Address [address] [place] [address] Phone Care Team Providers Care Piler Name Role Phone HARI REID, AMARA Unavailable [phone] Elliott REID, Jude Unavailable [phone] Reason for Visit and Chief Complaint The Chief Complaint is: Low back pain Problems Includes: Problems addressed during this encounter and other active Problems Current Visit Onset Date Resolved Date Provider Esperanza moore Status Lower Back Pain 09/09/2022 Az Amador PA-C A ctive Last Documented On 3 9:26AM ; [facility] Plan of Treatment Referrals To Diagnosis Consult for Pain Management Note: dr. best -[facility] trial - pt prefers pm appt Last Documented On 4 9:47AM ; [facility] Assessments Includes: Assessments from this encounter Findings T7 and possibly T8 compression fractures - Last Documented On 05/26/2023 9:18AM ; [facility] Medical Equipment - Implanted Devices Includes: Current Devices No Medical Equipment Recorded Medications Includes: Medications discussed during this encounter and other current Medications Current Medications (continue as prescribed) Pantoprazole Sodium 40 MG Oral Tablet Delayed Release 09/22/2022 Provider: Diagnosis: Last Documented On 3 9:47AM By Ana Rosa Ordaz ; [facility] MAGnesium-Oxide 400 (240 Mg) MG Oral Tablet 09/22/2022 Provider: Diagnosis: Last Documented On 3 9:48AM By Ana Rosa Ordaz ; [facility] oxyCODONE-Acetaminophen 5-325 MG Oral Tablet Provider: Diagnosis: Last Documented On 3 9:26AM By Nori Painting [facility] predniSONE 20 MG Oral Tablet 09/02/2022 Provider: Diagnosis: Last Documented On 3 9:26AM By Nori Rosales ; [facility] Constulose 10 GM/15ML Oral Solution 08/24/2022 Provi alba: AMARA NORIEGA MD Diagnosis: Last Documented On 3 9:26AM By Nori Rosales ; [facility] tiZANidine HCl 2 MG Oral Tablet 08/09/2022 Provider: AMARA NORIEGA MD Diagnosis: Last Documented On 3 9:26AM By Nori Rosales ; [facility], [facility] Medications Administered Includes: Administered Medications from this encounter No Administered Medications Recorded Vital Signs Includes: Vital Signs from this encounter Vital Name 09/22/2022 09:35A Height (in) 65 Weight (lb) 120 Body Mass Index 20 Body Surface Area 1.6 Note: mg Last Documented: On 09/22/2022 9:36AM ; [facility] Results Includes: Results discussed during this encounter No Results Recorded For Specified Dates History of Present Illness Includes: History of Present Illness from this encounter JAMAL Leblanc is a 61 year old female. - Allergy list reviewed - Problem list reviewed - Medication list reviewed Social History Description Last Updated Caffeine use 09/22/2022 Last Documented On 4 9:18AM ; [facility] Exercising regularly 09/22/2022 Last Documented On 4 9:18AM ; [facility] Not a current smoker. 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 Documented On 3 9:35AM ; [facility], [facility] Smoking Status Unknown Procedures and Surgical History Includes: Procedures from this encounter Procedures Code Diagnosis Performing Provider Service L ocation Service Date use of tobacco assessment performed 1000F Last Documented On 3 9:35AM ; [facility], [facility] review of medications documented 1160F Last Documented On 4 9:18AM ; [facility], [facility] Surgical History Last Updated Past Surgical History: ~Nodule s removed from throat 09/22/2022 Last Documented On 4 9:18AM ; [facility], [facility] Medical History Includes: Medical History addressed during this encounter Description Last Updated History of Anemia 09/22/2022 Last Documented On 4 9:18AM ; [facility], [facility] History of arthritis 09/22/2022 Last Documented On 4 9:18AM ; [facility], [facility] History of Fractures 09/22/2022 Last Documented On 4 9:18AM ; [facility], [facility] History of hepatitis 09/22/2022 Last Documented On 4 9:18AM ; [facility], [facility] History of History of Blood Transfusion 09/22/2022 Last Documented On 4 9:18AM ; [facility], [facility] History of Liver Disease 09/22/2022 Last Documented On 4 9:18AM ; [facility], [facility] History of Previous Fractures 09/22/2022 Last Documented On 4 9:18AM ; [facility], [facility] Family History Includes: Family History addressed during this encounter Description Last Updated Diabetes mellitus 09/22/2022 Last Documented On 4 9:18AM ; [facility], [facility] Family history of cancer 09/22/2022 Last Documented On 4 9:18AM ; [facility], [facility] Family history of heart disease 09/23/19 23 Last Documented On 4 9:18AM ; [facility], [facility] Family history of rheumatoid arthritis 0 09/22/2022 Last Documented On 4 9:18AM ; [facility], [facility] Stroke / Seizures 09/22/2022 Last Documented On 4 9:18AM ; [facility] Review of Systems Includes: Review of Systems from this encounter Systemic: Feeling tired. No recent weight loss and no recent weight gain. Head: No headache and no sinus pain. Eyes: No vision problems and no Cataracts. Glasses/Contacts. No Glaucoma. Otolaryngeal: No hearing loss and no [...] Hypothyroid, and no Hyperthyroid. Hematologic: No easy bleeding and no tendency for easy bruising. Anemia. Musculoskeletal: Arthritis. No lower back pain. No soft tissue swelling [...] Time Check- Out Time Diagnosis Follow Up Sheldon Cota MD [facility] 3 9:35AM 10:18AM Insurance Includes: Active Insurance Policies Plan Name Member ID Group # Subscriber Relationship Effect jose Dates 1 - [facility] [id number] [employer] Self Clinical Notes Includes: Clinical Notes from this encounter * Progress note Date Encounter Last Documented by 09/22/2022 Follow Up Last documented on 05/26/2023; 9:18 AM, Sheldon Cota MD; [facility] Active Problems & Conditions - Lower Back Pain Chief Complaint The Chief Complaint is: Low back pain. Referred Here Referred by PCP. History of Present Illness Sierra Leblanc is a 61 year old female. - Allergy list reviewed - Problem list reviewed - Medication list reviewed Current Medication - Constulose 10 GM/15ML Oral Solution 30 days, 0 refills - MAGnesium-Oxide 400 (240 Mg) MG Oral Tablet take as directed 0 days, 0 refills - oxyCODONE-Acetaminophen 5-325 MG Oral Tablet 5 days, 0 refills - Pantoprazole Sodium 40 MG Oral Tablet Delayed Release Tablet, enteric coated take as directed 0 days, 0 refills - predniSONE 20 MG Oral Tablet 5 days, 0 refills - tiZANidine HCl 2 MG Oral Tablet 30 days, 0 refills Past Medical/Surgical History Reported: History of Fractures. Diagnoses: Anemia History of Blood Transfusion Liver Disease. Hepatitis. Arthritis Surgical: - Past Surgical History: Nodules removed from throat - Previous Fractures Social History Not a current smoker. Current diet: Recent change in diet low sodium. Caffeine use: Caffeine use. Tobacco use: Tobacco non-user. Alcohol: Not using alcohol. Drug Use: Not using drugs. Habits: Exercising regularly. 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 Allergies - No Known Allergies Family History Cancer Heart disease Stroke / Seizures Diabetes mellitus Rheumatoid arthritis Review Of Systems Systemic: Feeling tired. No recent weight loss and no recent weight gain. Head: No headache and no sinus pain. Eyes: No vision problems and no Cataracts. Glasses/Contacts. No Glaucoma. Otolaryngeal: No hearing loss and no [...] Hypothyroid, and no Hyperthyroid. Hematologic: No easy bleeding and no tendency for easy bruising. Anemia. Musculoskeletal: Arthritis. No lower back pain. No soft tissue swelling and no localized joint pain. Neurological: No dizziness, no convulsions, and no numbness. Psychological: No anxiety, no emotional lability, no depression, and no insomnia. Not crying for no reason. Skin: No dry skin. No Ulcers, no Scars, and no rash. Allergic and Immunologic: No complaint of seasonal allergic reaction. Physical Findings - Vitals taken 09/22/2022 09:35 am mg Height 65 in Weight 120 lbs Body Mass Index 20 kg/m2 Body Surface Area 1.6 m2 Assessment T7 and possibly T8 compression fractures Previous Tests Available previous imaging studies were reviewed Available previous history reviewed Plan StartCited - Other Referral/Pain Management: Consult for Pain Management Instructions: dr. best -[facility] trial- pt prefers pm appt EndCited Notes This dictation was done with voice recognition software and may contain errors and omissions. Patient is here for follow-up of her thoracic and lumbar MRIs. She has chronic low back pain. She has had previous kyphoplasty in the past. She denies any radicular symptoms. We got x-rays as well today which show a degenerative scoliosis with chronic compression fractures. She is not a good candidate for any kind of reconstruction because of poor bone quality therefore I recommend we do a trial for spinal cord stimulator. We will see her back as needed Practice Management Use of tobacco assessment performed Review of medications documented. Care Team - AMARA NORIEGA MD - QUALITY PROCESS ENGINEER Health Reminders - Assess BMI satisfied 09/22/2022. - Assess Tobacco Use satisfied 09/20/2022.
== END 2024-06-18 23:59 | disposition home or self-care (01) ==
PROVIDERS: PCP Internal Medicine Adolescent Medicine; Visit Provider Physician Assistant Surgical
DX: M79.631 Pain in right forearm (principal); S52.501A Unspecified fracture of the lower end of right radius, initial encounter for closed fracture
CPT/HCPCS: 73090

== ENCOUNTER 2024-06-18 15:54 | Outpatient (RCR) | payer BC, SELFPAY | END 2024-06-18 23:59 | disposition home or self-care (01) | LOC: OT 15:54 | PROVIDERS: Visit Provider Physician Assistant Surgical | DX: S52.501D Unspecified fracture of the lower end of right radius, subsequent encounter for closed fracture with routine healing (principal); S52.601D Unspecified fracture of lower end of right ulna, subsequent encounter for closed fracture with routine healing; X58.XXXD Exposure to other specified factors, subsequent encounter ==

== ENCOUNTER 2024-07-11 13:56 | Outpatient (CLI) | payer BC, SELFPAY ==
--- NOTE | 2024-07-11 13:58 | XR_ITS ---
FINAL REPORT CLINICAL HISTORY: rt wrist pain COMPARISON: 06/27/2023 FINDINGS: RIGHT WRIST Three views of the right wrist are compared to the most recent prior exam of 06/27/2023. Severe osteopenia is present. There is likely a recurrent fracture of the distal radial metaphysis, which is significantly more angulated than that seen on the prior exam of June 2023. There is a new fracture of the distal ulna, as well as volar dislocation of the distal ulna, new since the prior exam. The soft tissues are unremarkable. IMPRESSION: Likely a recurrent fracture of the distal radial metaphysis, significantly more angulated than seen on the prior exam. There is a new fracture of the distal ulna, as well as volar dislocation of the distal ulna, new since the prior exam. Severe osteopenia. Reviewed, Interpreted and Dictated by Tarun Lutz MD Transcribed by Shivani Blanchard Authenticated and [facility]
== END 2024-07-11 23:59 | disposition home or self-care (01) ==
LOC: RAD 13:57
PROVIDERS: PCP Internal Medicine Adolescent Medicine; Visit Provider Physician Assistant Surgical
DX: M25.531 Pain in right wrist (principal); S52.601A Unspecified fracture of lower end of right ulna, initial encounter for closed fracture; S63.074A Dislocation of distal end of right ulna, initial encounter; M85.841 Other specified disorders of bone density and structure, right hand
CPT/HCPCS: 73110